=== PATIENT | male | born 1965 | race Caucasian/White ===

== ENCOUNTER → 2019-12-21 12:27 | Outpatient (BNVA) | payer MEDICARE, MEDICAID, SELFPAY | PROVIDERS: PCP Internal Medicine; Referring Provider Internal Medicine; Visit Provider Internal Medicine Cardiovascular Disease | DX: I45.2 Bifascicular block (principal); F20.9 Schizophrenia, unspecified; Z79.899 Other long term (current) drug therapy | CPT/HCPCS: 99213 ==

== ENCOUNTER 2019-12-28 21:07 | Inpatient (IN) | payer MEDICARE, MEDICAID, SELFPAY ==
--- NOTE | 2019-12-28 21:19 | ED_ITS ---
HPI - Weakness General Chief complaint: Fall Stated complaint: WEAKNESS Time Seen by Provider: 12/28/19 21:19 Source: patient Mode of arrival: ambulatory Limitations: other (cognitive impairment) History of Present Illness MD Complaint: generalized weakness and difficulty walking Onset (ago): day(s) (2) Duration: constant Location: generalized Migration: none Severity: moderate Relieving factors: none Exacerbating factors: none Context: recent illness (had fever yesterday tested for COVID) Associated symptoms: loss of appetite and myalgias Related Data Home Medications Medication Instructions Recorded Confirmed ammonium lactate 12 % topical cream 1 applic TOPICAL DAILY@0730 12/21/19 12/29/19 citalopram 40 mg tablet 40 mg PO DAILY tab 12/21/19 12/29/19 clozapine 100 mg tablet 200 mg PO BEDTIME tab 12/21/19 12/29/19 divalproex 500 mg tablet,extended 2,000 mg PO BEDTIME 12/21/19 12/29/19 release 24 hr furosemide 20 mg tablet 20 mg PO DAILY PRN tab 12/21/19 12/29/19 lorazepam 1 mg tablet 1 mg PO BID tab 12/21/19 12/29/19 metoprolol tartrate 25 mg tablet 12.5 mg PO BEDTIME tab 12/21/19 12/29/19 tamsulosin 0.4 mg capsule 0.4 mg PO BEDTIME 12/21/19 12/29/19 trazodone 100 mg tablet 100 mg PO BEDTIME tab 12/21/19 12/29/19 acetaminophen 500 mg PO Q8H PRN 12/29/19 12/29/19 ascorbic acid (vitamin C) [Vitamin 500 mg PO BID 12/29/19 12/29/19 C] betamethasone dipropionate 1 applic TOPICAL BID PRN 12/29/19 12/29/19 [Diprolene] dextromethorphan-guaifenesin 10 ml PO Q4H PRN 12/29/19 12/29/19 [Robafen DM Cough] lactase [Lactaid] 3,000 unit PO TIDAC 12/29/19 12/29/19 loperamide [Imodium A-D] 2 mg PO Q8H PRN 12/29/19 12/29/19 magnesium hydroxide [Milk of 15 ml PO DAILY PRN 12/29/19 12/29/19 Magnesia] sennosides [Senna Lax] 17.2 mg PO DAILY PRN 12/29/19 12/29/19 therapeutic multivitamin [Thera] 1 tab PO QAM 12/29/19 12/29/19 trazodone 100 mg PO BEDTIME PRN 12/29/19 12/29/19 Previous Rx's Medication Instructions Recorded cholecalciferol (vitamin D3) 25 25 mcg PO DAILY #30 cap 12/12/19 mcg (1,000 unit) capsule omega-3 fatty acids-fish oil 360 2 cap PO BEDTIME #60 cap 12/19/19 mg-1,200 mg capsule oxybutynin chloride 10 mg 10 mg PO BEDTIME #30 tab 12/19/19 tablet,extended release 24 hr Allergies Allergy/AdvReac Type Severity Reaction Status Date / Time Penicillins Allergy Mild RASH Verified 12/28/19 21:20 poison jason extract Allergy Mild RASH Verified 12/28/19 21:20 [POISON JASON] poison sumac extract Allergy Mild RASH Verified 12/28/19 21:20 [POISON SUMAC] haloperidol [From Haldol] AdvReac Severe OVER Verified 12/28/19 21:20 SEDATION Review of Systems Review of Systems: ROS unable to be obtained due to poor historian and cognitive impairment [facility] Past Medical History Medical History Bifascicular block Surgical History History of colonoscopy (~09/30/11) History of esophagogastroduodenoscopy (EGD) (~12/23/11) Family History Family History Father No problems noted. Mother No problems noted. Social History Social History Household Members: Other Housing: Other Housing Other:: [facility] Do you presently have visiting nurse or other home services: No Alcohol intake: never Smoking Status: Never smoker Smoked in Last 30 Days: No Patient Interested in Nicotine Replacement: No Patient Given Instructions on How to Stop Smoking: No (Not smoking) Second Hand Smoke Exposure: No Use of substances other than those prescribed or required for medical reasons: No Currently Displaying Signs/Symptoms of Drug Intoxication Withdrawal: No Any prior treatment program specific to substance use: No Have you been hit, kicked, punched, or otherwise hurt by someone within the past year? If so, by whom?: No Do you feel safe in your current relationship?: No Current Relationship Is there a partner from a previous relationship who is making you feel unsafe now?: No Are you made to feel afraid or neglected: No Spiritual Healthcare Practices: No Evangelical Healthcare Practices: No Cultural Healthcare Practices: No Advance Directives: No Advance Directives Information Provided: No Advance Directives on File: No Do you have thoughts of harming others: None Do you have a plan to hurt others: No Plan Recently lost weight without trying: No Physical Exam Vital Signs: Vital Signs: Vital Signs Temp Pulse Resp BP Pulse Ox 12/29/19 01:59 98 F 72 18 100/59 L 94 12/29/19 00:00 98 F 74 18 129/69 96 12/28/19 21:47 98.4 F 81 17 101/52 L 97 12/28/19 21:20 98.4 F 82 18 101/52 L 95 Body Mass Index 29.2 Appearance: Alert. will not answer all questions of orientation gets mad. No acute distress. Eyes: Pupils equal, round and reactive to light. ENT: Pharynx dry MMM Neck: Normal inspection. Neck supple. CVS: Normal heart rate and rhythm. Pulses normal. Respiratory: No respiratory distress. Breath sounds normal. Abdomen: Soft and nontender. Skin: Skin warm and dry. Normal skin color. Normal skin turgor. Extremities: No lower extremity edema. No calf ttp Neuro: Flat affect, intermittent agitation No motor deficit. No sensory deficit. MDM - Weakness MDM Narrative Medical decision making narrative: 54 yo male with cognitive impairment and schizoaffective disorder - here with fever yesterday tested for COVID no results, at this time tells me his whole body hurts - will need basic labs, CXR, UA dispo per results and findings. discharge: diagnosis nontraumatic rhabdomyolysis dehydration admit to inpatient unit. Lab Data Result diagrams: 12/28/19 22:02 12/28/19 22:03 Labs: Lab Results 12/28/19 12/28/19 12/28/19 Range/Units 22:02 22:02 22:02 WBC 9.8 (4.8-10.8) X10*3/uL RBC 3.31 L (4.60-5.80) X10*6/uL Hgb 10.4 L (14.0-18.0) g/dl Hct 29.9 L (42-52) % MCV 90.3 (80-98) fL MCH 31.4 (27.0-33.0) pg MCHC 34.8 (31.0-36.0) g/dl RDW 13.2 (11.0-16.0) % Plt Count 124 L (160-400) X10*3/uL MPV 10.0 (9.4-12.4) fL Immature Gran % (Auto) 0.4 (0.0-0.4) % Neut % (Auto) 70.7 (45-73) % Lymph % (Auto) 11.3 L (20-40) % [place] % (Auto) 17.2 H (2-11) % Eos % (Auto) 0.1 (0-4) % Baso % (Auto) 0.3 (0-2) % Lymph # (Auto) 1.1 L (1.2-4.9) X10*3/uL [place] # (Auto) 1.7 H (0.1-1.2) X10*3/uL Eos # (Auto) 0.0 (0.0-0.4) X10*3/uL Baso # (Auto) 0.0 (0.0-0.2) X10*3/uL Abs Immat Gran (auto) 0.04 H (0.00-0.03) X10*3/uL Absolute Neuts (auto) 6.9 (2.0-8.3) X10*3/uL Absolute Nucleated RBC 0.000 (0.0-0.012) X10*3/uL Nucleated RBC % (auto) 0.0 (0.0-0.2) /100WBC Smear Tech's Comments VERIFIED Hold Blue Top SEE NOTE Sodium (135-145) mmol/L Potassium (3.3-5.1) mmol/l Chloride (96-108) mmol/L Carbon Dioxide (22-29) mmol/L Anion Gap (12-20) BUN (9-16) mg/dL Creatinine (0.5-1.4) mg/dL Estim Creat Clear Calc Estimated GFR Random Glucose (60-115) mg/dL Lactic Acid (0.5-2.0) mmol/L Calcium (8.4-10.2) mg/dL Magnesium (1.6-2.6) mg/dL Total Bilirubin (0.0-1.0) mg/dL Direct Bilirubin (0.0-0.5) mg/dL AST (5-37) U/L ALT (0-40) U/L Alkaline Phosphatase (39-117) U/L Lactate Dehydrogenase (118-273) U/L Total Creatine Kinase (38-174) U/L Troponin I High Sens 25.8 (<3.5-35.0) ng/L Total Protein (6.5-8.0) g/dL Albumin (3.5-5.0) g/dL Lipase (8-78) U/L Valproic Acid (50.0-100.0) mcg/mL Coronavirus (PCR) (Negative) 12/28/19 12/28/19 12/29/19 Range/Units 22:03 22:03 00:56 WBC (4.8-10.8) X10*3/uL RBC (4.60-5.80) X10*6/uL Hgb (14.0-18.0) g/dl Hct (42-52) % MCV (80-98) fL MCH (27.0-33.0) pg MCHC (31.0-36.0) g/dl RDW (11.0-16.0) % Plt Count (160-400) X10*3/uL MPV (9.4-12.4) fL Immature Gran % (Auto) (0.0-0.4) % Neut % (Auto) (45-73) % Lymph % (Auto) (20-40) % [place] % (Auto) (2-11) % Eos % (Auto) (0-4) % Baso % (Auto) (0-2) % Lymph # (Auto) (1.2-4.9) X10*3/uL [place] # (Auto) (0.1-1.2) X10*3/uL Eos # (Auto) (0.0-0.4) X10*3/uL Baso # (Auto) (0.0-0.2) X10*3/uL Abs Immat Gran (auto) (0.00-0.03) X10*3/uL Absolute Neuts (auto) (2.0-8.3) X10*3/uL Absolute Nucleated RBC (0.0-0.012) X10*3/uL Nucleated RBC % (auto) (0.0-0.2) /100WBC Smear Tech's Comments Hold Blue Top Sodium 130 L (135-145) mmol/L Potassium 3.8 (3.3-5.1) mmol/l Chloride 98 (96-108) mmol/L Carbon Dioxide 23 (22-29) mmol/L Anion Gap 13 (12-20) BUN 23 H (9-16) mg/dL Creatinine 0.93 (0.5-1.4) mg/dL Estim Creat Clear Calc 104.4 Estimated GFR > 60 Random Glucose 114 (60-115) mg/dL Lactic Acid 0.8 (0.5-2.0) mmol/L Calcium 8.3 L (8.4-10.2) mg/dL Magnesium 1.7 (1.6-2.6) mg/dL Total Bilirubin 0.5 (0.0-1.0) mg/dL Direct Bilirubin 0.2 (0.0-0.5) mg/dL AST 118 H (5-37) U/L ALT 31 (0-40) U/L Alkaline Phosphatase 44 (39-117) U/L Lactate Dehydrogenase 243 (118-273) U/L Total Creatine Kinase 5210 H (38-174) U/L Troponin I High Sens (<3.5-35.0) ng/L Total Protein 5.9 L (6.5-8.0) g/dL Albumin 3.6 (3.5-5.0) g/dL Lipase 19 (8-78) U/L Valproic Acid 83.0 (50.0-100.0) mcg/mL Coronavirus (PCR) NEGATIVE (Negative) ECG Data Attestation: I personally reviewed and interpreted this ECG as follows: ECG interpretation date: 12/28/19 ECG interpretation time: 23:59 Interpretation: Rate: 74 Rhythm: NSR [place]: left, LVH Normal P waves. Normal LIZETH. RBBB ST T wave : normal qTC: normal prior studies: no acute ischemia The study has been interpreted contemporaneously by me. . Discharge Plan Discharge Clinical Impression: Acute dehydration Rhabdomyolysis Qualifiers: Rhabdomyolysis type: non-traumatic Qualified Code(s): M62.82 - Rhabdomyolysis Patient Disposition: Admitted As Inpatient Interventions: Admission Worksheet (ED) Last Done: 12/29/19 03:51 Discharge Date/Time: 12/29/19 03:52
[2019-12-28 21:20] VITALS: BP 101/52; BP 118/76; PULSE 82; PULSE 85; RESP 18; TEMP 36.9; O2SAT 94; O2SAT 95; BMI 29.2
[2019-12-28 21:47] VITALS: BP 101/52; PULSE 81; RESP 17; TEMP 36.9; O2SAT 97
--- NOTE | 2019-12-28 21:48 | ECG_ITS ---
Test Reason : FALL Blood Pressure : / mmHG Vent. Rate : 074 BPM Atrial Rate : 074 BPM P-R Int : 150 ms QRS Dur : 152 ms QT Int : 460 ms P-R-T Axes : 065 -35 037 degrees QTc Int : 510 ms Normal sinus rhythm Left axis deviation Right bundle branch block Minimal voltage criteria for LVH, may be normal variant Abnormal ECG Heart rate has decreased Referred By: Sophie Sarkar Electronically Signed By:NIKOS WANG MD
--- NOTE | 2019-12-28 21:49 | XR_ITS ---
EXAMINATION: XR CHEST CLINICAL INFORMATION: Weakness. COMPARISON: Chest x-ray 04/14/2011 TECHNIQUE: Frontal portable view of the chest was obtained. 10:17 PM FINDINGS: Lung volume is low causing crowding of the bronchovascular markings. Allowing for low inspiratory effort there does not appear to be acute change. No pulmonary vascular congestion. There is no focal consolidation, no pleural effusion or pneumothorax. The cardiac and mediastinal contours are normal. The heart size is normal. XR/XR chest 1V IMPRESSION: No acute abnormality of the chest.
[2019-12-28 22:14] LABS: Basophils Percent Auto 0.3 % (0-2); Eosinophils Percent Auto 0.1 % (0-4); Hematocrit 29.9 % (42-52); Hemoglobin 10.4 g/dl (14.0-18.0); Imm Gran Abs Auto 0.04 X10*3/uL (0.00-0.03); Imm Gran Pct Auto 0.4 % (0.0-0.4); Lymphocytes Absolute Auto 1.1 X10*3/uL (1.2-4.9); Lymphocytes Percent Auto 11.3 % (20-40); MANUAL DIFF FLAG SCAN; Mean Corpuscular HGB Conc 34.8 g/dl (31.0-36.0); Mean Corpuscular Hemoglobin 31.4 pg (27.0-33.0); Mean Corpuscular Volume 90.3 fL (80-98); Monocytes Absolute Auto 1.7 X10*3/uL (0.1-1.2); Monocytes Percent Auto 17.2 % (2-11); Neutrophils Absolute Auto 6.9 X10*3/uL (2.0-8.3); Neutrophils Percent Auto 70.7 % (45-73); Platelet Count 124 X10*3/uL (160-400); Red Blood Count 3.31 X10*6/uL (4.60-5.80); Red Cell Distribution Width 13.2 % (11.0-16.0); SCAN SMEAR FLAG 1; White Blood Count 9.8 X10*3/uL (4.8-10.8)
[2019-12-28 22:36] LABS: SLIDE REVIEW VERIFIED
[2019-12-28 22:52] LABS: Lactic Acid 0.8 mmol/L (0.5-2.0)
[2019-12-28 22:53] LABS: Alanine Aminotransferase 31 U/L (0-40); Albumin Level 3.6 g/dL (3.5-5.0); Alkaline Phosphatase 44 U/L (39-117); Anion Gap 13 (12-20); Aspartate Amino Transferase 118 U/L (5-37); Bilirubin Direct 0.2 mg/dL (0.0-0.5); Bilirubin Total 0.5 mg/dL (0.0-1.0); Blood Urea Nitrogen 23 mg/dL (9-16); Calcium 8.3 mg/dL (8.4-10.2); Carbon Dioxide 23 mmol/L (22-29); Chloride 98 mmol/L (96-108); Creatinine Clr Calc Pharmacy 104.4; Estimated Glomerular Filt Rate > 60; Glucose Random 114 mg/dL (60-115); Lactate Dehydrogenase 243 U/L (118-273); Lipase 19 U/L (8-78); Magnesium 1.7 mg/dL (1.6-2.6); Potassium 3.8 mmol/l (3.3-5.1); Sodium 130 mmol/L (135-145); Total Protein 5.9 g/dL (6.5-8.0)
[2019-12-28] MEDS: ondansetron HCL 4 MG/2 ML VIAL IVPUSH (22:57)
[2019-12-28] MEDS: Acetaminophen 325 MG TABLET 650 MG PO (22:57)
[2019-12-28] MEDS: 0.9 % Sodium Chloride 1,000 ML 999 ML IVCONT ×2 (22:59)
[2019-12-29] VITALS (9 sets, daily range): BP systolic 100–158; BP diastolic 59–76; PULSE 63–80; RESP 16–20; TEMP 36.2–37.1; O2SAT 93–97
[2019-12-29 00:39] LABS: Troponin-I High Sensitivity 25.8 ng/L (<3.5-35.0)
[2019-12-29 02:04] LABS: SARS COV2 PCR INHOUSE NEGATIVE (Negative)
[2019-12-29] MEDS: Heparin Sodium,Porcine 5,000 UNIT/ML VIAL 5000 UNIT SUBCUT ×2 (04:44→17:14)
[2019-12-29] MEDS: 0.9 % Sodium Chloride 1,000 ML 100 ML IVCONT ×2 (04:44→17:09)
--- NOTE | 2019-12-29 05:15 | P.HPIM_ITS ---
History of Present Illness Date of Service: 12/29/19 Chief Complaint: rhabdomyolysis this is a 54-year-old male resident of [facility] who presents to the hospital after having been found to have fever the day prior, as well as falling out of bed. Patient is a poor historian and is very sleepy and unable to give much history.. It appears the patient had a fever at [facility] the day prior, he was tested for COVID with results pending, today patient had a fall by slipping out of bed. He and self is very sleepy but arousable. When asked more brought him into the hospital he says that he has been not feeling too well. He otherwise has no headache, change in vision, chest pain, shortness of breath, abdominal pain nausea or vomiting, no diarrhea or constipation, no urinary symptoms and no lower extremity edema. On arrival to the ED hemodynamically stable with no significant abnormal vit als labs are significant for normal WBC count, sodium of 130, BUN of 23, AST of 118, CPK of 5210, COVID negative patient will be further admitted for management of rhabdomyolysis patient is too sleepy to give past medical history Review of Systems Review of Systems: Yes all other systems are reviewed and are negative [facility] Medical History Bifascicular block Family History Father No problems noted. Mother No problems noted. Surgical History History of colonoscopy (~09/30/11) History of esophagogastroduodenoscopy (EGD) (~12/23/11) Social History Household Members: Other Housing: Other Housing Other:: [facility] Do you presently have visiting nurse or other home services: No Alcohol intake: never Smoking Status: Never smoker Smoked in Last 30 Days: No Patient Interested in Nicotine Replacement: No Patient Given Instructions on How to Stop Smoking: No (Not smoking) Second Hand Smoke Exposure: No Use of substances other than those prescribed or required for medical reasons: No Currently Displaying Signs/Symptoms of Drug Intoxication Withdrawal: No Any prior treatment program specific to substance use: No Have you been hit, kicked, punched, or otherwise hurt by someone within the past year? If so, by whom?: No Do you feel safe in your current relationship?: No Current Relationship Is there a partner from a previous relationship who is making you feel unsafe now?: No Are you made to feel afraid or neglected: No Spiritual Healthcare Practices: No Anabaptist Healthcare Practices: No Cultural Healthcare Practices: No Advance Directives: No Advance Directives Information Provided: No Advance Directives on File: No Do you have thoughts of harming others: None Do you have a plan to hurt others: No Plan Recently lost weight without trying: No Meds Allergies Allergy/AdvReac Type Severity Reaction Status Date / Time Penicillins Allergy Mild RASH Verified 12/28/19 21:20 poison jason extract Allergy Mild RASH Verified 12/28/19 21:20 [POISON JASON] poison sumac extract Allergy Mild RASH Verified 12/28/19 21:20 [POISON SUMAC] haloperidol [From Haldol] AdvReac Severe OVER Verified 12/28/19 21:20 SEDATION Home Medications Medication Instructions Recorded Confirmed Type ammonium lactate 12 % topical cream 1 applic TOPICAL DAILY@0730 12/21/19 12/29/19 History citalopram 40 mg tablet 40 mg PO DAILY tab 12/21/19 12/29/19 History clozapine 100 mg tablet 200 mg PO BEDTIME tab 12/21/19 12/29/19 History divalproex 500 mg tablet,extended 2,000 mg PO BEDTIME 12/21/19 12/29/19 History release 24 hr furosemide 20 mg tablet 20 mg PO DAILY PRN tab 12/21/19 12/29/19 History lorazepam 1 mg tablet 1 mg PO BID tab 12/21/19 12/29/19 History metoprolol tartrate 25 mg tablet 12.5 mg PO BEDTIME tab 12/21/19 12/29/19 History tamsulosin 0.4 mg capsule 0.4 mg PO BEDTIME 12/21/19 12/29/19 History trazodone 100 mg tablet 100 mg PO BEDTIME tab 12/21/19 12/29/19 History acetaminophen 500 mg PO Q8H PRN 12/29/19 12/29/19 History ascorbic acid (vitamin C) [Vitamin 500 mg PO BID 12/29/19 12/29/19 History C] betamethasone dipropionate 1 applic TOPICAL BID PRN 12/29/19 12/29/19 History [Diprolene] dextromethorphan-guaifenesin 10 ml PO Q4H PRN 12/29/19 12/29/19 History [Robafen DM Cough] lactase [Lactaid] 3,000 unit PO TIDAC 12/29/19 12/29/19 History loperamide [Imodium A-D] 2 mg PO Q8H PRN 12/29/19 12/29/19 History magnesium hydroxide [Milk of 15 ml PO DAILY PRN 12/29/19 12/29/19 History Magnesia] sennosides [Senna Lax] 17.2 mg PO DAILY PRN 12/29/19 12/29/19 History therapeutic multivitamin [Thera] 1 tab PO QAM 12/29/19 12/29/19 History trazodone 100 mg PO BEDTIME PRN 12/29/19 12/29/19 History Physical Exam Vital Signs and Narrative: Vital Signs: Last Vital Signs Temp 97.1 F 12/29/19 04:17 Pulse 71 12/29/19 04:17 Resp 18 12/29/19 04:17 BP 127/61 12/29/19 04:17 Pulse Ox 97 12/29/19 04:17 Body Mass Index 29.2 Const: Other: sleepy but arousable, patient keeps falling asleep after every question General: cooperative and no acute distress Orientation/consciousness: patient oriented x3 Eyes: General: appearance normal, both eyes and all related structures Pupils: Equal, round and reactive pupils present Resp: Effort & Inspection: normal respiratory effort and able to speak in co mplete sentences Auscultation: clear to auscultation bilaterally Cardio: Rate: regular rate Rhythm: regular rhythm GI: Palpation (GI): Soft to palpation Auscultation: normal bowel sounds Skin: General skin exam: no rashes or lesions noted Neuro: General: patient oriented x3 Cranial nerves: Yes Equal, round and reactive pupils present Cognition (Neuro): normal cognition Extrem: General: Yes normal to inspection and Yes no pedal edema Results Labs Labs: Laboratory Tests 12/28/19 12/28/19 12/28/19 22:02 22:02 22:02 WBC 9.8 RBC 3.31 L Hgb 10.4 L Hct 29.9 L MCV 90.3 MCH 31.4 MCHC 34.8 RDW 13.2 Plt Count 124 L MPV 10.0 Immature Gran % (Auto) 0.4 Neut % (Auto) 70.7 Lymph % (Auto) 11.3 L [place] % (Auto) 17.2 H Eos % (Auto) 0.1 Baso % (Auto) 0.3 Lymph # (Auto) 1.1 L [place] # (Auto) 1.7 H Eos # (Auto) 0.0 Baso # (Auto) 0.0 Abs Immat Gran (auto) 0.04 H Absolute Neuts (auto) 6.9 Absolute Nucleated RBC 0.000 Nucleated RBC % (auto) 0.0 Smear Tech's Comments VERIFIED Hold Blue Top SEE NOTE Sodium Potassium Chloride Carbon Dioxide Anion Gap BUN Creatinine Estim Creat Clear Calc Estimated GFR Random Glucose Lactic Acid Calcium Magnesium Total Bilirubin Direct Bilirubin AST ALT Alkaline Phosphatase Lactate Dehydrogenase Total Creatine Kinase Troponin I High Sens 25.8 Total Protein Albumin Lipase Valproic Acid Coronavirus (PCR) 12/28/19 12/28/19 12/29/19 22:03 22:03 00:56 WBC RBC Hgb Hct MCV MCH MCHC RDW Plt Count MPV Immature Gran % (Auto) Neut % (Auto) Lymph % (Auto) [place] % (Auto) Eos % (Auto) Baso % (Auto) Lymph # (Auto) [place] # (Auto) Eos # (Auto) Baso # (Auto) Abs Immat Gran (auto) Absolute Neuts (auto) Absolute Nucleated RBC Nucleated RBC % (auto) Smear Tech's Comments Hold Blue Top Sodium 130 L Potassium 3.8 Chloride 98 Carbon Dioxide 23 Anion Gap 13 BUN 23 H Creatinine 0.93 Estim Creat Clear Calc 104.4 Estimated GFR > 60 Random Glucose 114 Lactic Acid 0.8 Calcium 8.3 L Magnesium 1.7 Total Bilirubin 0.5 Direct Bilirubin 0.2 AST 118 H ALT 31 Alkaline Phosphatase 44 Lactate Dehydrogenase 243 Total Creatine Kinase 5210 H Troponin I High Sens Total Protein 5.9 L Albumin 3.6 Lipase 19 Valproic Acid 83.0 Coronavirus (PCR) NEGATIVE Assessment and Plan (1) Rhabdomyolysis: Qualifiers: Rhabdomyolysis type: non-traumatic Qualified Code(s): M62.82 - Rhabdomyolysis Status: Acute (2) Acute dehydration: Status: Acute (3) BPH (benign prostatic hyperplasia): Status: Acute (4) Schizophrenia: Status: Acute (5) Bifascicular block: Status: Acute 54-year-old male with past medical history of schizophrenia will be admitted to the hospital for rhabdomyolysis # rhabdomyolysis - most likely secondary to the fall - patient also dehydrated, with elevated BUN creatinine not significantly elevated - unable to get extensive history from patient as he is a poor historian Plan: - Start him on IV fluids - follow CPK - follow BMP # acute dehydration - most likely secondary to poor oral intake and fall - will start him on IV fluids - follow BMP # BPH - continue tamsulosin # schizophrenia - continue citalopram, divalproex, trazodone, clonazepam, # bifascicular block - was seen by cardiology on the with no further management or testing recommended I do not have full past medical history of the patient and therefore at this time will take continues metoprolol as well as furosemide( no known history of heart failure) DVT prophylaxis: Heparin subcu
--- NOTE | 2019-12-29 05:24 | PC.NURSE ---
Arrived from [facility] per stretcher and transferred safely to bed. Alert and oriented x4, afebrile. Denied chest pain or shortness of breath. Incontinent of urine. Bladder scan for 112. Started IV fluids. Asleep at this time. Will continue care plan.
[2019-12-29] MEDS: Divalproex Sodium ER 500 MG TAB.ER.24H PO (08:47)
[2019-12-29] MEDS: Escitalopram Oxalate 20 MG TABLET PO (08:47)
[2019-12-29] MEDS: Metoprolol Tartrate 25 MG TABLET 12.5 MG PO (08:47)
[2019-12-29] MEDS: Tamsulosin HCL 0.4 MG CAPSULE PO (08:47)
[2019-12-29] MEDS: Cholecalciferol (Vitamin D3) 25 MCG TABLET PO (08:50)
[2019-12-29] MEDS: traZODone HCL 100 MG TABLET PO (08:50)
[2019-12-29] MEDS: Furosemide 20 MG TABLET PO (08:50)
--- NOTE | 2019-12-29 09:22 | MHC.CM.PN ---
IMM 12/29/19 MALE 54 DX [facility] LIV[facility] IN [facility]. SUPERVISION/ASSIST. NO AD. REQUESTED COPY OF HCP. BROTHER SANA IS HCP. HE WILL BRING A COPY THIS AFTERNOON. DP RETURN TO CUSTODIAL TRANSPORT SHOULD BE PROVIDED BY [facility]. CM WILL FOLLOW.
[2019-12-29] MEDS: LORazepam 1 MG TABLET PO (11:23)
--- NOTE | 2019-12-29 14:07 | P.EN_ITS ---
Event Note Event Note: patient seen examined chart reviewed patient offers no acute complaint at this time was sent to [facility] since he had a fever a day prior to this presentation and he fell off his bed patient denies any pain CPK is trending down will follow BMP and CPK at a.m. patient COVID test is negative valproic acid level is within therapeutic range reviewed old echocardiogram that showed a preserved EF 65-70% with normal diastolic function, Therefore will discontinue Lasix for now while recieving ivf.
[2019-12-29] MEDS: cloZAPine 100 MG TABLET 200 MG PO (21:41)
[2019-12-30] VITALS (7 sets, daily range): BP systolic 123–168; BP diastolic 73–79; PULSE 75–101; RESP 16–20; TEMP 36.6–36.7; O2SAT 95–97
[2019-12-30] MEDS: 0.9 % Sodium Chloride Flush 3 ML SYRINGE IVFLUSH ×2 (00:14→18:31)
[2019-12-30] MEDS: 0.9 % Sodium Chloride 1,000 ML 100 ML IVCONT ×2 (00:15→02:43)
[2019-12-30 01:10] LABS: Glucose Urine UA NEG (NEG); Leukocyte Esterase Urine NEG (NEG); Nitrite Urine NEG (NEG); PH 5.5 (5.0-8.0); Urine Blood NEG (NEG); Urine Ketones 15 MG/DL (NEG); Urine Protein NEG (NEG-TRACE)
[2019-12-30 01:42] LABS: Appearance Urine CLEAR; Color Urine YELLOW
[2019-12-30 01:53] LABS: RBC Urine 0 /HPF (0); WBC Urine 0 /HPF (0-4)
[2019-12-30 01:54] LABS: Uric Acid Crystals Urine TRACE /LPF
[2019-12-30] MEDS: Heparin Sodium,Porcine 5,000 UNIT/ML VIAL 5000 UNIT SUBCUT (02:43)
[2019-12-30 06:07] LABS: Anion Gap 13 (12-20); Blood Urea Nitrogen 12 mg/dL (9-16); Calcium 8.2 mg/dL (8.4-10.2); Carbon Dioxide 27 mmol/L (22-29); Chloride 99 mmol/L (96-108); Creatinine Clr Calc Pharmacy 149.4; Estimated Glomerular Filt Rate > 60; Glucose Random 112 mg/dL (60-115); Potassium 4.4 mmol/l (3.3-5.1); Sodium 135 mmol/L (135-145)
[2019-12-30 06:18] LABS: Basophils Percent Auto 0.3 % (0-2); Eosinophils Absolute Auto 0.2 X10*3/uL (0.0-0.4); Eosinophils Percent Auto 2.1 % (0-4); Hematocrit 32.1 % (42-52); Hemoglobin 10.5 g/dl (14.0-18.0); Imm Gran Abs Auto 0.03 X10*3/uL (0.00-0.03); Imm Gran Pct Auto 0.3 % (0.0-0.4); Lymphocytes Absolute Auto 2.3 X10*3/uL (1.2-4.9); Lymphocytes Percent Auto 23.6 % (20-40); MANUAL DIFF FLAG SCAN; Mean Corpuscular HGB Conc 32.7 g/dl (31.0-36.0); Mean Corpuscular Hemoglobin 30.3 pg (27.0-33.0); Mean Corpuscular Volume 92.5 fL (80-98); Mean Platelet Volume 10.5 fL (9.4-12.4); Monocytes Absolute Auto 1.8 X10*3/uL (0.1-1.2); Monocytes Percent Auto 18.2 % (2-11); Neutrophils Absolute Auto 5.4 X10*3/uL (2.0-8.3); Neutrophils Percent Auto 55.5 % (45-73); Platelet Count 124 X10*3/uL (160-400); Red Blood Count 3.47 X10*6/uL (4.60-5.80); Red Cell Distribution Width 13.1 % (11.0-16.0); SCAN SMEAR FLAG 1; White Blood Count 9.8 X10*3/uL (4.8-10.8)
[2019-12-30] MEDS: LORazepam 1 MG TABLET PO (08:24)
[2019-12-30] MEDS: Divalproex Sodium ER 500 MG TAB.ER.24H PO (08:24)
[2019-12-30] MEDS: traZODone HCL 100 MG TABLET PO (08:24)
[2019-12-30] MEDS: Metoprolol Tartrate 25 MG TABLET 12.5 MG PO (08:24)
[2019-12-30] MEDS: Escitalopram Oxalate 20 MG TABLET PO (08:24)
[2019-12-30] MEDS: Tamsulosin HCL 0.4 MG CAPSULE PO (08:25)
[2019-12-30] MEDS: Cholecalciferol (Vitamin D3) 25 MCG TABLET PO (08:25)
[2019-12-30 08:26] LABS: SLIDE REVIEW VERIFIED
--- NOTE | 2019-12-30 13:10 | MHC.CM.PN ---
PT is recommending STR, [facility]. CM spoke with Patient's Brother/HCP/Chidi @ [phone], who requested that CM contact [facility] @ [phone] to see if Finn had any suggestions for SNF choices. Finn had no SNF preferences and CM phoned Chidi back to inform him of that, but was only able to leave a detailed message for Chidi. CM awaits a return call from Chidi.
--- NOTE | 2019-12-30 13:31 | HO.PM.IMPN ---
Subjective Subjective Date of Service: 12/30/19 Interval History: patient complaining of weakness feels he has difficulty with ambulation, other advised denies pain, no other acute issues overnight. Review of Systems Difficult to obtain due to underlying psychiatric history CREDIT ADVISOR no headache, no dizziness CVS no chest pain GI no nausea, no vomiting Physical Exam Vital Signs: Vital Signs: Vital Signs Temp Pulse Resp BP Pulse Ox 12/30/19 12:45 75 128/73 97 12/30/19 11:04 98.0 F 75 18 128/73 97 12/30/19 08:24 84 168/79 H 12/30/19 07:51 97.8 F 84 20 168/79 H 95 12/30/19 04:43 98 F 101 H 20 123/73 95 12/30/19 04:00 98 F 98 20 123/73 95 12/29/19 22:58 98.7 F 80 20 158/76 H 95 12/29/19 20:51 98.4 F 72 20 140/76 H 97 12/29/19 16:00 97.7 F 69 16 124/70 97 Body Mass Index 29.2 General sitting comfortably in chair. Neck is supple no JVD. CVS regular rate rhythm, Respiratory lungs clear to auscultation, no respiratory distress, no wheeze, no rhonchi. Gastrointestinal abdomen soft, obese, nontender, bowel sounds audible Extremities no clubbing, no cyanosis or edema. Neuro nonfocal ,patient moving all 4 extremity, speech clear. Skin no rash Objective Data Current Medications Generic Name Dose Route Start Last Admin Trade Name Kyleq PRN Reason Stop Dose Admin Acetaminophen 650 mg 12/29/19 04:09 Acetaminophen 325 Mg Tablet PO Q6H PRN Pain, Mild (Pain Scale 1-3) Clozapine 200 mg 12/29/19 21:00 12/29/19 21:41 Clozapine 100 Mg Tablet PO 200 mg BEDTIME RUPINDER Administration Divalproex Sodium 500 mg 12/29/19 09:00 12/30/19 08:24 Divalproex Sodium Er 500 Mg Tab.Er.24h PO 500 mg DAILY RUPINDER Administration Escitalopram Oxalate 20 mg 12/29/19 09:00 12/30/19 08:24 Escitalopram Oxalate 20 Mg Tablet PO 20 mg DAILY RUPINDER Administration Heparin Sodium (Porcine) 5,000 unit 12/29/19 04:09 12/30/19 02:43 Heparin Sodium,Porcine 5,000 Unit/Ml Vial SUBCUT 5,000 unit Q12H RUPINDER Administration Sodium Chloride 1,000 mls @ 100 mls/hr 12/29/19 04:09 12/30/19 08:32 Ns IVCONT Not Given .Q10H RUPINDER Lactic Acid 1 appl 12/29/19 09:00 12/30/19 08:26 Ammonium Lactate 12 % Cream 140 Gm Tube TOPICAL Not Given BID [facility] Protocol Lorazepam 1 mg 12/29/19 09:00 12/30/19 08:24 Lorazepam 1 Mg Tablet PO 1 mg DAILY RUPINDER Administration Metoprolol Tartrate 12.5 mg 12/29/19 09:00 12/30/19 08:24 Metoprolol Tartrate 25 Mg Tablet PO 12.5 mg DAILY RUPINDER Administration Protocol Ondansetron HCl 4 mg 12/29/19 04:09 Ondansetron Hcl 4 Mg/2 Ml Vial IVPUSH Q8H PRN Nausea and Vomiting Oxybutynin Chloride 10 mg 12/29/19 21:00 12/29/19 21:41 Oxybutynin Chloride Er 5 Mg Tab.Er.24 PO 10 mg BEDTIME [facility] Administration Pharmacy Consult 1 each 12/28/19 23:13 Consult Rx Perform Med Rec MISCELLANE ONCE PRN Consult order Sodium Chloride 3 ml 12/29/19 08:00 12/30/19 08:25 0.9 % Sodium Chloride Flush 3 Ml Syringe IVFLUSH Not Given QSHIFT [facility] Tamsulosin HCl 0.4 mg 12/29/19 09:00 12/30/19 08:25 Tamsulosin Hcl 0.4 Mg Capsule PO 0.4 mg DAILY RUPINDER Administration Trazodone HCl 100 mg 12/29/19 09:00 12/30/19 08:24 Trazodone Hcl 100 Mg Tablet PO 100 mg DAILY [facility] Administration Vitamin D 25 mcg 12/29/19 09:00 12/30/19 08:25 Cholecalciferol (Vitamin D3) 25 Mcg Tablet PO 25 mcg DAILY [facility] Administration Labs CBC & Chem 7: 12/30/19 05:11 12/30/19 05:11 Assessment and Plan (1) Rhabdomyolysis: Status: Acute (2) Unsteady gait: Status: Acute (3) Bifascicular block: Status: Acute (4) BPH (benign prostatic hyperplasia): Status: Acute Assessment and Plan: 54-year-old male with past medical history of schizophrenia will be admitted to the hospital for rhabdomyolysis # rhabdomyolysis - most likely secondary to the fall from bed, CPK is trending down renal functions stable, will DC Lasix and IV fluid encourage by mouth fluid. # fever noted to have fever prior to coming to the hospital no recurrent fevers noted, COVID test negative. # Unsteady gait patient complained of difficulty with ambulation therefore obtained PT eval and they recommend short-term rehab # BPH - continue tamsulosin # schizophrenia - continue citalopram, divalproex, trazodone, clonazepam, # bifascicular block - was seen by cardiology on the with no further management or testing recommended
--- NOTE | 2019-12-30 13:59 | MHC.CM.PN ---
CM received a return call from Brother/HCP/Chidi. Chidi is agreeable to referrals to [facility]. Referrals have been made and [facility] awaits responses, in order to present options to Chidi.
--- NOTE | 2019-12-30 14:51 | P.DS_ITS ---
DS: Providers Provider Date of admission: 12/29/19 02:16 Primary care physician: Unknown Physician DS: Diagnosis Discharge Diagnosis (1) Rhabdomyolysis: Status: Acute (2) Unsteady gait: Status: Acute (3) Bifascicular block: Status: Acute (4) BPH (benign prostatic hyperplasia): Status: Acute DS: Summary Hospital Course Hospital Course: History of presenting illness 54-year-old male resident of [facility]dc [facility] who presents to the hospital after having been found to have fever the day prior, as well as falling out of bed. Patient is a poor historian and is very sleepy and unable to give much history.. It appears the patient had a fever at [facility] the day prior, he was tested for COVID with results pending, today patient had a fall by slipping out of bed. He and self is very sleepy but arousable. When asked more brought him into the hospital he says that he has been not feeling too well. He otherwise has no headache, change in vision, chest pain, shortness of breath, abdominal pain nausea or vomiting, no diarrhea or constipation, no urinary symptoms and no lower extremity edema. patient admitted to hospital for treatment of rhabdomyolysis. On arrival to the ED hemodynamically stable with no significant abnormal vitals labs are significant for normal WBC count, sodium of 130, BUN of 23, AST of 118, CPK of 5210, COVID negative hospital course # rhabdomyolysis - most likely secondary to the fall from bed, CPK is trending down from 5210 to 2837, after IV hydration,renal function is stable, will DC Lasix and encourage by mouth fluid. # fever pt.noted to have fever prior to coming to the hospital, no recurrent fevers noted, COVID test negative. # bifascicular block - was seen by cardiology on the December 19 and no further management or testing was recommended # schizophrenia recommend to continue all home medication # unsteady gait patient evaluated by Physical therapy and they recommended short-term rehab due to unsteady gait decreased balance takes recent strength and high risk for fall patient being transferred to Snf for less than 30 days Time Spent with Patient Time attestation: Total time spent providing and/or coordinating discharge services: Physical Exam Vital Signs: Vital Signs: Vital Signs Temp Pulse Resp BP Pulse Ox 12/30/19 12:45 75 128/73 97 12/30/19 11:04 98.0 F 75 18 128/73 97 12/30/19 08:24 84 168/79 H 12/30/19 07:51 97.8 F 84 20 168/79 H 95 12/30/19 04:43 98 F 101 H 20 123/73 95 12/30/19 04:00 98 F 98 20 123/73 95 12/29/19 22:58 98.7 F 80 20 158/76 H 95 12/29/19 20:51 98.4 F 72 20 140/76 H 97 12/29/19 16:00 97.7 F 69 16 124/70 97 Body Mass Index 29.2 General patient resting comfortably in no acute distress. Neck is supple no JVD. CVS regular rate rhythm, Respiratory lungs clear to auscultation, no respiratory distress, no wheeze, no rhonchi. Gastrointestinal abdomen soft, obese, nontender, bowel sounds audible, no guarding , no rigidity. Extremities no clubbing, cyanosis or pitting edema. Neuro nonfocal patient moving all 4 extremity speech clear. Skin no rash DS: Data Data Completed and Pending Labs on day of discharge: Labs from last 24 hours 12/30/19 12/30/19 12/30/19 05:11 05:11 05:11 WBC 9.8 RBC 3.47 L Hgb 10.5 L Hct 32.1 L MCV 92.5 MCH 30.3 MCHC 32.7 RDW 13.1 Plt Count 124 L MPV 10.5 Immature Gran % (Auto) 0.3 Neut % (Auto) 55.5 Lymph % (Auto) 23.6 Gila % (Auto) 18.2 H Eos % (Auto) 2.1 Baso % (Auto) 0.3 Lymph # (Auto) 2.3 Gila # (Auto) 1.8 H Eos # (Auto) 0.2 Baso # (Auto) 0.0 Abs Immat Gran (auto) 0.03 Absolute Neuts (auto) 5.4 Absolute Nucleated RBC 0.000 Nucleated RBC % (auto) 0.0 Smear Tech's Comments VERIFIED Sodium 135 Potassium 4.4 Chloride 99 Carbon Dioxide 27 Anion Gap 13 BUN 12 Creatinine 0.65 Estim Creat Clear Calc 149.4 Estimated GFR > 60 Random Glucose 112 Calcium 8.2 L Total Creatine Kinase 2837 H D Urine Color Urine Appearance Urine pH Ur Specific [place] Urine Protein Urine Glucose (UA) Urine Ketones Urine Blood Urine Nitrite Ur Leukocyte Esterase Urine RBC Urine WBC Ur Squamous Epith Cells Uric Acid Crystals Urine Bacteria 12/30/19 00:38 WBC RBC Hgb Hct MCV MCH MCHC RDW Plt Count MPV Immature Gran % (Auto) Neut % (Auto) Lymph % (Auto) Gila % (Auto) Eos % (Auto) Baso % (Auto) Lymph # (Auto) Gila # (Auto) Eos # (Auto) Baso # (Auto) Abs Immat Gran (auto) Absolute Neuts (auto) Absolute Nucleated RBC Nucleated RBC % (auto) Smear Tech's Comments Sodium Potassium Chloride Carbon Dioxide Anion Gap BUN Creatinine Estim Creat Clear Calc Estimated GFR Random Glucose Calcium Total Creatine Kinase Urine Color YELLOW Urine Appearance CLEAR Urine pH 5.5 Ur Specific [place] 1.020 Urine Protein NEG Urine Glucose (UA) NEG Urine Ketones 15 Urine Blood NEG Urine Nitrite NEG Ur Leukocyte Esterase NEG Urine RBC 0 Urine WBC 0 Ur Squamous Epith Cells NONE Uric Acid Crystals TRACE Urine Bacteria NONE Discharge Plan Discharge Patient Disposition: Xfer SNF Referrals: Physician,Unknown [Primary Care Provider] - Discharge Medications: Continued cholecalciferol (vitamin D3) 25 mcg (1,000 unit) capsule 25 mcg PO DAILY Qty: 30 RF: 8 omega-3 fatty acids-fish oil [Fish Oil] 360-1,200 mg capsule 2 cap PO BEDTIME Qty: 60 RF: 5 oxybutynin chloride 10 mg tablet extended release 24hr 10 mg PO BEDTIME Qty: 30 RF: 5 tamsulosin 0.4 mg capsule 0.4 mg PO BEDTIME Qty: 30 RF: 3 sennosides [Senna Lax] 8.6 mg Tablet 17.2 mg PO DAILY PRN (Reason: Constipation) RF: 0 dextromethorphan-guaifenesin [Robafen DM Cough] 10-100 mg/5 mL Liquid 10 ml PO Q4H PRN (Reason: Cough) RF: 0 loperamide [Imodium A-D] 2 mg Tablet 2 mg PO Q8H PRN (Reason: Loose Stool) RF: 0 acetaminophen 500 mg Tablet 500 mg PO Q8H PRN (Reason: Pain, Mild) RF: 0 magnesium hydroxide [Milk of Magnesia] 400 mg/5 mL Suspension 15 ml PO DAILY PRN (Reason: Constipation) RF: 0 lactase [Lactaid] 3,000 unit Tablet 3,000 unit PO TIDAC RF: 0 betamethasone dipropionate 0.05 % Cream 1 applic TOPICAL BID PRN (Reason: Pain) RF: 0 therapeutic multivitamin Tablet 1 tab PO QAM RF: 0 ascorbic acid (vitamin C) [Vitamin C] 500 mg Tablet 500 mg PO BID RF: 0 trazodone 100 mg Tablet 100 mg PO BEDTIME PRN (Reason: Insomnia) RF: 0 metoprolol tartrate 25 mg tablet 12.5 mg PO BEDTIME RF: 0 divalproex 500 mg tablet extended release 24 hr 2,000 mg PO BEDTIME RF: 0 lorazepam 1 mg tablet 1 mg PO BID RF: 0 ammonium lactate 12 % cream 1 applic topical DAILY@0730 RF: 0 citalopram 40 mg tablet 40 mg PO DAILY RF: 0 clozapine 100 mg tablet 200 mg PO BEDTIME RF: 0 trazodone 100 mg tablet 100 mg PO BEDTIME RF: 0 Discontinued furosemide 20 mg tablet 20 mg PO DAILY PRN (Reason: Shortness Of Breath) RF: 0 Discharge Orders: Discharge Order (Routine); Ordered 12/30/19 Ordered By: Keesha Kelly Activity on Discharge: As tolerated Visit Report Forms: Patient Portal Discharge page Care Plan Goals: being transferred to snf due to difficulty in ambulation will need physical therapy Health Concerns: Lasix held due to elevated CPK may resume Lasix if noted to have elevated blood pressure worsening leg edema Plan of Treatment: close outpatient follow-up with PCP.
--- NOTE | 2019-12-30 15:04 | MHC.CM.PN ---
Patient has been medically cleared for dc to [facility] today. Patient was accepted at 3 SNFs and CM spoke with Brother/Chidi, who is the Legal Guardian, not HCP as mentioned previously, and presented Chidi with a few options. Chidi's preference is [facility].Patient will dc to [facility] today at 5 PM, via [facility]. Chidi is aware of and in agreement with the dc plan. Last IMM addressed on 12/29/19.
== END 2019-12-30 18:00 | disposition skilled nursing facility (03) | DRG 558 ==
LOC: HO.ED 12-29 01:43 → HO.IMC 12-29 02:31
PROVIDERS: Admitting Provider Internal Medicine; Emergency Provider Emergency Medicine; Visit Provider Hospitalist
DX: M62.82 Rhabdomyolysis (principal); I45.2 Bifascicular block; G31.84 Mild cognitive impairment of uncertain or unknown etiology; E86.0 Dehydration; N40.0 Benign prostatic hyperplasia without lower urinary tract symptoms; R26.81 Unsteadiness on feet; F20.9 Schizophrenia, unspecified; Z20.828 Contact with and (suspected) exposure to other viral communicable diseases; Z88.0 Allergy status to penicillin; Z79.899 Other long term (current) drug therapy
CPT/HCPCS: 36415; 71045; 80048; 80076; 80164; 81001; 82550; 83605; 83615; 83690; 83735; 84484; 85025; 87635; 93005; 96361; 96374; 97162; 99285; J2405

== ENCOUNTER 2020-02-20 12:21 | Outpatient (REF) | payer MEDICARE, MEDICAID, SELFPAY ==
--- NOTE | 2020-02-20 12:25 | US_ITS ---
EXAMINATION: US VENOUS ULTRASOUND WITH DOPPLER LOWER EXTREMITY, RIGHT CLINICAL INFORMATION: Right leg swelling. COMPARISON: None TECHNIQUE: Ultrasound of the deep veins is performed from the hip to the calf with compression sonography and color and pulse Doppler assessment. Spectral analysis with color-flow imaging is performed. FINDINGS: There is normal venous compression and respiratory variation and augmented flow. The visualized common femoral vein, superficial femoral vein, profunda femoral vein, popliteal vein, and the trifurcation region shows no evidence of deep venous thrombosis. There is no significant popliteal fossa cyst. If the patient's symptoms persist, followup ultrasound in 5 days 7 days might be of value to exclude proximal propagation from a non-visualized calf vein. US/US venous duplex LE RT IMPRESSION: No DVT demonstrated in the right lower extremity.
== END 2020-02-20 12:22 | disposition home or self-care (01) ==
LOC: HO.US 12:21
PROVIDERS: PCP Internal Medicine; Visit Provider Internal Medicine
DX: M79.89 Other specified soft tissue disorders (principal)
CPT/HCPCS: 93971

== ENCOUNTER 2020-02-22 07:34 | Outpatient (REF) | payer MEDICARE, MEDICAID, SELFPAY ==
[2020-02-22 11:11] LABS: MANUAL DIFF FLAG NO
[2020-02-22 11:14] LABS: Basophils Absolute Auto 0.1 X10*3/uL (0.0-0.2); Basophils Percent Auto 0.7 % (0-2); Eosinophils Absolute Auto 0.3 X10*3/uL (0.0-0.4); Eosinophils Percent Auto 4.7 % (0-4); Hematocrit 38.8 % (42-52); Hemoglobin 12.9 g/dl (14.0-18.0); Imm Gran Abs Auto 0.03 X10*3/uL (0.00-0.03); Imm Gran Pct Auto 0.4 % (0.0-0.4); Lymphocytes Absolute Auto 2.4 X10*3/uL (1.2-4.9); Lymphocytes Percent Auto 34.1 % (20-40); Mean Corpuscular HGB Conc 33.2 g/dl (31.0-36.0); Mean Corpuscular Hemoglobin 30.2 pg (27.0-33.0); Mean Corpuscular Volume 90.9 fL (80-98); Mean Platelet Volume 10.6 fL (9.4-12.4); Monocytes Absolute Auto 0.7 X10*3/uL (0.1-1.2); Monocytes Percent Auto 9.7 % (2-11); Neutrophils Absolute Auto 3.6 X10*3/uL (2.0-8.3); Neutrophils Percent Auto 50.4 % (45-73); Platelet Count 209 X10*3/uL (160-400); Red Blood Count 4.27 X10*6/uL (4.60-5.80); Red Cell Distribution Width 13.5 % (11.0-16.0); White Blood Count 7.1 X10*3/uL (4.8-10.8)
[2020-02-22 11:45] LABS: Alanine Aminotransferase 15 U/L (0-40); Albumin Level 4.2 g/dL (3.5-5.0); Alkaline Phosphatase 65 U/L (39-117); Anion Gap 13 (12-20); Aspartate Amino Transferase 18 U/L (5-37); Bilirubin Total 0.5 mg/dL (0.0-1.0); Blood Urea Nitrogen 8 mg/dL (9-16); Calcium 9.3 mg/dL (8.4-10.2); Carbon Dioxide 29 mmol/L (22-29); Chloride 96 mmol/L (96-108); Cholesterol 164 mg/dL; Estimated Glomerular Filt Rate > 60; Glucose Fasting 116 mg/dL (60-99); HDL Cholesterol 47 mg/dL; Iron 65 mcg/dL (45-160); LDL Cholesterol Calculated 96 mg/dl; Percent Iron Saturation 19 % (15-50); Potassium 4.1 mmol/l (3.3-5.1); Sodium 134 mmol/L (135-145); Total Iron Binding Capacity 342 mcg/dL (228-428); Total Protein 7.2 g/dL (6.5-8.0); Triglycerides 109 mg/dL; Unsaturated Iron Binding 277 ug/dL
[2020-02-22 12:06] LABS: Ferritin 130 ng/mL (20-250)
== END 2020-02-22 07:35 | disposition home or self-care (01) ==
LOC: HO.HMGCLDS 07:34
PROVIDERS: PCP Internal Medicine; Visit Provider Internal Medicine
DX: D64.9 Anemia, unspecified (principal); M62.82 Rhabdomyolysis; R74.8 Abnormal levels of other serum enzymes; R79.89 Other specified abnormal findings of blood chemistry
CPT/HCPCS: 36415; 80053; 80061; 82550; 82728; 83540; 85025

== ENCOUNTER → 2020-03-19 15:20 | Outpatient (BNVA) | payer MEDICARE, MEDICAID, SELFPAY | PROVIDERS: PCP Internal Medicine; Visit Provider Nurse Practitioner Family | DX: D12.6 Benign neoplasm of colon, unspecified (principal); Z12.11 Encounter for screening for malignant neoplasm of colon | CPT/HCPCS: Q3014 ==

== ENCOUNTER 2020-04-30 09:31 | Day surgery (SDC) | payer MEDICARE, MEDICAID, SELFPAY ==
[2020-04-24 11:07] VITALS: BMI 33.7
--- NOTE | 2020-04-27 09:43 | P.CONAN_ITS ---
Documented by User: Kimberly Ferrellney 04/27/20 12:01 HPI - Anesthesia Eval Consult details Narrative: 54yo M for Colonoscopy [facility] resident. Brother is legal guardian to consent for patient Cardiac clearance requested by GI provider. Pt with Bifasc block. Eval by cardiology 12/2019, no concerning symptoms with 1 year f/u. Telephone call with KIRSTEN Liu from GI - she spoke directly to Dr Fam in cardiology. OK to proceed. [facility] Active Problems Active Problems: All Active Problems (Updated 04/24/20 @ 11:12 by Juanis Espana) Rhabdomyolysis (Acute) Schizophrenia (Acute) Unsteady gait (Acute) Swelling of right lower extremity (Acute) Anemia (Acute) Encounter for general adult medical examination with abnormal findings (Acute) Elevated creatine kinase level (Acute) Elevated liver enzymes (Acute) Urinary incontinence (Acute) Chronic venous insufficiency of lower extremity (Acute) Impaired fasting glucose (Acute) Tubular adenoma of colon (Acute) Essential hypertension (Acute) Hypertriglyceridemia (Acute) Past Medical History Medical History (Updated 04/24/20 @ 11:12 by Juanis Espana) Anemia Bifascicular block BPH (benign prostatic hyperplasia) Chronic venous insufficiency of lower extremity COVID-19 COVID-19 vaccine administered Elevated creatine kinase level Elevated liver enzymes Encounter for general adult medical examination with abnormal findings Essential hypertension History of developmental disability Hypertriglyceridemia Impaired fasting glucose Right fibular fracture Stasis dermatitis of both legs Swelling of right lower extremity Tubular adenoma of colon Urinary incontinence Family History Family History Father No problems noted. Mother No problems noted. Surgical History Surgical History (Updated 04/24/20 @ 11:12 by Juanis Espana) History of colonoscopy (~09/30/11) History of esophagogastroduodenoscopy (EGD) (~12/23/11) Hx of cystoscopy Social History Social History (Updated 03/19/20 @ 15:22 by Acacia Shields CMA) Household Members: Other Housing: Other Housing Other:: [facility] Are you a primary customer care representative to a significant other at home: No Do you presently have visiting nurse or other home services: Yes ([facility] staff) Alcohol intake: never Smoking Status: Never smoker Second Hand Smoke Exposure: No Use of substances other than those prescribed or required for medical reasons: No Have you been hit, kicked, punched, or otherwise hurt by someone within the past year? If so, by whom?: No Advance Directives Information Provided: No Recently lost weight without trying: No service: No Current occupational status: disabled Meds Allergies Allergy/AdvReac Type Severity Reaction Status Date / Time Penicillins Allergy Mild RASH Verified 04/30/20 10:04 poison jason extract Allergy Mild RASH Verified 04/30/20 10:04 [POISON JASON] poison sumac extract Allergy Mild RASH Verified 04/30/20 10:04 [POISON SUMAC] haloperidol [From Haldol] AdvReac Severe OVER Verified 04/30/20 10:04 SEDATION Home Medications Medication Instructions Recorded Confirmed Last Taken Type ammonium lactate 12 % topical cream 1 applic TOPICAL DAILY@0730 12/21/19 04/24/20 Unknown History citalopram 40 mg tablet 40 mg PO DAILY tab 12/21/19 04/24/20 Unknown History clozapine 100 mg tablet 200 mg PO BEDTIME tab 12/21/19 04/24/20 Unknown History divalproex 500 mg tablet,extended 2,000 mg PO BEDTIME 12/21/19 04/24/20 Unknown History release 24 hr lorazepam 1 mg tablet 1 mg PO BID tab 12/21/19 04/24/20 Unknown History metoprolol tartrate 25 mg tablet 12.5 mg PO BEDTIME tab 12/21/19 04/24/20 Un known History trazodone 100 mg tablet 100 mg PO BEDTIME tab 12/21/19 04/24/20 Unknown History acetaminophen 500 mg PO Q8H PRN 12/29/19 04/24/20 Unknown History ascorbic acid (vitamin C) [Vitamin 500 mg PO BID 12/29/19 04/24/20 Unknown History C] betamethasone dipropionate 1 applic TOPICAL BID PRN 12/29/19 04/24/20 Unknown History dextromethorphan-guaifenesin 10 ml PO Q4H PRN 12/29/19 03/19/20 Unknown History [Robafen DM Cough] magnesium hydroxide [Milk of 15 ml PO DAILY PRN 12/29/19 04/24/20 Unknown History Magnesia] sennosides [Senna Lax] 17.2 mg PO DAILY PRN 12/29/19 04/24/20 Unknown History therapeutic multivitamin 1 tab PO QAM 12/29/19 04/24/20 Unknown History trazodone 100 mg PO BEDTIME PRN 12/29/19 04/24/20 Unknown History Exam Exam Date and Time: April 27, 2020 0943 Height,Weight and Vital Signs: Height 6 ft Weight 112.945 kg Pertinent Lab Results Pertinent Lab Results: Laboratory Tests 02/22/20 02/22/20 07:40 07:40 WBC 7.1 Hgb 12.9 L D Hct 38.8 L D Plt Count 209 D Sodium 134 L Potassium 4.1 Chloride 96 Carbon Dioxide 29 BUN 8 L Creatinine 0.70 Narrative Narrative: EKG 12/2019 Normal sinus rhythm Left axis deviation Right bundle branch block Minimal voltage criteria for LVH, may be normal variant Abnormal ECG Heart rate has decreased Assessment and Plan Assessment Anesthesia Assessment: Chart Reviewed Documented by User: Fior Hannon 04/30/20 10:58 PMFSH Past Medical History Medical History (Updated 04/24/20 @ 11:12 by Juanis Espana) Anemia Bifascicular block BPH (benign prostatic hyperplasia) Chronic venous insufficiency of lower extremity COVID-19 COVID-19 vaccine administered Elevated creatine kinase level Elevated liver enzymes Encounter for general adult medical examination with abnormal findings Essential hypertension History of developmental disability Hypertriglyceridemia Impaired fasting glucose Right fibular fracture Stasis dermatitis of both legs Swelling of right lower extremity Tubular adenoma of colon Urinary incontinence Family History Family History Father No problems noted. Mother No problems noted. Surgical History Surgical History (Updated 04/24/20 @ 11:12 by Juanis Espana) History of colonoscopy (~09/30/11) History of esophagogastroduodenoscopy (EGD) (~12/23/11) Hx of cystoscopy Social History Social History (Updated 03/19/20 @ 15:22 by Acacia Shields CMA) Household Members: Other Housing: Other Housing Other:: [facility] Are you a primary customer care representative to a significant other at home: No Do you presently have visiting nurse or other home services: Yes ([facility] staff) Alcohol intake: never Smoking Status: Never smoker Second Hand Smoke Exposure: No Use of substances other than those prescribed or required for medical reasons: No Have you been hit, kicked, punched, or otherwise hurt by someone within the past year? If so, by whom?: No Advance Directives Information Provided: No Recently lost weight without trying: No service: No Current occupational status: disabled Meds Allergies Allergy/AdvReac Type Severity Reaction Status Date / Time Penicillins Allergy Mild RASH Verified 04/30/20 10:04 poison jason extract Allergy Mild RASH Verified 04/30/20 10:04 [POISON JASON] poison sumac extract Allergy Mild RASH Verified 04/30/20 10:04 [POISON SUMAC] haloperidol [From Haldol] AdvReac Severe OVER Verified 04/30/20 10:04 SEDATION Home Medications Medication Instructions Recorded Confirmed Last Taken Type ammonium lactate 12 % topical cream 1 applic TOPICAL DAILY@0730 12/21/19 04/24/20 Unknown History citalopram 40 mg tablet 40 mg PO DAILY tab 12/21/19 04/24/20 Unknown History clozapine 100 mg tablet 200 mg PO BEDTIME tab 12/21/19 04/24/20 Unknown History divalproex 500 mg tablet,extended 2,000 mg PO BEDTIME 12/21/19 04/24/20 Unknown History release 24 hr lorazepam 1 mg tablet 1 mg PO BID tab 12/21/19 04/24/20 Unknown History metoprolol tartrate 25 mg tablet 12.5 mg PO BEDTIME tab 12/21/19 04/24/20 U nknown History trazodone 100 mg tablet 100 mg PO BEDTIME tab 12/21/19 04/24/20 Unknown History acetaminophen 500 mg PO Q8H PRN 12/29/19 04/24/20 Unknown History ascorbic acid (vitamin C) [Vitamin 500 mg PO BID 12/29/19 04/24/20 Unknown History C] betamethasone dipropionate 1 applic TOPICAL BID PRN 12/29/19 04/24/20 Unknown History dextromethorphan-guaifenesin 10 ml PO Q4H PRN 12/29/19 03/19/20 Unknown History [Robafen DM Cough] magnesium hydroxide [Milk of 15 ml PO DAILY PRN 12/29/19 04/24/20 Unknown History Magnesia] sennosides [Senna Lax] 17.2 mg PO DAILY PRN 12/29/19 04/24/20 Unknown History therapeutic multivitamin 1 tab PO QAM 12/29/19 04/24/20 Unknown History trazodone 100 mg PO BEDTIME PRN 12/29/19 04/24/20 Unknown History Exam Airway Mallampati Class: II (Poor dentition missing multiple teeth) TM Dist: >3cm Neck ROM: Full Heart: RRR Lungs: CTAcBL Assessment and Plan Assessment Anesthesia Assessment: Anesthesia Plan Discussed and Chart Reviewed Final Anesthetic Review NPO: Yes (No meds) ASA Class: III Final Preanesthetic Review: No Changes in Pt Med Stat and Consent Obtained/Reviewed Patient Risk: Intermediate Procedure Risk: Intermediate Anesthetic Plan Anesthetic Plan: MAC: Disposition: Standard PACU
[2020-04-30 10:11] VITALS: BP 131/67; PULSE 87; RESP 18; TEMP 35.6; O2SAT 100
--- NOTE | 2020-04-30 10:39 | P.OP_ITS ---
Operative Note Operative Note Date of Service: 04/30/20 Narrative: Pre-op diagnosis: Colon cancer screening, history of colon polyps Post-op diagnosis: other (Colon polyps, hemorrhoids) Procedure: COLONOSCOPY TILL ILEOCECAL VALVE WITH BIOPSIES AND SNARE POLYPECTOMY Consent: Indications for the procedure and potential complications of bleeding, perforation, reaction to medications and missed diagnosis were discussed with the patient's brother (HCP) - Chidi Prieto and informed verbal consent was obtained. Instrument: Olympus CF H 190 L variable stiffness adult colonoscope Monitoring: Vital signs and clinical assessment, intermittent blood pressure monitoring, continuous EKG monitoring, Pulse oximetry and Carbon Dioxide monitoring were done throughout the procedure. Colon withdrawl time was 18 minutes. Procedure: The patient was placed in the left lateral decubitis position and pre-procedure medications were administered. After a digital rectal examination of the ano-rectum, the video colonoscope was inserted into the rectum and advanced through the colon to the ICV. The colonoscope was slowly withdrawn in a retrograde panoramic fashion and the colon mucosa was carefully examined including a retroflexed view of the rectum. Findings and interventions are described below. Procedure Difficulty: Colon was long and tortuous and there was recurrent loop formation. Patient was placed in the supine position and LLQ pressure was applied to intub ate the transverse colon. Cecum was partially visualized across the ICV and appeared normal Findings: Terminal Ileum: Not evaluated Cecum: Partially evaluated Ascending Colon: A 10 mm sessile polyp removed with a cold snare Transverse Colon: Normal Descending Colon: Normal Sigmoid Colon: A 4-5 mm sessile polyp removed with a cold biopsy. Rectum: Normal Ano-rectum: Moderate internal hemorrhoids Colon preparation: Good after some irrigation Impression and Post Procedure Diagnosis: Colonoscopy Findings: Two small to medium sized polyps removed Moderate hemorrhoids on retroflexed exam. Plan: Await pathology results Patient has an appointment on 05/16/20 in the [facility] with Estefania Matos FNP-BC. Repeat Colonoscopy interval based on path results - in 2 years since cecum was partially evaluated. Above findings were reviewed with the patient and colon polyps handout was given in the discharge area Surgeon: Gabby Sparks MD Anesthesia: MAC (Dr Rojo) Estimated blood loss (mL): 0 Pathology: none sent Condition: stable Disposition: PACU
--- NOTE | 2020-04-30 10:39 | MHC.SHP ---
Pre-Procedural Eval Section A The patient is an INPATIENT: No The History & Physical has been completed within 30 days and I have reviewed it.: No Section B Chief Complaint: Screening, Benign Neoplasm Details of Present Illness: Colon cancer screening, history of colon polyps Relevant Family History (Specify if Yes): No Relevant Social History: None Present Medications: see Short Stay Collaborative assessment Medical History: Significant History (Anemia Bifascicular block BPH (benign prostatic hyperplasia) Chronic venous insufficiency of lower extremity Elevated creatine kinase level Elevated liver enzymes Encounter for general adult medical examination with abnormal findings Essential hypertension Hypertriglyceridemia Impaired fasting gluco) History of Previous Operations: Relevant previous surgery/procedure and date(s) (History of colonoscopy (~09/30/11) History of esophagogastroduodenoscopy (EGD) (~12/23/11)) Allergies: Allergies Allergy/AdvReac Type Severity Reaction Status Date / Time Penicillins Allergy Mild RASH Verified 04/30/20 10:04 poison jason extract Allergy Mild RASH Verified 04/30/20 10:04 [POISON JASON] poison sumac extract Allergy Mild RASH Verified 04/30/20 10:04 [POISON SUMAC] haloperidol [From Haldol] AdvReac Severe OVER Verified 04/30/20 10:04 SEDATION Review of Systems Sugical H&P ROS: Negative: Cardiovascular, Respiratory and Gastrointestinal and Yes, Specify: Neurological (Mental retardation) Exam Surgical H&P Exam: Normal: Heart, Normal: Lungs and Normal: Abdomen and Significant Findings: Extremities (bilateral edema) Plan Diagnosis/Plan: Unchanged I have reviewed the history and physical and performed a pertinent physical examination on my patient. No changes have occurred unless specified.
[2020-04-30 11:53] VITALS: BP 104/69; PULSE 68; RESP 16; TEMP 36.4; O2SAT 97
[2020-04-30 12:08] VITALS: BP 131/78; PULSE 68; RESP 18; TEMP 36.4; O2SAT 99
== END 2020-04-30 12:41 | disposition home or self-care (01) ==
PROVIDERS: PCP Internal Medicine; Visit Provider Internal Medicine Gastroenterology
PROC: 0DJD8ZZ Inspection of Lower Intestinal Tract, Via Natural or Artificial Opening Endoscopic (ICD-10-PCS; CPT 45378; principal; 2020-04-30 10:50)
DX: Z12.11 Encounter for screening for malignant neoplasm of colon (principal); Z86.010 Personal history of colon polyps; D12.2 Benign neoplasm of ascending colon; K63.5 Polyp of colon; K64.8 Other hemorrhoids; I10 Essential (primary) hypertension; F89 Unspecified disorder of psychological development; R73.01 Impaired fasting glucose; Z86.16 Personal history of COVID-19; Z79.899 Other long term (current) drug therapy; Z88.0 Allergy status to penicillin; Z88.8 Allergy status to other drugs, medicaments and biological substances
CPT/HCPCS: 45385; 45380; 88305

== ENCOUNTER → 2020-05-16 14:01 | Outpatient (BNVA) | payer MEDICARE, MEDICAID, SELFPAY | PROVIDERS: PCP Internal Medicine; Visit Provider Nurse Practitioner Family | DX: Z13.89 Encounter for screening for other disorder (principal) | CPT/HCPCS: Q3014 ==

== ENCOUNTER 2020-06-07 07:42 | Outpatient (REF) | payer MEDICARE, MEDICAID, SELFPAY ==
[2020-06-07 12:00] LABS: Alanine Aminotransferase 20 U/L (0-40); Albumin Level 4.2 g/dL (3.5-5.0); Alkaline Phosphatase 57 U/L (39-117); Anion Gap 12 (12-20); Aspartate Amino Transferase 19 U/L (5-37); Bilirubin Total 0.4 mg/dL (0.0-1.0); Blood Urea Nitrogen 16 mg/dL (9-16); Calcium 9.4 mg/dL (8.4-10.2); Carbon Dioxide 31 mmol/L (22-29); Chloride 97 mmol/L (96-108); Cholesterol 146 mg/dL; Estimated Glomerular Filt Rate > 60; Glucose Fasting 103 mg/dL (60-99); HDL Cholesterol 51 mg/dL; LDL Cholesterol Calculated 78 mg/dl; Potassium 4.3 mmol/L (3.3-5.1); Sodium 136 mmol/L (135-145); Total Protein 6.8 g/dL (6.5-8.0); Triglycerides 88 mg/dL
[2020-06-07 12:08] LABS: Estimated Average Glucose 120 mg/dL; Hemoglobin A1c % 5.8 %
[2020-06-07 12:21] LABS: Thyroid Stimulating Hormone 2.64 uIU/mL (0.32-4.0)
[2020-06-08 05:51] LABS: Prolactin 8.5 ng/mL (2.0-18.0)
[2020-06-08 13:57] LABS: CRP High Sensitivity 0.7 mg/L
== END 2020-06-07 07:43 | disposition home or self-care (01) ==
LOC: HO.HMGCLDS 07:42
PROVIDERS: Absent Provider Psychiatry & Neurology Child & Adolescent Psychiatry; PCP Internal Medicine; Visit Provider Internal Medicine
DX: F25.0 Schizoaffective disorder, bipolar type (principal); Z79.899 Other long term (current) drug therapy
CPT/HCPCS: 36415; 80053; 80061; 83036; 84146; 84443; 84484; 86141

== ENCOUNTER → 2020-07-12 08:57 | Outpatient (BNVA) | payer MEDICARE, MEDICAID, SELFPAY | PROVIDERS: PCP Internal Medicine; Visit Provider Urology | DX: N40.1 Benign prostatic hyperplasia with lower urinary tract symptoms (principal); N13.8 Other obstructive and reflux uropathy; R32 Unspecified urinary incontinence | CPT/HCPCS: 99212 ==

== ENCOUNTER 2020-11-24 10:27 | Outpatient (REF) | payer MEDICARE, MEDICAID, SELFPAY ==
[2020-11-24 11:20] LABS: Appearance Urine CLEAR; Color Urine YELLOW; Glucose Urine UA NEG (NEG); Leukocyte Esterase Urine NEG (NEG); Nitrite Urine NEG (NEG); PH 7.5 (5.0-8.0); Urine Blood NEG (NEG); Urine Ketones NEG (NEG); Urine Protein NEG (NEG-TRACE)
== END 2020-11-24 10:28 | disposition home or self-care (01) ==
LOC: HO.HMGCLNP 10:27
PROVIDERS: Visit Provider Internal Medicine
DX: R30.0 Dysuria (principal); R32 Unspecified urinary incontinence
CPT/HCPCS: 81003

== ENCOUNTER → 2020-12-19 13:08 | Outpatient (BNVA) | payer MEDICARE, MEDICAID, SELFPAY | PROVIDERS: PCP Internal Medicine; Referring Provider Internal Medicine; Visit Provider Internal Medicine Cardiovascular Disease | DX: I45.2 Bifascicular block (principal); I10 Essential (primary) hypertension | CPT/HCPCS: 93005; 99212 ==

== ENCOUNTER → 2021-01-01 14:24 | Outpatient (BNVA) | payer MEDICARE, MEDICAID, SELFPAY | PROVIDERS: PCP Internal Medicine; Visit Provider Urology | DX: N40.1 Benign prostatic hyperplasia with lower urinary tract symptoms (principal); N13.8 Other obstructive and reflux uropathy; R35.0 Frequency of micturition | CPT/HCPCS: Q3014 ==

== ENCOUNTER → 2021-03-12 12:41 | Outpatient (BNVA) | payer MEDICARE, MEDICAID, SELFPAY | PROVIDERS: PCP Internal Medicine; Visit Provider Urology | DX: Z13.89 Encounter for screening for other disorder (principal) | CPT/HCPCS: Q3014 ==

== ENCOUNTER → 2021-09-05 08:28 | Outpatient (BNVA) | payer MEDICARE, MEDICAID, SELFPAY | PROVIDERS: PCP Internal Medicine; Visit Provider Urology | DX: N32.81 Overactive bladder (principal); N40.1 Benign prostatic hyperplasia with lower urinary tract symptoms; N13.8 Other obstructive and reflux uropathy; R35.0 Frequency of micturition; Z79.899 Other long term (current) drug therapy | CPT/HCPCS: Q3014 ==

== ENCOUNTER → 2021-12-19 13:39 | Outpatient (BNVA) | payer MEDICARE, MEDICAID, SELFPAY | PROVIDERS: PCP Internal Medicine; Visit Provider Internal Medicine Cardiovascular Disease | DX: I45.2 Bifascicular block (principal) | CPT/HCPCS: 99212 ==

== ENCOUNTER 2022-02-13 07:55 | Outpatient (REF) | payer MEDICARE, MEDICAID, SELFPAY ==
[2022-02-13 11:20] LABS: MANUAL DIFF FLAG NO
[2022-02-13 11:45] LABS: Basophils Percent Auto 0.6 % (0-2); Eosinophils Absolute Auto 0.2 X10*3/uL (0.0-0.4); Eosinophils Percent Auto 4.2 % (0-4); Hematocrit 37.9 % (42.0-52.0); Hemoglobin 12.8 g/dl (14.0-18.0); Imm Gran Abs Auto 0.01 X10*3/uL (0.00-0.03); Imm Gran Pct Auto 0.2 % (0.0-0.4); Lymphocytes Absolute Auto 2.1 X10*3/uL (1.2-4.9); Lymphocytes Percent Auto 37.8 % (20-40); Mean Corpuscular HGB Conc 33.8 g/dl (31.0-36.0); Mean Corpuscular Hemoglobin 30.5 pg (27.0-33.0); Mean Corpuscular Volume 90.5 fL (80.0-98.0); Mean Platelet Volume 10.8 fL (9.4-12.4); Monocytes Absolute Auto 0.6 X10*3/uL (0.1-1.2); Monocytes Percent Auto 10.7 % (2-11); Neutrophils Absolute Auto 2.5 x10*3/uL (2.0-8.3); Neutrophils Percent Auto 46.5 % (45-73); Platelet Count 197 X10*3/uL (160-400); Red Blood Count 4.19 X10*6/uL (4.60-5.80); Red Cell Distribution Width 13.2 % (11.0-16.0); White Blood Count 5.4 X10*3/uL (4.8-10.8)
[2022-02-13 13:05] LABS: Alanine Aminotransferase 26 U/L (0-40); Anion Gap 13 (12-20); Aspartate Amino Transferase 23 U/L (5-37); Blood Urea Nitrogen 10 mg/dL (9-16); Calcium 9.9 mg/dL (8.4-10.2); Carbon Dioxide 28 mmol/L (22-29); Chloride 99 mmol/L (96-108); Cholesterol 148 mg/dL; Estimated Glomerular Filt Rate > 60; Glucose Fasting 106 mg/dL (60-99); HDL Cholesterol 51 mg/dL; Iron 85 mcg/dL (45-160); LDL Cholesterol Calculated 75 mg/dl; Percent Iron Saturation 22 % (15-50); Potassium 4.2 mmol/L (3.3-5.1); Sodium 136 mmol/L (135-145); Total Iron Binding Capacity 389 mcg/dL (228-428); Triglycerides 112 mg/dL; Unsaturated Iron Binding 304 ug/dL
[2022-02-13 13:26] LABS: Prostate Specific Antigen 0.32 ng/mL (<0.05-4.0)
== END 2022-02-13 07:56 | disposition home or self-care (01) ==
LOC: HO.HMGCLDS 07:55
PROVIDERS: Absent Provider Urology; PCP Internal Medicine; Visit Provider Internal Medicine
DX: Z12.5 Encounter for screening for malignant neoplasm of prostate (principal); N13.8 Other obstructive and reflux uropathy; N40.1 Benign prostatic hyperplasia with lower urinary tract symptoms; D50.9 Iron deficiency anemia, unspecified; I10 Essential (primary) hypertension; R73.01 Impaired fasting glucose
CPT/HCPCS: 36415; 80048; 80061; 83540; 84153; 84450; 84460; 85025

== ENCOUNTER 2022-02-21 10:53 | Outpatient (AMB) | payer MEDICARE, MEDICAID, SELFPAY ==
--- NOTE | 2022-02-21 11:28 | MHC.PC.OV ---
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: Present Accompanied by: Finn (prison staff) Allergies Penicillins Allergy (Mild, Verified 04/13/24 16:13) RASH haloperidol [From Haldol] Adverse Reaction (Severe, Verified 04/13/24 16:13) OVER SEDATION Medication List - Last Reconciled 04/13/24 by Pauline Valladares MD acetaminophen 500 mg PO Q8H PRN ammonium lactate 12% 1 appl topical BID PRN 24 days ascorbic acid (vitamin C) (Vitamin C) 500 mg PO BID betamethasone, augmented 0.05 % (Diprolene (augmented)) 1 appl topical DAILY PRN 10 days cholecalciferol (vitamin D3) 25 mcg PO DAILY citalopram 40 mg PO DAILY clozapine 100 mg PO BID divalproex ER 1,000 mg PO BID ferrous fumarate 324 mg PO DAILY lactase (Lactaid) 3,000 units PO TID PRN loperamide (Imodium A-D) 2 mg PO Q8H PRN lorazepam 1 mg PO BID magnesium hydroxide (Milk of Magnesia) 15 mL PO DAILY PRN metoprolol tartrate 12.5 mg (1/2 x 25 mg) PO BEDTIME omega 1-fut-iwq-fish oil 1,200 (144-216) mg (Fish Oil) 2 caps PO QPM terazosin 10 mg PO BEDTIME 90 days therapeutic multivitamin 1 tab PO QAM trazodone 100 mg PO BEDTIME PRN vibegron 75 mg PO DAILY 90 days Tobacco use date assessed: 02/21/22 HPI annual PE HPI Details 56 year old male year-old male with history of schizophrenia, developmental disability, currently followed by psychiatry, has normocytic normochromic anemia, has chronic venous insufficiency of lower extremity, impaired fasting glucose, history of adenomatous polyp in colon, hypertension, hypertriglyceridemia history of detrusor instability of bladder, here today for physical exam. He is accompanied by his critical care specialist, from whom most of the history is obtained due to patient being a poor historian He had a screening colonoscopy done in [address] Bridger with removal of hyperplastic polyp and tubular adenoma, to be repeated in 2 years. Patient however refuses to have it done and does not want to do Cologuard testing. bifascular block. He was recently seen by Cardiology, and ECG showed presence of bifascicular block. Patient denies SOB and CP. He is not active and stays at home and does not do much activities. He has chronic lower extremity edema due to venous insufficiency. [facility] Medical History (Updated 04/13/24 @ 16:21 by Pauline Valladares MD) Stasis dermatitis of right lower extremity due to peripheral venous hypertension Unsteady gait Normocytic normochromic anemia Right leg swelling Disability, developmental History of developmental disability COVID-19 vaccine administered COVID-19 Right fibular fracture Urinary incontinence Stasis dermatitis of both legs Chronic venous insufficiency of lower extremity Impaired fasting glucose Tubular adenoma of colon Essential hypertension Hypertriglyceridemia BPH (benign prostatic hyperplasia) Surgical History (Updated 04/13/24 @ 16:22 by Pauline Valladares MD) Hx of cystoscopy History of esophagogastroduodenoscopy (EGD) (~12/23/11) History of colonoscopy (~09/30/11) Family History Father No problems noted. Mother No problems noted. Social History Household Members: Other Housing: Assisted Living Facility Housing Other:: prison Are you a primary critical care specialist to a significant other at home: No Do you presently have visiting nurse or other home services: Yes (prison staff) Alcohol intake: never Patient Tobacco Use Status: Never used Tobacco e-Cigarette/Vaping Use: Never Used Second Hand Smoke Exposure: No service: No Current occupational status: disabled Cognitive needs: Yes Hearing needs: No Vision needs: No Questionnaire Thrive Questionnaire Date Thrive assessed: 11/29/20 Review of Systems Const Reports as per HPI Eyes Reports no additional complaints ENT Reports no additional complaints Card Denies chest pain and Denies dyspnea Resp Denies cough and Denies dyspnea GI Denies abdominal pain, Denies nausea and Denies vomiting Reports no additional complaints Musc Reports no additional complaints Skin/Breast Denies rash Neuro Reports no additional complaints Psych Reports no additional complaints Endo Reports no additional complaints Aller/Immun Reports no additional complaints Physical exam (Primary Care) Vital Signs: Last Vital Signs Pulse 102 H 02/21/22 11:29 BP 100/60 02/21/22 11:29 Pulse Ox 98 02/21/22 11:29 Oxygen Delivery Method Room Air 02/21/22 11:29 BMI result Body Mass Index 35.5 BMI Assessment/Plan discussion: High BMI High, discussed plan: lifestyle, weight reduction, dietary and physical activity Tobacco/Smoking Status: Tobacco use Status Tobacco use date assessed 02/21/22 02/21/22 11:36 Patient Tobacco Use Status Never used Tobacco 02/21/22 11:29 e-Cigarette/Vaping Use Never Used 02/21/22 11:29 Thrive Assessment: Date of Thrive Assessment Date Thrive assessed 11/29/20 02/21/22 11:29 Const Other: Agitated, walks with a stiff unsteady gait General: awake Nutritional Appearance: obese HENMT Other: Normocephalic , atraumatic Face and sinus: Yes face symmetric Mouth: Normal oral and palatal mucosa present and moist mucous membranes Eyes General: appearance normal, both eyes and all related structures Conjunctivae: conjunctivae normal Sclerae: sclerae normal Neck Other: Supple, no lymphadenopathy Resp Effort & Inspection: normal respiratory effort and able to speak in complete sentences Auscultation: clear to auscultation bilaterally Cardio Other: S1-S2 present regular in rhythm GI Other: Obese, firm, normal bowel sounds nontender, no mass palpated Other: Refused exam General: Yes no CVA tenderness Back/Spine/Pelvis Back: no CVA tenderness Skin Other: Diffuse erythema on lower half of right lower leg with tight skin noted Extrem Other: Patient refusing to have foot examined Psych Appearance: disheveled Speech and movement: Echolalia present (Psych) and Psychomotor agitation in speech present Affect: Irritable affect present Results Reviewed Results Reviewed: ENTERED: 02/13/22-0800 PIPER SWANSON: ORDERED: CBC Auto Diff Test Result Flag Reference Site WBC 5.4 4.8-10.8 X10*3/uL RBC 4.19 L 4.60-5.80 X10*6/uL HGB 12.8 L 14.0-18.0 g/dl HCT 37.9 L 42.0-52.0 % MCV 90.5 80.0-98.0 fL MCH 30.5 27.0-33.0 pg MCHC 33.8 31.0-36.0 g/dl RDW 13.2 11.0-16.0 % PLT 197 160-400 X10*3/uL ENTERED: 02/13/22-[address] [facility] [address]: Pauline Valladares MD ORDERED: Met Prof Fast, IRON PROF, AST, ALT, Lipid Panel, PSA Test Result Flag Reference Site Sodium 136 135-145 mmol/L Potassium 4.2 3.3-5.1 mmol/L CL 99 96-108 mmol/L CO2 28 22-29 mmol/L Gap 13 12-20 BUN 10 9-16 mg/dL Creat 0.73 0.5-1.4 mg/dL EGFR > 60 NOTE: For -[place] individuals, multiply the result by 1.210. Chronic Kidney Disease: Estimated GFR < 60 mL/min/1.73m2 Severe Kidney Disease: Estimated GFR < 15 mL/min/1.73m2 FBS 106 H 60-99 mg/dL A fasting glucose from 100-125 mg/dl is considered impaired (pre-diabetes). CA 9.9 8.4-10.2 mg/dL Iron 85 45-160 mcg/dL TIBC 389 228-428 mcg/dL Saturation 22 15-50 % UIBC 304 ug/dL AST (GOT) 23 5-37 U/L ALT (GPT) 26 0-40 U/L Triglyceride 112 mg/dL Desirable Triglyceride: less than 150 mg/dL Borderline High Triglyceride 150-199 mg/dL High Triglyceride: 200-499 mg/dL Very High Triglyceride: greater than or equal to 5OO mg/dL Chol 148 mg/dL Desirable Cholesterol: less than 200 mg/dL Borderline High Cholesterol: 200-239 mg/dL High Cholesterol: greater than 239 mg/dL LDL Calculated 75 mg/dl Desirable LDL: less than 100 mg/dL Near Optimal/Above Optimal LDL: 110-129 mg/dL Borderline High LDL: 130-159 mg/dL High LDL: 160-189 mg/dL Very High LDL: greater than or equal to 190 mg/dL HDL 51 mg/dL Desirable HDL: greater than 40 mg/dL Note: This HDL assay may give artificially low results in patients with liver disease. PSA 0.32 <0.05-4.0 ng/mL PSA methodology: Trippy Chemiluminescent Microparticle Immunoassay Coding Level of Care Code Est Pt Prev Care 40-64y(95692) Diagnoses Iron deficiency anemia, unspecified iron deficiency anemia type D50.9 Anemia type: iron deficiency Iron deficiency anemia type: unspecified iron deficiency Impaired fasting glucose R73.01 Tubular adenoma of colon D12.6 Essential hypertension I10 Hypertriglyceridemia E78.1 Schizophrenia, unspecified type F20.9 Schizophrenia type: unspecified BPH w urinary obs/LUTS N40.1; N13.8 Disability, developmental F89 Bifascicular block I45.2 Annual visit for general adult medical examination with abnormal findings Z00.01 Chronic venous insufficiency of lower extremity I87.2
[2022-02-21 11:29] VITALS: BP 100/60; PULSE 102; O2SAT 98; BMI 35.5
== END 2022-02-21 12:00 | disposition home or self-care (01) ==
LOC: HO.HMGC 10:53
PROVIDERS: PCP Internal Medicine; Visit Provider Internal Medicine
DX: D50.9 Iron deficiency anemia, unspecified (principal); R73.01 Impaired fasting glucose; D12.6 Benign neoplasm of colon, unspecified; I10 Essential (primary) hypertension; E78.1 Pure hyperglyceridemia; F20.9 Schizophrenia, unspecified; N40.1 Benign prostatic hyperplasia with lower urinary tract symptoms; N13.8 Other obstructive and reflux uropathy; F89 Unspecified disorder of psychological development; I45.2 Bifascicular block; Z00.01 Encounter for general adult medical examination with abnormal findings; I87.2 Venous insufficiency (chronic) (peripheral)
CPT/HCPCS: 99499

== ENCOUNTER → 2022-06-26 10:27 | Outpatient (BNVA) | payer MEDICARE, MEDICAID, SELFPAY | PROVIDERS: PCP Internal Medicine; Visit Provider Urology | DX: N40.1 Benign prostatic hyperplasia with lower urinary tract symptoms (principal); N13.8 Other obstructive and reflux uropathy; N32.81 Overactive bladder | CPT/HCPCS: 99212 ==

== ENCOUNTER 2022-07-18 07:50 | Outpatient (REF) | payer MEDICARE, MEDICAID, SELFPAY ==
[2022-07-18 11:49] LABS: MANUAL DIFF FLAG NO
[2022-07-18 12:01] LABS: Basophils Percent Auto 0.7 % (0-2); Eosinophils Absolute Auto 0.3 X10*3/uL (0.0-0.4); Eosinophils Percent Auto 5.3 % (0-4); Hematocrit 37.2 % (42.0-52.0); Hemoglobin 12.5 g/dl (14.0-18.0); Imm Gran Abs Auto 0.02 X10*3/uL (0.00-0.03); Imm Gran Pct Auto 0.4 % (0.0-0.4); Lymphocytes Absolute Auto 2.1 X10*3/uL (1.2-4.9); Lymphocytes Percent Auto 37.9 % (20-40); Mean Corpuscular HGB Conc 33.6 g/dl (31.0-36.0); Mean Corpuscular Hemoglobin 30.7 pg (27.0-33.0); Mean Corpuscular Volume 91.4 fL (80.0-98.0); Mean Platelet Volume 10.7 fL (9.4-12.4); Monocytes Absolute Auto 0.5 X10*3/uL (0.1-1.2); Monocytes Percent Auto 9.2 % (2-11); Neutrophils Absolute Auto 2.6 x10*3/uL (2.0-8.3); Neutrophils Percent Auto 46.5 % (45-73); Platelet Count 190 X10*3/uL (160-400); Red Blood Count 4.07 X10*6/uL (4.60-5.80); Red Cell Distribution Width 13.5 % (11.0-16.0); White Blood Count 5.5 X10*3/uL (4.8-10.8)
[2022-07-18 12:31] LABS: Alanine Aminotransferase 16 U/L (0-40); Anion Gap 13 (12-20); Aspartate Amino Transferase 17 U/L (5-37); Blood Urea Nitrogen 11 mg/dL (9-16); Calcium 10.1 mg/dL (8.4-10.2); Carbon Dioxide 31 mmol/L (22-29); Chloride 101 mmol/L (96-108); Cholesterol 158 mg/dL; Estimated Glomerular Filt Rate > 60; Glucose Fasting 112 mg/dL (60-99); HDL Cholesterol 47 mg/dL; Iron 89 mcg/dL (45-160); LDL Cholesterol Calculated 87 mg/dl; Percent Iron Saturation 27 % (15-50); Potassium 4.5 mmol/L (3.3-5.1); Sodium 140 mmol/L (135-145); Total Iron Binding Capacity 327 mcg/dL (228-428); Triglycerides 121 mg/dL; Unsaturated Iron Binding 238 ug/dL
== END 2022-07-18 07:51 | disposition home or self-care (01) ==
LOC: HO.HMGCLDS 07:50
PROVIDERS: PCP Internal Medicine; Visit Provider Internal Medicine
DX: D12.6 Benign neoplasm of colon, unspecified (principal); D50.9 Iron deficiency anemia, unspecified; E78.1 Pure hyperglyceridemia; F20.9 Schizophrenia, unspecified; I10 Essential (primary) hypertension; R73.01 Impaired fasting glucose
CPT/HCPCS: 36415; 80048; 80061; 83540; 84450; 84460; 85025

== ENCOUNTER 2022-08-22 10:50 | Outpatient (AMB) | payer MEDICARE, MEDICAID, SELFPAY ==
--- NOTE | 2022-08-22 11:36 | A.OFFPC_ITS ---
<Statement entered by Pauline Valladares MD - 04/03/25 00:09> This note has been administratively?closed. Vital Signs 08/22/22 11:41 Height 6 ft Weight 265 lb BMI 35.9 BP 112/62 Blood Pressure Location Lt brachial Position Sitting Pulse 91 Pulse Source Pulse Oximeter Pulse Oximetry (%) 95 Oxygen Delivery Method Room Air Intake Visit Reasons: 6 Month follow up after labs Intake Note: Pt is here today for his 6 mo. f/u labs Allergies Penicillins Allergy (Mild, Verified 12/12/24 15:29) RASH haloperidol (From Haldol) Adverse Reaction (Severe, Verified 12/12/24 15:29) OVER SEDATION Medication List - Last Reconciled 08/22/22 by Pauline Valladares MD acetaminophen 500 mg PO Q8H PRN ammonium lactate 5% 1 appl topical DAILY ammonium lactate 12% 1 appl topical BID PRN 24 days ascorbic acid (vitamin C) (Vitamin C) 500 mg PO BID betamethasone, augmented 0.05 % (Diprolene (augmented)) 1 appl topical DAILY PRN cholecalciferol (vitamin D3) 25 mcg PO DAILY citalopram 40 mg PO DAILY clozapine 100 mg PO BID divalproex ER 1,000 mg PO BID ferrous fumarate 324 mg PO DAILY lactase (Lactaid) 3,000 units PO TID PRN loperamide (Imodium A-D) 2 mg PO Q8H PRN lorazepam 1 mg PO BID magnesium hydroxide (Milk of Magnesia) 15 mL PO DAILY PRN metoprolol tartrate 12.5 mg (1/2 x 25 mg) PO BEDTIME mirabegron ER (Myrbetriq) 25 mg PO DAILY 90 days omega 2-dny-cej-fish oil 1,200 (144-216) mg (Fish Oil) 2 caps PO QPM terazosin 10 mg PO BEDTIME 90 days therapeutic multivitamin 1 tab PO QAM trazodone 100 mg PO BEDTIME PRN Tobacco use date assessed: 08/22/22 [facility] Medical History Stasis dermatitis of right lower extremity due to peripheral venous hypertension Unsteady gait Normocytic normochromic anemia Right leg swelling Disability, developmental History of developmental disability COVID-19 vaccine administered COVID-19 Right fibular fracture Urinary incontinence Stasis dermatitis of both legs Chronic venous insufficiency of lower extremity Impaired fasting glucose Tubular adenoma of colon Essential hypertension Hypertriglyceridemia BPH (benign prostatic hyperplasia) Surgical History Hx of cystoscopy History of esophagogastroduodenoscopy (EGD) (~12/23/11) History of colonoscopy (~09/30/11) Family History Father No problems noted. Mother No problems noted. Social History Household Members: Other Housing: Assisted Living Facility Housing Other:: shelter Are you a primary life care planner to a significant other at home: No Do you presently have visiting nurse or other home services: Yes (shelter staff) Alcohol intake: never Patient Tobacco Use Status: Never used Tobacco e-Cigarette/Vaping Use: Never Used Second Hand Smoke Exposure: No service: No Current occupational status: disabled Cognitive needs: Yes Hearing needs: No Vision needs: No Questionnaire Thrive Questionnaire Date Thrive assessed: 11/29/20 Physical exam (Primary Care) Vital Signs: Last Vital Signs Pulse 91 08/22/22 11:41 BP 112/62 08/22/22 11:41 Pulse Ox 95 08/22/22 11:41 Oxygen Delivery Method Room Air 08/22/22 11:41 BMI result Body Mass Index 35.9 Tobacco/Smoking Status: Tobacco use Status Tobacco use date assessed 08/22/22 08/22/22 11:37 Patient Tobacco Use Status Never used Tobacco 08/22/22 11:37 e-Cigarette/Vaping Use Never Used 08/22/22 11:37 Thrive Assessment: Date of Thrive Assessment Date Thrive assessed 11/29/20 08/22/22 11:37 Results Reviewed Results Reviewed: Laboratory Tests 07/18/22 08:00 WBC 5.5 Hgb 12.5 L Hct 37.2 L MCV 91.4 MCH 30.7 RDW 13.5 Plt Count 190 ENTERED: 07/18/22-[address]: ORDERED: Met Prof Fast, IRON PROF, AST, ALT, Lipid Panel Test Result Flag Reference Site Sodium 140 135-145 mmol/L Potassium 4.5 3.3-5.1 mmol/L CL 101 96-108 mmol/L CO2 31 H 22-29 mmol/L Gap 13 12-20 BUN 11 9-16 mg/dL Creat 0.79 0.5-1.4 mg/dL EGFR > 60 NOTE: For -[place] individuals, multiply the result by 1.210. Chronic Kidney Disease: Estimated GFR < 60 mL/min/1.73m2 Severe Kidney Disease: Estimated GFR < 15 mL/min/1.73m2 FBS 112 H 60-99 mg/dL A fasting glucose from 100-125 mg/dl is considered impaired (pre-diabetes). CA 10.1 8.4-10.2 mg/dL Iron 89 45-160 mcg/dL TIBC 327 228-428 mcg/dL Saturation 27 15-50 % UIBC 238 ug/dL AST (GOT) 17 5-37 U/L ALT (GPT) 16 0-40 U/L Triglyceride 121 mg/dL Desirable Triglyceride: less than 150 mg/dL Borderline High Triglyceride 150-199 mg/dL High Triglyceride: 200-499 mg/dL Very High Triglyceride: greater than or equal to 5OO mg/dL Chol 158 mg/dL Desirable Cholesterol: less than 200 mg/dL Borderline High Cholesterol: 200-239 mg/dL High Cholesterol: greater than 239 mg/dL LDL Calculated 87 mg/dl Desirable LDL: less than 100 mg/dL Near Optimal/Above Optimal LDL: 110-129 mg/dL Borderline High LDL: 130-159 mg/dL High LDL: 160-189 mg/dL Very High LDL: greater than or equal to 190 mg/dL HDL 47 mg/dL Desirable HDL: greater than 40 mg/dL Note: This HDL assay may give artificially low results in patients with liver disease. Coding Level of Care Code Admin Sign Off/No Billing Diagnoses Normocytic normochromic anemia D64.9 Impaired fasting glucose R73.01 Essential hypertension I10 Hypertriglyceridemia E78.1
[2022-08-22 11:41] VITALS: BP 112/62; PULSE 91; O2SAT 95; BMI 35.9
== END 2022-08-22 12:20 | disposition home or self-care (01) ==
PROVIDERS: Visit Provider Internal Medicine
DX: D64.9 Anemia, unspecified (principal); R73.01 Impaired fasting glucose; I10 Essential (primary) hypertension; E78.1 Pure hyperglyceridemia
CPT/HCPCS: 99499

== ENCOUNTER 2022-12-26 09:54 | Outpatient (AMB) | payer MEDICARE, MEDICAID, SELFPAY ==
--- NOTE | 2022-12-26 09:54 | MHC.OFFVIS ---
Intake Intake Visit Reasons: 6m follow up Intake Note: Patient is Present for Telephone Follow Up Urology Med: Myrbetriq, Terazosin Antibiotic Allergy: Penicillins Blood Thinner: None [facility] Allergies Penicillins Allergy (Mild, Verified 12/26/22 09:56) RASH haloperidol [From Haldol] Adverse Reaction (Severe, Verified 12/26/22 09:56) OVER SEDATION Medication List - Last Reconciled 12/26/22 by Kirk Barrera MD acetaminophen 500 mg PO Q8H PRN ammonium lactate 5% 1 appl topical DAILY ammonium lactate 12% 1 appl topical BID PRN 24 days ascorbic acid (vitamin C) (Vitamin C) 500 mg PO BID betamethasone, augmented 0.05 % (Diprolene (augmented)) 1 appl topical DAILY PRN 10 days cholecalciferol (vitamin D3) 25 mcg PO DAILY citalopram 40 mg PO DAILY clozapine 100 mg PO BID divalproex ER 1,000 mg PO BID ferrous fumarate 324 mg PO DAILY lactase (Lactaid) 3,000 units PO TID PRN loperamide (Imodium A-D) 2 mg PO Q8H PRN lorazepam 1 mg PO BID magnesium hydroxide (Milk of Magnesia) 15 mL PO DAILY PRN metoprolol tartrate 12.5 mg (1/2 x 25 mg) PO BEDTIME mirabegron ER (Myrbetriq) 25 mg PO DAILY 90 days omega 0-zza-mjd-fish oil 1,200 (144-216) mg (Fish Oil) 2 caps PO QPM terazosin 10 mg PO BEDTIME 90 days therapeutic multivitamin 1 tab PO QAM trazodone 100 mg PO BEDTIME PRN HPI HPI Comments History of Present Illness Details Spencer is a pleasant male. He is a patient of Dr. Valladares. Resident of a retirement. Accompanied by caregiver. He is seen for the following urologic issue - Lower Urinary Tract Symptoms - weak stream Telemedicine Evaluation 15 min Consultation Doximity Rafael Video attempted Discussed with regional sales manager of his retirement Continue adequate urinary control Minimal urinary accidents Nocturia 2-3 Will continue combination Terazosin and Myrbetriq Does have occasional accidents at day program Recommend timed voiding Q 3 hour particularly during the day at day program - this would require day program to place him on toilet for 2 minutes every 3 hours Lower urinary tract symptoms Longstanding Secondary to psychiatric medications side effects Current medications - terazosin and Myrbetriq Prior medications Flomax and Detrol LA Good effect with minimal accidents PSA 07/19 0.3, 02/21 0.3 PFSH Medical History (Updated 08/22/22 @ 12:19 by Pauline Valladares MD) Normocytic normochromic anemia Right leg swelling Disability, developmental History of developmental disability COVID-19 vaccine administered COVID-19 Anemia Right fibular fracture Urinary incontinence Stasis dermatitis of both legs Chronic venous insufficiency of lower extremity Impaired fasting glucose Tubular adenoma of colon Essential hypertension Hypertriglyceridemia BPH (benign prostatic hyperplasia) Surgical History Hx of cystoscopy History of esophagogastroduodenoscopy (EGD) (~12/23/11) History of colonoscopy (~09/30/11) Family History Father No problems noted. Mother No problems noted. Social History Household Members: Other Housing: Assisted Living Facility Housing Other:: retirement Are you a primary day care supervisor to a significant other at home: No Do you presently have visiting nurse or other home services: Yes (retirement staff) Alcohol intake: never Patient Tobacco Use Status: Never used Tobacco e-Cigarette/Vaping Use: Never Used Second Hand Smoke Exposure: No service: No Current occupational status: disabled Cognitive needs: Yes Hearing needs: No Vision needs: No Review of Systems Const All systems reviewed & are unremarkable except as noted in HPI and below Reports no additional complaints Resp Reports no additional complaints GI Reports no additional complaints Reports as per HPI Musc Reports no additional complaints Physical Exam Telemedicine evaluation Appropriate responses Regular breathing rate and rhythm HEENT Head: Yes normal to inspection Ears: hearing grossly normal bilaterally Eyes General: appearance normal, both eyes and all related structures Neck Neck: Yes normal visual inspection Chest Chest palpation & inspection: normal inspection of the chest Resp Effort & Inspection: normal respiratory effort and able to speak in complete sentences Assessment & Plan Assessment & Plan (1) Overactive bladder: Code(s): N32.81 - Overactive bladder (2) BPH w urinary obs/LUTS: Code(s): N40.1 - Benign prostatic hyperplasia with lower urinary tract symptoms; N13.8 - Other obstructive and reflux uropathy Plan Six month follow-up Medications: Refilled mirabegron ER (Myrbetriq) 25 mg PO DAILY 90 days 90 tabs 1RF N32.81 - Overactive bladder, R35.0 - Frequency of micturition, R39.15 - Urgency of urination terazosin 10 mg PO BEDTIME 90 days 90 caps 1RF N13.8 - Other obstructive and reflux uropathy, N40.1 - Benign prostatic hyperplasia with lower urinary tract symptoms, R35.0 - Frequency of micturition Patient Instructions: Imaging studies, laboratory and physical exam results were discussed and reviewed in detail. No major barriers to patient understanding were identified. An opportunity to ask questions regarding the treatment plan was provided. All questions were answered. The patient expressed understanding and agreement with the above treatment plan. The patient is aware they should contact our office by phone for worsening of their current condition or the appearance of new urologic symptoms. Compliance is encouraged with any medications and followup testing that is ordered. It is a privilege to participate in the urologic care of your patient. If you have any questions or concerns regarding treatment for the above conditions, or other urologic issues, please do not hesitate to contact me. The office telephone contact is [phone]. This note is constructed using voice recognition software. While every effort has been made to ensure accuracy real estate marketing coordinator errors may have been included. Yours sincerely, Dr Kirk Barrera MD, [facility] - Urology Providers of Expert, Compassionate Care for the Genitourinary System Telehealth Telehealth Location of provider rendering services: practice address Location of patient: address on file Patient Identification confirmed using: Name, : Yes Telehealth method: video Patient verbally consented to treatment: Yes Patient verbally consented to billing insurance company: Yes Patient informed of any privacy concerns related to visit: Yes Coding Level of Care Code Tele Est Pt Level 3 (19277) Diagnoses Overactive bladder N32.81 BPH w urinary obs/LUTS N40.1; N13.8
== END 2022-12-26 10:37 | disposition home or self-care (01) ==
LOC: HO.HUSH 09:54
PROVIDERS: PCP Internal Medicine; Visit Provider Urology
DX: N32.81 Overactive bladder (principal); N40.1 Benign prostatic hyperplasia with lower urinary tract symptoms; N13.8 Other obstructive and reflux uropathy
CPT/HCPCS: 99213

== ENCOUNTER → 2022-12-26 09:54 | Outpatient (BNVA) | payer MEDICARE, MEDICAID, SELFPAY | PROVIDERS: PCP Internal Medicine; Visit Provider Urology ==

== ENCOUNTER 2023-02-15 10:01 | Emergency (ER) | payer MEDICARE, MEDICAID, SELFPAY ==
--- NOTE | 2023-02-15 | ECG_ITS ---
Test Reason : chest pain Blood Pressure : / mmHG Vent. Rate : 089 BPM Atrial Rate : 089 BPM P-R Int : 142 ms QRS Dur : 150 ms QT Int : 418 ms P-R-T Axes : 061 -46 063 degrees QTc Int : 508 ms Normal sinus rhythm Right bundle branch block Left anterior fascicular block Bifascicular block Left ventricular hypertrophy with repolarization abnormality ( R in aVL , Romhilt-Blair ) Abnormal ECG When compared with ECG of 28-DEC-2019 23:51, No significant change was found Referred By: Generic ED Physician Electronically Signed By:Chau Fam
--- NOTE | ~2023-02-15 | CT_ITS ---
EXAMINATION: CT chest, abdomen pelvis without IV contrast. CLINICAL INDICATIONS: Status post fall with fractures. COMPARISON: None. TECHNIQUE: 5 mm thin axial and reformatted 2 mm thin sagittal and coronal chest and 3 mm thin sagittal and coronal abdomen and pelvis images were obtained without contrast. [facility] 05/04/[address]. This CT examination was performed using dose optimization technique as appropriate, variously including the following: Automated exposure control Adjustment of MA and/or KV according to patient size(this includes techniques or standardized protocols for targeted exams where dose is matched to indication/reason for exam; extremities or head. Use of iterative reconstruction techniques. FINDINGS: Chest: LUNGS: The lungs are well-expanded without any acute consolidation, mass, pulmonary nodules. There is mild atelectatic changes/contusion right lung base. Mediastinum: The thyroid lobes are symmetric and normal. Central trachea and the bronchi are widely patent. Heart size and the great vessels are normal caliber. There is no pericardial effusion. Scratch that there is no pericardial effusion. Trace coronary artery calcifications are seen. The right hemidiaphragm is elevated. Pleura: There is no pleural effusion or thickening. Axilla: There are small shotty lymph nodes in the axilla. The chest wall is unremarkable. Osseous structures: No aggressive lytic or sclerotic process seen. There is no visible rib fracture. ABDOMEN AND PELVIS: Liver, ducts and gallbladder: The liver is mildly enlarged essentially left lobe appears enlarged. It measures 27 cm in craniocaudad length. Liver has a normal contour and density. There is no focal lesion or intrahepatic ductal dilatation. Gallbladder is contracted and barely visible. Spleen: Unremarkable. Pancreas: Unremarkable. Adrenal glands: Unremarkable. Kidneys and ureter: Both kidneys are normal size and density. No radiopaque renal calculi seen. There is no hydronephrosis. There is bilateral perinephric stranding. Lymphovascular structures: Abdominal aorta is normal caliber. Noted lymph nodes or mass seen. GI tract: There is moderate to significant scattered stool and gas seen throughout the colon consistent with constipation. The small bowel loops are normal caliber. Appendix is normal caliber. The stomach is nondistended. Abdominal wall: Unremarkable. Pelvis: The bladder is nondistended. The prostate gland is minimally enlarged. No free air or free fluid seen. Osseous structures: There are degenerative disc changes with vacuum disc phenomena and ventral spondylosis L3-L4 disc level. No aggressive lytic, sclerotic process of acute fractures seen. CT/CT abdomen pelvis wo IV con IMPRESSION: There is no visible rib, vertebral or pelvic fracture seen. Mild atelectatic changes or contusion right lung base. Elevated right hemidiaphragm with hepatomegaly especially left hepatic lobe enlarged. There is no solid organ fracture, contusion or laceration. Bilateral perinephric stranding. Bilateral perinephric stranding. No radiopaque renal calculi or hydronephrosis.
--- NOTE | ~2023-02-15 | CT_ITS ---
EXAMINATION: CT chest, abdomen pelvis without IV contrast. CLINICAL INDICATIONS: Status post fall with fractures. COMPARISON: None. TECHNIQUE: 5 mm thin axial and reformatted 2 mm thin sagittal and coronal chest and 3 mm thin sagittal and coronal abdomen and pelvis images were obtained without contrast. [facility] 05/04/2004. This CT examination was performed using dose optimization technique as appropriate, variously including the following: Automated exposure control Adjustment of MA and/or KV according to patient size(this includes techniques or standardized protocols for targeted exams where dose is matched to indication/reason for exam; extremities or head. Use of iterative reconstruction techniques. FINDINGS: Chest: LUNGS: The lungs are well-expanded without any acute consolidation, mass, pulmonary nodules. There is mild atelectatic changes/contusion right lung base. Mediastinum: The thyroid lobes are symmetric and normal. Central trachea and the bronchi are widely patent. Heart size and the great vessels are normal caliber. There is no pericardial effusion. Scratch that there is no pericardial effusion. Trace coronary artery calcifications are seen. The right hemidiaphragm is elevated. Pleura: There is no pleural effusion or thickening. Axilla: There are small shotty lymph nodes in the axilla. The chest wall is unremarkable. Osseous structures: No aggressive lytic or sclerotic process seen. There is no visible rib fracture. ABDOMEN AND PELVIS: Liver, ducts and gallbladder: The liver is mildly enlarged essentially left lobe appears enlarged. It measures 27 cm in craniocaudad length. Liver has a normal contour and density. There is no focal lesion or intrahepatic ductal dilatation. Gallbladder is contracted and barely visible. Spleen: Unremarkable. Pancreas: Unremarkable. Adrenal glands: Unremarkable. Kidneys and ureter: Both kidneys are normal size and density. No radiopaque renal calculi seen. There is no hydronephrosis. There is bilateral perinephric stranding. Lymphovascular structures: Abdominal aorta is normal caliber. Noted lymph nodes or mass seen. GI tract: There is moderate to significant scattered stool and gas seen throughout the colon consistent with constipation. The small bowel loops are normal caliber. Appendix is normal caliber. The stomach is nondistended. Abdominal wall: Unremarkable. Pelvis: The bladder is nondistended. The prostate gland is minimally enlarged. No free air or free fluid seen. Osseous structures: There are degenerative disc changes with vacuum disc phenomena and ventral spondylosis L3-L4 disc level. No aggressive lytic, sclerotic process of acute fractures seen. CT/CT chest wo IV con IMPRESSION: There is no visible rib, vertebral or pelvic fracture seen. Mild atelectatic changes or contusion right lung base. Elevated right hemidiaphragm with hepatomegaly especially left hepatic lobe enlarged. There is no solid organ fracture, contusion or laceration. Bilateral perinephric stranding. Bilateral perinephric stranding. No radiopaque renal calculi or hydronephrosis.
--- NOTE | ~2023-02-15 | CT_ITS ---
EXAMINATION: CT HEAD WITHOUT CONTRAST CLINICAL INFORMATION: Status post fall COMPARISON: CT abdomen from 07/19/2009 TECHNIQUE: Contiguous axial imaging was performed from the skull base to vertex without intravenous administration of contrast. This CT examination was performed using dose optimization techniques as appropriate, variously including the following: *Automated exposure control *Adjustment of mA and/or kV according to patient size (this includes techniques or standardized protocols for targeted exams where dose is matched to indication/reason for exam; i.e. extremities or head) *Use of iterative reconstruction technique DLP: 505.63 mGy-cm FINDINGS: There is no evidence of acute intracranial hemorrhage or territorial infarction. Chronic white matter small vessel ischemic changes. Mild cerebral atrophy. No abnormal mass effect or midline shift is seen. Pacheco to white matter differentiation is well preserved. No extra-axial fluid collections are identified. The ventricles are normal in size. There is no abnormal attenuation within the brain parenchyma. Hyperostosis frontalis interna. The osseous structures and soft tissues are normal. The mastoid air cells and visualized portions of the paranasal sinuses are well aerated. CT/CT cervical spine wo IV con IMPRESSION: 1. No acute intracranial pathology. 2. Chronic white matter small vessel ischemic changes. EXAMINATION: Noncontrast CT scan of the cervical spine. INDICATION: Status post fall COMPARISON: None. TECHNIQUE: Helical, multidetector axial images were obtained from the occiput to the upper thorax. Coronal and sagittal reformats of the cervical spine were provided for interpretation. DLP: 666.16 mGy-cm FINDINGS: No acute fractures or dislocations of the cervical spine are seen. Slight grade 1 anterolisthesis of C2 on C3. Multilevel degenerative changes. Anatomic alignment and positioning of the vertebral bodies and posterior elements is noted. The atlantoaxial joint and craniovertebral articulations are normal without evidence of subluxation. There is no prevertebral soft tissue swelling. Azygous fissure of the right lung multiple mildly prominent bilateral neck lymph nodes measuring up to 8 mm in short axis. IMPRESSION: 1. No acute visible fracture or dislocation. 2. Slight grade 1 anterolisthesis of C2 on C3. 3. Multilevel degenerative changes.
--- NOTE | ~2023-02-15 | XR_ITS ---
EXAMINATION: XR TIBIA AND FIBULA, RIGHT CLINICAL INFORMATION: Fall, fracture COMPARISON: None available. TECHNIQUE: AP and lateral views of the right tibia and fibula were obtained. FINDINGS: Soft tissue calcification lateral to the mid tibia. No visible fracture or dislocation seen. The ankle mortise and subtalar joints are normal. XR/XR tibia fibula RT 2V IMPRESSION: 1. No acute fracture or dislocation. 2. Soft tissue calcification lateral to the mid tibia likely old injury.
--- NOTE | ~2023-02-15 | US_ITS ---
EXAMINATION: RIGHT LOWER EXTREMITY DEEP VENOUS ULTRASOUND CLINICAL INFORMATION: Right leg swelling. COMPARISON: Right lower extremity DVT study February 20, 2020 TECHNIQUE: Duplex Doppler imaging with compression maneuvers were performed of the right lower extremity deep venous system. FINDINGS: The visualized common femoral, femoral and popliteal veins demonstrate normal compressibility and color flow without evidence of venous thrombosis. There is no evidence of a Rivera's cyst. US/US venous duplex LE RT IMPRESSION: No evidence of femoral to popliteal deep venous thrombosis involving the right lower extremity.
[2023-02-15 10:11] VITALS: BP 113/59; BP 122/58; PULSE 82; PULSE 90; RESP 18; TEMP 36.8; O2SAT 91; O2SAT 95; BMI 38.8
[2023-02-15 11:44] VITALS: BP 113/59; PULSE 90; RESP 18; TEMP 36.8; O2SAT 95
--- NOTE | 2023-02-15 12:18 | PC.NURSE ---
Pt brother Chidi called for update; Chidi states [facility] has had a 24 hour bug going around . Chidi confirms right leg swelling is chronic, not acute. Call back number: [phone] (landline); [phone](mobile) Phone number to [facility] . [facility] in [facility]. assisted staff will provide transport for pt when discharge.
--- NOTE | 2023-02-15 13:06 | ED_ITS ---
HPI - General Adult General Chief complaint: Fall Stated complaint: UNWIT FALL,NO CO,INC WEAK/DIF AMB FROM [facility] PER EMS Time Seen by Provider: 02/15/23 12:48 Source: patient and RN notes reviewed Mode of arrival: ambulatory Limitations: no limitations History of Present Illness HPI narrative: 57-year-old male with past medical history of normocytic anemia, chronic right leg swelling, bifascicular block, BPH, developmental disability, schizophrenia, hypertension, high cholesterol, chronic venous insufficiency of lower extremity presents to ED for evaluation after fall and also evaluation for weakness the past couple of days. Weakness states by RN nurse spoke with EMS who states patient did not hit his head. EMS informed her that patient has needed aide to ambulate and usually patient walks on his own. RN nurse spoke with Brother who states there has been a viral bug going around which has contributed to patient weakness. Patient is develpmental disability, but has no complaints. Related Data Home Medications Medication Instructions Recorded Confirmed citalopram 40 mg tablet 40 mg PO DAILY 12/21/19 12/26/22 lorazepam 1 mg tablet 1 mg PO BID 12/21/19 12/26/22 magnesium hydroxide 400 mg/5 mL 15 ml PO DAILY PRN Constipation 12/29/19 12/26/22 oral suspension (Milk of Magnesia) trazodone 100 mg tablet 100 mg PO BEDTIME PRN Insomnia 12/29/19 12/26/22 ammonium lactate 5 % lotion 1 appl topical DAILY 05/17/20 12/26/22 clozapine 100 mg tablet 100 mg PO BID 02/21/22 12/26/22 divalproex 500 mg tablet,extended 1,000 mg PO BID 02/21/22 12/26/22 release 24 hr Previous Rx's Medication Instructions Recorded ammonium lactate 12 % topical cream 1 appl topical BID PRN dry skin 24 09/18/20 days #385 grams lactase 3,000 unit tablet (Lactaid) 3,000 unit PO TID PRN lactose 03/06/22 intolerance #90 tabs ascorbic acid (vitamin C) 500 mg 500 mg PO BID #180 tabs 05/21/22 tablet (Vitamin C) therapeutic multivitamin 1 tab PO QAM #90 tabs 08/01/22 acetaminophen 500 mg tablet 500 mg PO Q8H PRN Pain, Mild #60 08/22/22 tabs betamethasone, augmented 0.05 % 1 appl topical DAILY PRN rash 10 08/22/22 topical ointment (Diprolene days #15 grams (augmented)) ferrous fumarate 324 mg (106 mg 324 mg PO DAILY #90 tabs 09/19/22 iron) tablet cholecalciferol (vitamin D3) 25 25 mcg PO DAILY #90 caps 10/21/22 mcg (1,000 unit) capsule loperamide 2 mg tablet (Imodium 2 mg PO Q8H PRN Loose Stool #30 12/08/22 A-D) tabs omega 7-qaj-kcv-fish oil 1,200 mg 2 cap PO QPM #180 caps 12/18/22 (144 mg-216 mg) capsule (Fish Oil) mirabegron 25 mg tablet,extended 25 mg PO DAILY 90 days #90 tabs 12/26/22 release 24 hr (Myrbetriq) terazosin 10 mg capsule 10 mg PO BEDTIME 90 days #90 caps 12/26/22 metoprolol tartrate 25 mg tablet 12.5 mg (1/2 x 25 mg) PO BEDTIME 02/12/23 #45 tabs cephalexin 500 mg capsule 500 mg PO QID 7 days #28 caps 02/15/23 Allergies Allergy/AdvReac Type Severity Reaction Status Date / Time Penicillins Allergy Mild RASH Verified 02/15/23 10:15 haloperidol [From Haldol] AdvReac Severe OVER Verified 02/15/23 10:15 SEDATION Review of Systems 2 Review of Systems: no complaints from patient. Yes all other systems are reviewed and are negative [facility] Past Medical History Medical History (Updated 02/16/23 @ 00:02 by Danette Caal) Normocytic normochromic anemia Right leg swelling Disability, developmental History of developmental disability COVID-19 vaccine administered COVID-19 Anemia Right fibular fracture Urinary incontinence Stasis dermatitis of both legs Chronic venous insufficiency of lower extremity Impaired fasting glucose Tubular adenoma of colon Essential hypertension Hypertriglyceridemia BPH (benign prostatic hyperplasia) Surgical History Hx of cystoscopy History of esophagogastroduodenoscopy (EGD) (~12/23/11) History of colonoscopy (~09/30/11) Family History Family History Father No problems noted. Mother No problems noted. Social History Social History Household Members: Other Housing: Assisted Living Facility Housing Other:: jail Are you a primary career based intervention coordinator to a significant other at home: No Do you presently have visiting nurse or other home services: Yes (jail staff) Alcohol intake: never Patient Tobacco Use Status: Never used Tobacco Smoked in Last 30 Days: No e-Cigarette/Vaping Use: Never Used Second Hand Smoke Exposure: No Use of substances other than those prescribed or required for medical reasons: No Advance Directives: No Advance Directives Information Provided: Yes service: No Current occupational status: disabled Cognitive needs: Yes Hearing needs: No Vision needs: No Physical Exam ED Vital Signs: Vital Signs - 24 hr 02/15/23 15:46 02/15/23 18:24 02/15/23 20:00 Temperature 98.1 F 98.6 F Pulse Rate 87 96 99 Respiratory Rate 16 20 15 Blood Pressure 140/65 H 119/77 125/71 Pulse Oximetry 98 97 96 Oxygen Delivery Method Room Air Room Air Room Air BMI result Body Mass Index 38.8 Const General: cooperative, healthy appearing, comfortable, no acute distress and well developed Orientation/consciousness: oriented to person, oriented to place and oriented to time [facility] Head: Yes normal to inspection, Yes No palpable skull fracture present, Yes normocephalic and Yes atraumatic Eyes General: appearance normal, both eyes and all related structures Neck Neck: Yes normal visual inspection, Yes full ROM, Yes no lymphadenopathy, Yes no meningeal signs, Yes trachea midline, Yes supple, No anterior neck swelling and No tender Chest Chest palpation & inspection: normal inspection of the chest and normal palpation of entire chest wall Resp Effort & Inspection: normal respiratory effort and able to speak in complete sentences Auscultation: clear to auscultation bilaterally Cardio Jugular venous distension: no JVD Heart sounds: S1 normal heart sound present and S2 normal heart sound present GI Inspection: Yes normal to inspection Palpation (GI): Soft to palpation, not firm, nontender, no guarding and not rigid General: No CVA tenderness and Yes no CVA tenderness Back/Spine/Pelvis Back: no CVA tenderness, No CVA tenderness and No back tenderness Skin General skin exam: no rashes or lesions noted, elasticity normal and turgor normal Neuro General: oriented to person, oriented to place, oriented to time, moves all extremities, Normal light touch and pain sensation, no meningeal signs, no focal motor deficits, CN's II-XI intact bilaterally and normal sensation to monofilament Extrem General: Yes normal to inspection and Yes full ROM Ankle/foot/toe images: 2 1. Swollen and chronic as per jail and brother. No tenderness on palpation. Neurovascular motor exam intact Psych Appearance: grossly normal and well kempt Medications Administered Discontinued Medications Generic Name Dose Route Start Last Admin Trade Name Freq PRN Reason Stop Dose Admin Sodium Chloride 500 mls @ 500 mls/hr 02/15/23 19:27 02/15/23 19:34 Ns IV 02/15/23 20:26 500 mls/hr .Q1H STA Administration Magnesium Oxide 800 mg 02/15/23 18:20 02/15/23 18:28 Magnesium Oxide 400 Mg Tablet PO 02/15/23 18:21 800 mg ONCE ONE Administration Medical Decision Making Medical Decision Making MDM Narrative: 57-year-old male with past medical history of bifascicular block, schizophrenia, developmental delay, chronic venous insufficiency, chronic leg swelling, hypertension, presents to ED for fall presently with no complaints. Spoke with jail staff Cecile Bruce who states patient had unwitnessed fall this morning. States patient was in the shower himself and when they went in the found patient sitting on the floor. They state patient was not found unconsciousness. States patient was alert and oriented. They deny hearing any loud noise to indicate hard fall. Patient presently denies any complaint. whole body evaluated and negatve for signs of life threatening trauma. Labs EKG ordered due to unwitnessed fall. Patient has developmental delay due to this we will do imaging to make sure there is no brain bleed or rib fractures. Mr. Cecile Bruce states patient has not had any weakness the past couple of days and has had normal gait and walking. 7:22pm. Second troponin negative. Patient talking throughout ED visit. Patient ate 2 plates of food. Patient not in distress. Patient has complete range of motion of all extremities. Imaging negative for any fractures, brain bleed. History physical exam does not indicate stroke. NIH score is 0. UA shows possible UTI. Patient walked around by himself with normal gait. Differential Diagnosis Differential Diagnoses: The differential diagnosis associated with the presentation includes (Brain bleed, cervical spine fracture, pneumonia, pneumothorax, spinal fracture, right leg fracture, DVT,) Admission/Observation Consideration of admission/observation: Escalation of care including admission/observation considered Lab Data MDM Lab Attestation statement: I reviewed the patient's lab results. 02/15/23 13:06 02/15/23 13:06 Labs: Lab Results 02/15/23 02/15/23 02/15/23 Range/Units 13:06 14:45 15:17 WBC 6.5 (4.8-10.8) X10*3/uL RBC 3.73 L (4.60-5.80) X10*6/uL Hgb 11.4 L (14.0-18.0) g/dl Hct 33.6 L (42.0-52.0) % MCV 90.1 (80.0-98.0) fL MCH 30.6 (27.0-33.0) pg MCHC 33.9 (31.0-36.0) g/dl RDW 13.3 (11.0-16.0) % Plt Count 140 L D (160-400) X10*3/uL MPV 10.5 (9.4-12.4) fL Immature Gran % (Auto) 0.3 (0.0-0.4) % Neut % (Auto) 71.3 (45-73) % Lymph % (Auto) 10.1 L (20-40) % [place] % (Auto) 17.7 H (2-11) % Eos % (Auto) 0.3 (0-4) % Baso % (Auto) 0.3 (0-2) % Lymph # (Auto) 0.7 L (1.2-4.9) X10*3/uL [place] # (Auto) 1.2 (0.1-1.2) X10*3/uL Eos # (Auto) 0.0 (0.0-0.4) X10*3/uL Baso # (Auto) 0.0 (0.0-0.2) X10*3/uL Abs Immat Gran (auto) 0.02 (0.00-0.03) X10*3/uL Absolute Neuts (auto) 4.7 (2.0-8.3) x10*3/uL Absolute Nucleated RBC 0.000 (0.0-0.012) X10*3/uL Nucleated RBC % (auto) 0.0 (0.0-0.2) /100WBC PT 12.4 (11.1-13.3) SEC INR 1.0 (0.9-1.1) APTT 31.0 (26.0-36.4) SEC Sodium 134 L (135-145) mmol/L Potassium 4.4 (3.3-5.1) mmol/L Chloride 96 (96-108) mmol/L Carbon Dioxide 25 (22-29) mmol/L Anion Gap 17 (12-20) BUN 17 H (9-16) mg/dL Creatinine 1.01 (0.5-1.4) mg/dL Estim Creat Clear Calc 100.3 Estimated GFR > 60 Random Glucose 94 (60-115) mg/dL Calcium 9.4 D (8.4-10.2) mg/dL Magnesium 1.5 L (1.6-2.6) mg/dL Total Bilirubin 0.3 (0.0-1.0) mg/dL AST 33 (5-37) U/L ALT 22 (0-40) U/L Alkaline Phosphatase 55 (39-117) U/L Total Creatine Kinase 387 H (38-174) U/L Troponin I High Sens 4.8 (<3.5-35.0) ng/L Total Protein 7.3 (6.5-8.0) g/dL Albumin 4.1 (3.5-5.0) g/dL Urine Color Dark Yellow Urine Appearance Cloudy Urine pH 6.5 (5.0-9.0) Ur Specific [place] 1.020 (1.005-1.025) Urine Protein 100 (2+) H (Neg-Trace) mg/dL Urine Glucose (UA) Negative (Negative) mg/dL Urine Ketones Trace (Negative) mg/dL Urine Blood Negative (Negative) Urine Nitrite Negative (Negative) Ur Leukocyte Esterase Trace H (Negative) Urine RBC 3-5 H (0-2) /HPF Urine WBC 6-10 H (0-5) /HPF Ur Squamous Epith Cells 6-10 (0-2) /HPF Urine Bacteria None Seen (None Seen) Hyaline Casts 3-5 (0-2) /LPF Granular Casts Present Influenza Type A (PCR) NEGATIVE (Negative) Influenza Type B (PCR) NEGATIVE (Negative) RSV RNA Qual (PCR) NEGATIVE (Negative) SARS-CoV-2 RNA (RT-PCR) NEGATIVE (Negative) 02/15/23 Range/Units 16:30 WBC (4.8-10.8) X10*3/uL RBC (4.60-5.80) X10*6/uL Hgb (14.0-18.0) g/dl Hct (42.0-52.0) % MCV (80.0-98.0) fL MCH (27.0-33.0) pg MCHC (31.0-36.0) g/dl RDW (11.0-16.0) % Plt Count (160-400) X10*3/uL MPV (9.4-12.4) fL Immature Gran % (Auto) (0.0-0.4) % Neut % (Auto) (45-73) % Lymph % (Auto) (20-40) % [place] % (Auto) (2-11) % Eos % (Auto) (0-4) % Baso % (Auto) (0-2) % Lymph # (Auto) (1.2-4.9) X10*3/uL [place] # (Auto) (0.1-1.2) X10*3/uL Eos # (Auto) (0.0-0.4) X10*3/uL Baso # (Auto) (0.0-0.2) X10*3/uL Abs Immat Gran (auto) (0.00-0.03) X10*3/uL Absolute Neuts (auto) (2.0-8.3) x10*3/uL Absolute Nucleated RBC (0.0-0.012) X10*3/uL Nucleated RBC % (auto) (0.0-0.2) /100WBC PT (11.1-13.3) SEC INR (0.9-1.1) APTT (26.0-36.4) SEC Sodium (135-145) mmol/L Potassium (3.3-5.1) mmol/L Chloride (96-108) mmol/L Carbon Dioxide (22-29) mmol/L Anion Gap (12-20) BUN (9-16) mg/dL Creatinine (0.5-1.4) mg/dL Estim Creat Clear Calc Estimated GFR Random Glucose (60-115) mg/dL Calcium (8.4-10.2) mg/dL Magnesium (1.6-2.6) mg/dL Total Bilirubin (0.0-1.0) mg/dL AST (5-37) U/L ALT (0-40) U/L Alkaline Phosphatase (39-117) U/L Total Creatine Kinase (38-174) U/L Troponin I High Sens 4.1 (<3.5-35.0) ng/L Total Protein (6.5-8.0) g/dL Albumin (3.5-5.0) g/dL Urine Color Urine Appearance Urine pH (5.0-9.0) Ur Specific [place] (1.005-1.025) Urine Protein (Neg-Trace) mg/dL Urine Glucose (UA) (Negative) mg/dL Urine Ketones (Negative) mg/dL Urine Blood (Negative) Urine Nitrite (Negative) Ur Leukocyte Esterase (Negative) Urine RBC (0-2) /HPF Urine WBC (0-5) /HPF Ur Squamous Epith Cells (0-2) /HPF Urine Bacteria (None Seen) Hyaline Casts (0-2) /LPF Granular Casts Influenza Type A (PCR) (Negative) Influenza Type B (PCR) (Negative) RSV RNA Qual (PCR) (Negative) SARS-CoV-2 RNA (RT-PCR) (Negative) Independent Interpretation I performed an independent interpretation of an: EKG (Bifasicular Block, NOrmal Sinus rythm. negative stemi) and CT Scan Radiology Impression Discussion of test interpretation with radiology: I have reviewed the radiologist's reading. Independent Historian Clinical information obtained from an independent historian. History obtained from or confirmed by: Other (Brother Chidi, and correction staff Cecile) External Record Review External record reviewed: Other (prior visits) Prescription Management I considered prescription management with: Antibiotic Discharge Plan Discharge Clinical Impression: Acute UTI, Fall, Weakness Patient Disposition: Home, Self-Care Instructions: Urinary Tract Infection in Men (DC), Fall Prevention for Older Adults (ED) Additional Instructions: Recommend follow-up with primary care provider. You will be discharged with antibiotics. Labs came back at baseline. Images negative for signs of any brain bleed, skull fracture, stroke, abdominal organ injury, pneumonia, pneumothorax, hemothorax, hip fracture. Ultrasound came back negative for DVT. You were treated for hypo magnesemia. Return to the ED immediately for any slurred speech, facial droop, paralysis of extremities, chest pain, shortness of breath, loss of vision, abdominal pain, flank pain, fever, chills, hematuria, dysuria, or any other concerning symptoms. Prescriptions: New cephalexin 500 mg capsule 500 mg PO QID 7 Days Qty: 28 0RF No Action ammonium lactate 12 % cream 1 appl topical BID PRN (Reason: dry skin) 24 Days Qty: 385 4RF lactase [Lactaid] 3,000 unit tablet 3,000 unit PO TID PRN (Reason: lactose intolerance) Qty: 90 1RF ascorbic acid (vitamin C) [Vitamin C] 500 mg tablet 500 mg PO BID Qty: 180 3RF therapeutic multivitamin Tablet 1 tab PO QAM Qty: 90 3RF ferrous fumarate 324 mg (106 mg iron) tablet 324 mg PO DAILY Qty: 90 1RF cholecalciferol (vitamin D3) 25 mcg (1,000 unit) capsule 25 mcg PO DAILY Qty: 90 1RF loperamide [Imodium A-D] 2 mg tablet 2 mg PO Q8H PRN (Reason: Loose Stool) Qty: 30 0RF omega 8-duf-exi-fish oil [Fish Oil] 1,200 (144-216) mg capsule 2 cap PO QPM Qty: 180 1RF metoprolol tartrate 25 mg tablet 12.5 mg PO BEDTIME Qty: 45 1RF magnesium hydroxide [Milk of Magnesia] 400 mg/5 mL Suspension 15 ml PO DAILY PRN (Reason: Constipation) trazodone 100 mg Tablet 100 mg PO BEDTIME PRN (Reason: Insomnia) Rx Instructions: Take 1 tab if no asleep in 2 hrs N.T.E 200 mg in 24 hrs as needed ammonium lactate 5 % lotion 1 appl topical DAILY acetaminophen 500 mg tablet 500 mg PO Q8H PRN (Reason: Pain, Mild) Qty: 60 2RF betamethasone, augmented [Diprolene (augmented)] 0.05 % ointment 1 appl topical DAILY PRN (Reason: rash) 10 Days Qty: 15 0RF lorazepam 1 mg tablet 1 mg PO BID citalopram 40 mg tablet 40 mg PO DAILY clozapine 100 mg tablet 100 mg PO BID divalproex 500 mg tablet extended release 24 hr 1,000 mg PO BID terazosin 10 mg capsule 10 mg PO BEDTIME 90 Days Qty: 90 1RF Myrbetriq 25 mg tablet extended release 24 hr 25 mg PO DAILY 90 Days Qty: 90 1RF Interventions: ED Discharge Assessment Last Done: 02/15/23 20:59 Discharge Date/Time: 02/15/23 21:00 Print Language: Bermudian
[2023-02-15 13:12] VITALS: BP 135/68; PULSE 96; RESP 16; O2SAT 98
[2023-02-15 13:12] LABS: MANUAL DIFF FLAG NO
[2023-02-15 13:14] LABS: Basophils Percent Auto 0.3 % (0-2); Eosinophils Percent Auto 0.3 % (0-4); Hematocrit 33.6 % (42.0-52.0); Hemoglobin 11.4 g/dl (14.0-18.0); Imm Gran Abs Auto 0.02 X10*3/uL (0.00-0.03); Imm Gran Pct Auto 0.3 % (0.0-0.4); Lymphocytes Absolute Auto 0.7 X10*3/uL (1.2-4.9); Lymphocytes Percent Auto 10.1 % (20-40); Mean Corpuscular HGB Conc 33.9 g/dl (31.0-36.0); Mean Corpuscular Hemoglobin 30.6 pg (27.0-33.0); Mean Corpuscular Volume 90.1 fL (80.0-98.0); Mean Platelet Volume 10.5 fL (9.4-12.4); Monocytes Absolute Auto 1.2 X10*3/uL (0.1-1.2); Monocytes Percent Auto 17.7 % (2-11); Neutrophils Absolute Auto 4.7 x10*3/uL (2.0-8.3); Neutrophils Percent Auto 71.3 % (45-73); Platelet Count 140 X10*3/uL (160-400); Red Blood Count 3.73 X10*6/uL (4.60-5.80); Red Cell Distribution Width 13.3 % (11.0-16.0); White Blood Count 6.5 X10*3/uL (4.8-10.8)
[2023-02-15 13:22] LABS: Prothrombin Time 12.4 SEC (11.1-13.3)
[2023-02-15 13:31] LABS: Magnesium 1.5 mg/dL (1.6-2.6)
[2023-02-15 13:38] LABS: Troponin-I High Sensitivity 4.8 ng/L (<3.5-35.0)
[2023-02-15 13:42] LABS: Alanine Aminotransferase 22 U/L (0-40); Albumin Level 4.1 g/dL (3.5-5.0); Alkaline Phosphatase 55 U/L (39-117); Anion Gap 17 (12-20); Aspartate Amino Transferase 33 U/L (5-37); Bilirubin Total 0.3 mg/dL (0.0-1.0); Blood Urea Nitrogen 17 mg/dL (9-16); Calcium 9.4 mg/dL (8.4-10.2); Carbon Dioxide 25 mmol/L (22-29); Chloride 96 mmol/L (96-108); Creatinine Clr Calc Pharmacy 100.3; Estimated Glomerular Filt Rate > 60; Glucose Random 94 mg/dL (60-115); Potassium 4.4 mmol/L (3.3-5.1); Sodium 134 mmol/L (135-145); Total Protein 7.3 g/dL (6.5-8.0)
[2023-02-15 15:26] LABS: Appearance Urine Cloudy; Color Urine Dark Yellow; Glucose Urine UA Negative (Negative); Leukocyte Esterase Urine Trace (Negative); Nitrite Urine Negative (Negative); PH 6.5 (5.0-9.0); UMIC TRIGGER UACC YES; Urine Blood Negative (Negative); Urine Ketones Trace mg/dL (Negative); Urine Protein 100 (2+) mg/dL (Neg-Trace)
[2023-02-15 15:34] LABS: Influenza A PCR NEGATIVE (Negative); Influenza B PCR NEGATIVE (Negative); Resp Syncy Virus RNA Qual PCR NEGATIVE (Negative); SARS COV2 PCR INHOUSE NEGATIVE (Negative)
[2023-02-15 15:39] LABS: Bacteria Urine None Seen (None Seen); Granular Casts Urine Present; UACC Culture Trigger YES
--- NOTE | 2023-02-15 15:43 | PC.NURSE ---
Spoke with Fabiola from [facility] (Staff member who cares for pt); update provided. Fabiola contact: [phone]- this number can be called for pickup of pt when dc'd.
[2023-02-15 15:46] VITALS: BP 140/65; PULSE 87; RESP 16; TEMP 36.7; O2SAT 98
[2023-02-15 17:03] LABS: Troponin-I High Sensitivity 4.1 ng/L (<3.5-35.0)
[2023-02-15 18:24] VITALS: BP 119/77; PULSE 96; RESP 20; O2SAT 97
[2023-02-15] MEDS: Magnesium Oxide 400 MG TABLET 800 MG PO (18:28)
--- NOTE | 2023-02-15 19:07 | MHC.EDTECH ---
Patient given dinner tray
--- NOTE | 2023-02-15 19:30 | PC.NURSE ---
this rn assumed care of pt. this pt assisted pt out of stretcher to assist pt in ambulation. pt walked with steady gait without assistance of this RN. pt denies sob, dizziness and chest pain.
[2023-02-15] MEDS: 0.9 % Sodium Chloride 500 ML IV (19:34)
--- NOTE | 2023-02-15 19:56 | PC.NURSE ---
this rn spoke with Shayla about pt discharge. Shayla to come and transport pt back to [facility].
[2023-02-15 20:00] VITALS: BP 125/71; PULSE 99; RESP 15; TEMP 37; O2SAT 96
--- NOTE | 2023-02-15 20:18 | PC.NURSE ---
pt assisted in getting dressed at this time, pt given hospital pants to go home with.
== END 2023-02-15 21:00 | disposition home or self-care (01) ==
PROVIDERS: Physician Assistant; Emergency Provider Emergency Medicine
DX: N39.0 Urinary tract infection, site not specified (principal); R53.1 Weakness; S89.91XA Unspecified injury of right lower leg, initial encounter; W19.XXXA Unspecified fall, initial encounter; Y93.9 Activity, unspecified; Y92.9 Unspecified place or not applicable; Y99.9 Unspecified external cause status; M79.89 Other specified soft tissue disorders; I87.2 Venous insufficiency (chronic) (peripheral); F89 Unspecified disorder of psychological development; D64.9 Anemia, unspecified; I10 Essential (primary) hypertension; Z20.822 Contact with and (suspected) exposure to COVID-19; Z20.828 Contact with and (suspected) exposure to other viral communicable diseases
CPT/HCPCS: 0241U; 36415; 70450; 71250; 72125; 73590; 74176; 80053; 81001; 82550; 83735; 84484; 85025; 85610; 85730; 87086; 93005; 93971; 99285

== ENCOUNTER → 2023-02-15 10:32 | Outpatient (BNV) | payer MEDICARE, MEDICAID, SELFPAY | PROVIDERS: Emergency Provider Emergency Medicine; Visit Provider Internal Medicine Cardiovascular Disease | DX: R07.9 Chest pain, unspecified (principal) | CPT/HCPCS: 93010 ==

== ENCOUNTER 2023-02-25 14:29 | Outpatient (AMB) | payer MEDICARE, MEDICAID, SELFPAY ==
[2023-02-25 14:30] VITALS: BP 114/70; PULSE 99; BMI 38.0
--- NOTE | 2023-02-25 14:30 | MHC.OFFVIS ---
Intake Vital Signs 02/25/23 14:30 Height 6 ft Weight 279 lb 15.793 oz BMI 38.0 BP 114/70 Blood Pressure Location Lt brachial Position Sitting Pulse 99 Intake Visit Reasons: 1 yr f/up Intake Note: 1 year follow-up had ekg in Jan was in ED for UTI Manager Urgent Care Required: No Carrot Grader Inspector: Carrot Grader Inspector Present Accompanied by: Casino Banker Allergies Penicillins Allergy (Mild, Verified 02/15/23 10:15) RASH haloperidol [From Haldol] Adverse Reaction (Severe, Verified 02/15/23 10:15) OVER SEDATION Medication List - Last Reconciled 02/25/23 by Chau Fam MD acetaminophen 500 mg PO Q8H PRN ammonium lactate 5% 1 appl topical DAILY ammonium lactate 12% 1 appl topical BID PRN 24 days ascorbic acid (vitamin C) (Vitamin C) 500 mg PO BID betamethasone, augmented 0.05 % (Diprolene (augmented)) 1 appl topical DAILY PRN 10 days cephalexin 500 mg PO QID 7 days cholecalciferol (vitamin D3) 25 mcg PO DAILY citalopram 40 mg PO DAILY clozapine 100 mg PO BID divalproex ER 1,000 mg PO BID ferrous fumarate 324 mg PO DAILY lactase (Lactaid) 3,000 units PO TID PRN loperamide (Imodium A-D) 2 mg PO Q8H PRN lorazepam 1 mg PO BID magnesium hydroxide (Milk of Magnesia) 15 mL PO DAILY PRN metoprolol tartrate 12.5 mg (1/2 x 25 mg) PO BEDTIME mirabegron ER (Myrbetriq) 25 mg PO DAILY 90 days omega 2-yej-niu-fish oil 1,200 (144-216) mg (Fish Oil) 2 caps PO QPM terazosin 10 mg PO BEDTIME 90 days therapeutic multivitamin 1 tab PO QAM trazodone 100 mg PO BEDTIME PRN HPI HPI Comments History of Present Illness Details 57-year-old gentleman here for f/u. He has schizophrenia and had ECG which showed bifascular block. He had an ECG preceding this few months back which also showed similar changes. Patient is a poor historian but denies SOB and CP. He is not active and stays at home and does not do much activities. With this level of activity he has no symptoms and he feels he is not limited by any symptom in his daily life. He has chronic lower extremity edema due to venous insufficiency. 02/25/2023: He returns for follow-up. He recently was in the ER for urinary tract infection. He has completed antibiotics and has recovered. Denying any other issues. He wants to go back to work. [facility], [facility] Medical History (Updated 02/16/23 @ 00:02 by Danette Caal) Normocytic normochromic anemia Right leg swelling Disability, developmental History of developmental disability COVID-19 vaccine administered COVID-19 Anemia Right fibular fracture Urinary incontinence Stasis dermatitis of both legs Chronic venous insufficiency of lower extremity Impaired fasting glucose Tubular adenoma of colon Essential hypertension Hypertriglyceridemia BPH (benign prostatic hyperplasia) Surgical History Hx of cystoscopy History of esophagogastroduodenoscopy (EGD) (~12/23/11) History of colonoscopy (~09/30/11) Family History Father No problems noted. Mother No problems noted. Social History Household Members: Other Housing: Assisted Living Facility Housing Other:: care home Are you a primary eye care professional to a significant other at home: No Do you presently have visiting nurse or other home services: Yes (care home staff) Alcohol intake: never Patient Tobacco Use Status: Never used Tobacco e-Cigarette/Vaping Use: Never Used Second Hand Smoke Exposure: No service: No Current occupational status: disabled Cognitive needs: Yes Hearing needs: No Vision needs: No Review of Systems Const Denies chills, Denies fatigue, Denies fever(s), Denies frequent falls, Denies weakness, Denies weight gain and Denies weight loss ENT Denies dizziness Card Denies chest pain, Denies leg edema, Denies lightheadedness, Denies palpitations, Denies dyspnea, Denies dyspnea on exertion, Denies orthopnea and Denies other (loss of consciousness) Resp Denies cough, Denies dyspnea and Denies dyspnea on exertion GI Denies hematochezia and Denies change in stool character Musc Denies abnormal gait, Denies muscle weakness, Denies numbness, Denies radiating pain into limb and Denies tingling Neuro Denies abnormal gait, Denies dizziness, Denies frequent falls, Denies numbness, Denies tingling and Denies weakness Endo Denies fatigue and Denies palpitations Physical Exam Vital Signs: Last Vital Signs Pulse 99 02/25/23 14:30 BP 114/70 02/25/23 14:30 BMI result Body Mass Index 38.0 GENERAL APPEARANCE: in no acute distress. NECK/THYROID: no carotid bruit, no jugular venous distention. SKIN: no suspicious lesions, warm and dry. HEART: no murmurs, regular rate and rhythm, S1, S2 normal. LUNGS: clear to auscultation bilaterally. ABDOMEN: normal, bowel sounds present, soft, nontender, nondistended. EXTREMITIES: no clubbing, cyanosis. bilateral lower extremity edema. PERIPHERAL PULSES: equal. NEUROLOGIC: alert and following commands. Moving all extremities. Assessment & Plan Assessment & Plan (1) Essential hypertension: Code(s): I10 - Essential (primary) hypertension (2) Schizophrenia: Code(s): F20.9 - Schizophrenia, unspecified Qualifiers: Schizophrenia type: unspecified Qualified Code(s): F20.9 - Schizophrenia, unspecified (3) Bifascicular block: Code(s): I45.2 - Bifascicular block Plan [age] gentleman with schizophrenia, bifascicular block and hypertension. Blood pressure control is good. Denying any significant symptoms. Follow-up with us in 6 months. He can return to work without restrictions. He should have once a year fasting lipid panel. Thank you for allowing me to participate in the care of your patient. Please feel free to contact me if you have any questions. Coding Level of Care Code Est Pt Level 3 (89151) Diagnoses Essential hypertension I10 Schizophrenia, unspecified type F20.9 Schizophrenia type: unspecified Bifascicular block I45.2
== END 2023-02-25 15:04 | disposition home or self-care (01) ==
PROVIDERS: PCP Internal Medicine; Visit Provider Internal Medicine Cardiovascular Disease
DX: I10 Essential (primary) hypertension (principal); F20.9 Schizophrenia, unspecified; I45.2 Bifascicular block
CPT/HCPCS: 99213

== ENCOUNTER → 2023-02-25 14:29 | Outpatient (BNVA) | payer MEDICARE, MEDICAID, SELFPAY | PROVIDERS: PCP Internal Medicine; Visit Provider Internal Medicine Cardiovascular Disease | DX: I10 Essential (primary) hypertension (principal); I45.2 Bifascicular block; F20.9 Schizophrenia, unspecified | CPT/HCPCS: 99212 ==

== ENCOUNTER 2023-04-01 07:38 | Outpatient (REF) | payer MEDICARE, MEDICAID, SELFPAY ==
[2023-04-01 11:24] LABS: MANUAL DIFF FLAG NO
[2023-04-01 11:42] LABS: Basophils Percent Auto 0.6 % (0-2); Eosinophils Absolute Auto 0.2 X10*3/uL (0.0-0.4); Eosinophils Percent Auto 4.6 % (0-4); Hematocrit 38.5 % (42.0-52.0); Hemoglobin 12.7 g/dl (14.0-18.0); Imm Gran Abs Auto 0.02 X10*3/uL (0.00-0.03); Imm Gran Pct Auto 0.4 % (0.0-0.4); Lymphocytes Absolute Auto 1.8 X10*3/uL (1.2-4.9); Lymphocytes Percent Auto 34.9 % (20-40); Mean Corpuscular Hemoglobin 30.3 pg (27.0-33.0); Mean Corpuscular Volume 91.9 fL (80.0-98.0); Mean Platelet Volume 11.7 fL (9.4-12.4); Monocytes Absolute Auto 0.6 X10*3/uL (0.1-1.2); Monocytes Percent Auto 11.4 % (2-11); Neutrophils Absolute Auto 2.5 x10*3/uL (2.0-8.3); Neutrophils Percent Auto 48.1 % (45-73); Platelet Count 171 X10*3/uL (160-400); Red Blood Count 4.19 X10*6/uL (4.60-5.80); Red Cell Distribution Width 13.1 % (11.0-16.0); White Blood Count 5.3 X10*3/uL (4.8-10.8)
[2023-04-01 11:59] LABS: Estimated Average Glucose 114 mg/dL; Hemoglobin A1c % 5.6 % (<6.0)
[2023-04-01 12:20] LABS: Alanine Aminotransferase 25 U/L (0-40); Aspartate Amino Transferase 23 U/L (5-37); Cholesterol 150 mg/dL (<200); Glucose Fasting 107 mg/dL (60-99); HDL Cholesterol 43 mg/dL (>40); LDL Cholesterol Calculated 82 mg/dL (<100); Triglycerides 127 mg/dL (<150)
[2023-04-01 12:23] LABS: TSH reflex Free T4 2.44 uIU/mL (0.32-4.0); Vitamin D 25-OH Total 44.1 ng/mL (>30)
[2023-04-01 12:25] LABS: Folate 14.2 ng/mL (> or = 4.0); Vitamin B12 1077 pg/mL (200-900)
== END 2023-04-01 07:39 | disposition home or self-care (01) ==
LOC: HO.HMGCLDS 07:38
PROVIDERS: PCP Internal Medicine; Visit Provider Internal Medicine
DX: D64.9 Anemia, unspecified (principal); R73.01 Impaired fasting glucose; I10 Essential (primary) hypertension; E78.1 Pure hyperglyceridemia
CPT/HCPCS: 36415; 80061; 82306; 82607; 82746; 82947; 83036; 84443; 84450; 84460; 85025

== ENCOUNTER 2023-05-12 14:11 | Outpatient (AMB) | payer MEDICARE, MEDICAID, SELFPAY ==
--- NOTE | 2023-05-12 14:12 | A.OFFVIS_ITS ---
Intake Intake Visit Reasons: med review unable to leave voice mail Intake Note: Patient is Present for Telephone Follow Up Urology Med: Terazosin (Insurance no longer covering Myrbetriq) Antibiotic Allergy: Penicillins Blood Thinner:none Allergies Penicillins Allergy (Mild, Verified 02/15/23 10:15) RASH haloperidol [From Haldol] Adverse Reaction (Severe, Verified 02/15/23 10:15) OVER SEDATION Medication List - Last Reconciled 05/12/23 by Kirk Barrera MD acetaminophen 500 mg PO Q8H PRN ammonium lactate 5% 1 appl topical DAILY ammonium lactate 12% 1 appl topical BID PRN 24 days ascorbic acid (vitamin C) (Vitamin C) 500 mg PO BID betamethasone, augmented 0.05 % (Diprolene (augmented)) 1 appl topical DAILY PRN 10 days cephalexin 500 mg PO QID 7 days cholecalciferol (vitamin D3) 25 mcg PO DAILY citalopram 40 mg PO DAILY clozapine 100 mg PO BID divalproex ER 1,000 mg PO BID ferrous fumarate 324 mg PO DAILY lactase (Lactaid) 3,000 units PO TID PRN loperamide (Imodium A-D) 2 mg PO Q8H PRN lorazepam 1 mg PO BID magnesium hydroxide (Milk of Magnesia) 15 mL PO DAILY PRN metoprolol tartrate 12.5 mg (1/2 x 25 mg) PO BEDTIME mirabegron ER (Myrbetriq) 25 mg PO DAILY 90 days omega 0-czy-fkq-fish oil 1,200 (144-216) mg (Fish Oil) 2 caps PO QPM terazosin 10 mg PO BEDTIME 90 days therapeutic multivitamin 1 tab PO QAM trazodone 100 mg PO BEDTIME PRN vibegron 75 mg PO DAILY 90 days HPI HPI Comments History of Present Illness Details Spencer is a pleasant male. He is a patient of Dr. Valladares. Resident of a [facility]. Accompanied by caregiver. He is seen for the following urologic issue - Lower Urinary Tract Symptoms - weak stream Telemedicine Evaluation 15 min Consultation Doximity Rafael Video attempted Discussed with strategic sourcing manager of his usp Myrbetriq has been canceled by Medicare Gemtessa is covered Prescription provided continue with terazosin Six-month follow-up office Does have occasional accidents at day program Recommend timed voiding Q 3 hour particularly during the day at day program - this would require day program to plac e him on toilet for 2 minutes every 3 hours Lower urinary tract symptoms Longstanding Secondary to psychiatric medications side effects Current medications - terazosin and Myrbetriq Prior medications Flomax and Detrol LA Good effect with minimal accidents PSA 07/19 0.3, 02/21 0.3 PFSH Medical History Normocytic normochromic anemia Right leg swelling Disability, developmental History of developmental disability COVID-19 vaccine administered COVID-19 Anemia Right fibular fracture Urinary incontinence Stasis dermatitis of both legs Chronic venous insufficiency of lower extremity Impaired fasting glucose Tubular adenoma of colon Essential hypertension Hypertriglyceridemia BPH (benign prostatic hyperplasia) Surgical History Hx of cystoscopy History of esophagogastroduodenoscopy (EGD) (~12/23/11) History of colonoscopy (~09/30/11) Family History Father No problems noted. Mother No problems noted. Social History Household Members: Other Housing: Assisted Living Facility Housing Other:: [facility] Are you a primary nurse behavioral health care to a significant other at home: No Do you presently have visiting nurse or other home services: Yes ([facility] staff) Alcohol intake: never Patient Tobacco Use Status: Never used Tobacco e-Cigarette/Vaping Use: Never Used Second Hand Smoke Exposure: No service: No Current occupational status: disabled Cognitive needs: Yes Hearing needs: No Vision needs: No Review of Systems Const All systems reviewed & are unremarkable except as noted in HPI and below Reports no additional complaints Resp Reports no additional complaints GI Reports no additional complaints Reports as per HPI Musc Reports no additional complaints Physical Exam Telemedicine evaluation Appropriate responses Regular breathing rate and rhythm HEENT Head: Yes normal to inspection Ears: hearing grossly normal bilaterally Eyes General: appearance normal, both eyes and all related structures Neck Neck: Yes normal visual inspection Chest Chest palpation & inspection: normal inspection of the chest Resp Effort & Inspection: normal respiratory effort and able to speak in complete sentences Assessment & Plan Assessment & Plan (1) BPH w urinary obs/LUTS: Code(s): N40.1 - Benign prostatic hyperplasia with lower urinary tract symptoms; N13.8 - Other obstructive and reflux uropathy (2) Overactive bladder: Code(s): N32.81 - Overactive bladder Plan Six-month follow-up PVR Medications: New vibegron 75 mg PO DAILY 90 days 90 tabs 1RF N32.81 - Overactive bladder Refilled terazosin 10 mg PO BEDTIME 90 days 90 caps 1RF N13.8 - Other obstructive and reflux uropathy, N40.1 - Benign prostatic hyperplasia with lower urinary tract symptoms, R35.0 - Frequency of micturition Patient Instructions: Imaging studies, laboratory and physical exam results were discussed and reviewed in detail. No major barriers to patient understanding were identified. An opportunity to ask questions regarding the treatment plan was provided. All questions were answered. The patient expressed understanding and agreement with the above treatment plan. The patient is aware they should contact our office by phone for worsening of their current condition or the appearance of new urologic symptoms. Compliance is encouraged with any medications and followup testing that is ordered. It is a privilege to participate in the urologic care of your patient. If you have any questions or concerns regarding treatment for the above conditions, or other urologic issues, please do not hesitate to contact me. The office telephone contact is [phone]. This note is constructed using voice recognition software. While every effort has been made to ensure accuracy financial wellness coach errors may have been included. Yours sincerely, Dr Kirk Barrera MD, [facility] - Urology Providers of Expert, Compassionate Care for the Genitourinary System Telehealth Telehealth Location of provider rendering services: practice address Location of patient: address on file Patient Identification confirmed using: Name, : Yes Telehealth method: video Patient verbally consented to treatment: Yes Patient verbally consented to billing insurance company: Yes Patient informed of any privacy concerns related to visit: Yes Coding Level of Care Code Tele Est Pt Level 4 (53072) Diagnoses BPH w urinary obs/LUTS N40.1; N13.8 Overactive bladder N32.81
== END 2023-05-12 14:40 | disposition home or self-care (01) ==
LOC: HO.HUSH 14:11
PROVIDERS: PCP Internal Medicine; Visit Provider Urology
DX: N40.1 Benign prostatic hyperplasia with lower urinary tract symptoms (principal); N13.8 Other obstructive and reflux uropathy; N32.81 Overactive bladder
CPT/HCPCS: 99214

== ENCOUNTER → 2023-05-12 14:11 | Outpatient (BNVA) | payer MEDICARE, MEDICAID, SELFPAY | PROVIDERS: PCP Internal Medicine; Visit Provider Urology ==

== ENCOUNTER 2023-08-24 13:56 | Outpatient (AMB) | payer MEDICARE, MEDICAID, SELFPAY ==
[2023-08-24 14:03] VITALS: BP 130/80; PULSE 80; BMI 33.7
--- NOTE | 2023-08-24 14:03 | A.OFFVIS_ITS ---
Vital Signs 08/24/23 14:03 Height 6 ft Weight 248 lb 10.903 oz BMI 33.7 BP 130/80 Blood Pressure Location Lt brachial Position Sitting Pulse 80 Pulse Source Pulse Oximeter Intake Visit Reasons: 6 mth f/up Tobacco Wrapping Machine Tender Required: No Accompanied by: Employee Allergies Penicillins Allergy (Mild, Verified 02/15/23 10:15) RASH haloperidol [From Haldol] Adverse Reaction (Severe, Verified 02/15/23 10:15) OVER SEDATION Medication List - Last Reconciled 08/24/23 by Chau Fam MD acetaminophen 500 mg PO Q8H PRN ammonium lactate 5% 1 appl topical DAILY ammonium lactate 12% 1 appl topical BID PRN 24 days ascorbic acid (vitamin C) (Vitamin C) 500 mg PO BID betamethasone, augmented 0.05 % (Diprolene (augmented)) 1 appl topical DAILY PRN 10 days cephalexin 500 mg PO QID 7 days cholecalciferol (vitamin D3) 25 mcg PO DAILY citalopram 40 mg PO DAILY clozapine 100 mg PO BID divalproex ER 1,000 mg PO BID ferrous fumarate 324 mg PO DAILY lactase (Lactaid) 3,000 units PO TID PRN loperamide (Imodium A-D) 2 mg PO Q8H PRN lorazepam 1 mg PO BID magnesium hydroxide (Milk of Magnesia) 15 mL PO DAILY PRN metoprolol tartrate 12.5 mg (1/2 x 25 mg) PO BEDTIME mirabegron ER (Myrbetriq) 25 mg PO DAILY 90 days omega 8-hxa-aop-fish oil 1,200 (144-216) mg (Fish Oil) 2 caps PO QPM terazosin 10 mg PO BEDTIME 90 days therapeutic multivitamin 1 tab PO QAM trazodone 100 mg PO BEDTIME PRN vibegron 75 mg PO DAILY 90 days HPI Comments Details: 57-year-old gentleman here for f/u. He has schizophrenia and had ECG which showed bifascular block. He had an ECG preceding this few months back which also showed similar changes. Patient is a poor historian but denies SOB and CP. He is not active and stays at home and does not do much activities. With this level of activity he has no symptoms and he feels he is not limited by any symptom in his daily life. He has chronic lower extremity edema due to venous insufficiency. 02/25/2023: He returns for follow-up. He recently was in the ER for urinary tract infection. He has completed antibiotics and has recovered. Denying any other issues. He wants to go back to work. 08/24/23: He is here for follow-up. He has no chest discomfort shortness of breath. He is quite irritable and inpatient today and just wanted to leave. Denying any symptoms. There is some swelling of the right lower extremity but accompanying four slide machine setter has added that this is a chronic issue for him. [facility] Medical History Normocytic normochromic anemia Right leg swelling Disability, developmental History of developmental disability COVID-19 vaccine administered COVID-19 Anemia Right fibular fracture Urinary incontinence Stasis dermatitis of both legs Chronic venous insufficiency of lower extremity Impaired fasting glucose Tubular adenoma of colon Essential hypertension Hypertriglyceridemia BPH (benign prostatic hyperplasia) Surgical History Hx of cystoscopy History of esophagogastroduodenoscopy (EGD) (~12/23/11) History of colonoscopy (~09/30/11) Family History Father No problems noted. Mother No problems noted. Social History Household Members: Other Housing: Assisted Living Facility Housing Other:: retirement Are you a primary childcare aide to a significant other at home: No Do you presently have visiting nurse or other home services: Yes (retirement staff) Alcohol intake: never Patient Tobacco Use Status: Never used Tobacco e-Cigarette/Vaping Use: Never Used Second Hand Smoke Exposure: No service: No Current occupational status: disabled Cognitive needs: Yes Hearing needs: No Vision needs: No Review of Systems Const Denies chills, Denies fatigue, Denies fever(s), Denies frequent falls, Denies weakness, Denies weight gain and Denies weight loss ENT Denies dizziness Card Denies chest pain, Denies leg edema, Denies lightheadedness, Denies palpitations, Denies dyspnea and Denies dyspnea on exertion Resp Denies cough, Denies dyspnea and Denies dyspnea on exertion GI Denies hematochezia Musc Denies abnormal gait, Denies muscle weakness, Denies numbness, Denies radiating pain into limb and Denies tingling Neuro Denies abnormal gait, Denies dizziness, Denies frequent falls, Denies numbness, Denies tingling and Denies weakness Endo Denies fatigue and Denies palpitations Physical Exam Vital Signs: Last Vital Signs Pulse 80 08/24/23 14:03 BP 130/80 08/24/23 14:03 BMI result Body Mass Index 33.7 GENERAL APPEARANCE: in no acute distress. NECK/THYROID: no carotid bruit, no jugular venous distention. SKIN: no suspicious lesions, warm and dry. HEART: no murmurs, regular rate and rhythm, S1, S2 normal. LUNGS: clear to auscultation bilaterally. ABDOMEN: normal, bowel sounds present, soft, nontender, nondistended. EXTREMITIES: no clubbing, cyanosis. bilateral lower extremity edema. PERIPHERAL PULSES: equal. NEUROLOGIC: alert and following commands. Moving all extremities. Assessment & Plan Assessment & Plan (1) Essential hypertension: Code(s): I10 - Essential (primary) hypertension Category: Medical (2) Schizophrenia: Code(s): F20.9 - Schizophrenia, unspecified Category: Medical Qualifiers: Schizophrenia type: unspecified Qualified Code(s): F20.9 - Schizophrenia, unspecified (3) Bifascicular block: Code(s): I45.2 - Bifascicular block Category: Medical Plan [age] gentleman with schizophrenia, bifascicular block and hypertension. Blood pressure control is good. Denying any significant symptoms. Follow-up with us in 6 months. He should have once a year fasting lipid panel. Thank you for allowing me to participate in the care of your patient. Please f eel free to contact me if you have any questions. Coding Level of Care Code Est Pt Level 3 (79850) Diagnoses Essential hypertension I10 Schizophrenia, unspecified type F20.9 Schizophrenia type: unspecified Bifascicular block I45.2
== END 2023-08-24 14:27 | disposition home or self-care (01) ==
PROVIDERS: PCP Internal Medicine; Visit Provider Internal Medicine Cardiovascular Disease
DX: I10 Essential (primary) hypertension (principal); F20.9 Schizophrenia, unspecified; I45.2 Bifascicular block
CPT/HCPCS: 99213

== ENCOUNTER → 2023-08-24 13:56 | Outpatient (BNVA) | payer MEDICARE, MEDICAID, SELFPAY | PROVIDERS: PCP Internal Medicine; Visit Provider Internal Medicine Cardiovascular Disease | DX: I10 Essential (primary) hypertension (principal); I45.2 Bifascicular block; F20.9 Schizophrenia, unspecified | CPT/HCPCS: 99212 ==

== ENCOUNTER 2023-10-26 09:51 | Outpatient (RCR) | payer MEDICARE, MEDICAID, SELFPAY | END 2023-11-25 07:37 | disposition home or self-care (01) | LOC: HO.PTCHIC 09:51 | PROVIDERS: PCP Internal Medicine; Visit Provider Internal Medicine | DX: R26.81 Unsteadiness on feet (principal) ==

== ENCOUNTER 2023-11-13 11:17 | Outpatient (AMB) | payer MEDICARE, MEDICAID, SELFPAY ==
--- NOTE | 2023-11-13 11:26 | MHC.OFFVIS ---
Intake Visit Reasons: 6m/PVR Intake Note: Patient is Present for Telephone Follow Up Urology Med: Terazosin, VIBEGRON (Insurance no longer covering Myrbetriq) Antibiotic Allergy: Penicillins Blood Thinner:none TODAY'S PVR: 0ML'S Operating Room Surgical Technician Required: No Allergies Penicillins Allergy (Mild, Verified 11/13/23 11:27) RASH haloperidol [From Haldol] Adverse Reaction (Severe, Verified 11/13/23 11:27) OVER SEDATION HPI Comments Details: Spencer is a pleasant male. He is a patient of Dr. Valladares. Resident of a retirement. Accompanied by caregiver. He is seen for the following urologic issue - Lower Urinary Tract Symptoms - weak stream Accompanied by 2 assistance Gemtessa then terazosin continue to prove effective Six-month follow-up Does have occasional accidents at day program Recommend timed voiding Q 3 hour particularly during the day at day program - this would require day program to place him on toilet for 2 minutes every 3 hours Lower urinary tract symptoms Longstanding Secondary to psychiatric medications side effects Current medications - terazosin and Myrbetriq Prior medications Flomax and Detrol LA Good effect with minimal accidents PSA 07/19 0.3, 02/21 0.3 PFSH Medical History (Updated 11/17/23 @ 16:56 by Kirk Barrera MD) Unsteady gait Normocytic normochromic anemia Right leg swelling Disability, developmental History of developmental disability COVID-19 vaccine administered COVID-19 Anemia Right fibular fracture Urinary incontinence Stasis dermatitis of both legs Chronic venous insufficiency of lower extremity Impaired fasting glucose Tubular adenoma of colon Essential hypertension Hypertriglyceridemia BPH (benign prostatic hyperplasia) Surgical History Hx of cystoscopy History of esophagogastroduodenoscopy (EGD) (~12/23/11) History of colonoscopy (~09/30/11) Family History Father No problems noted. Mother No problems noted. Social History Household Members: Other Housing: Assisted Living Facility Housing Other:: retirement Are you a primary manager medicare marketing to a significant other at home: No Do you presently have visiting nurse or other home services: Yes (retirement staff) Alcohol intake: never Patient Tobacco Use Status: Never used Tobacco e-Cigarette/Vaping Use: Never Used Second Hand Smoke Exposure: No service: No Current occupational status: disabled Cognitive needs: Yes Hearing needs: No Vision needs: No Review of Systems Const Denies chills and Denies fever(s) Card Reports no additional complaints and Denies syncope Resp Denies cough GI Denies abdominal pain and Denies heartburn Reports as per HPI and Denies change in libido Neuro Denies syncope Psych Denies change in libido Endo Denies change in libido Physical Exam Const General: cooperative, healthy appearing, comfortable and no acute distress Orientation/consciousness: patient oriented x3 HEENT Face and sinus: Yes normal facial exam Mouth: moist mucous membranes Neck Neck: Yes normal visual inspection, Yes full ROM and Yes trachea midline Chest Chest palpation & inspection: normal inspection of the chest Resp Effort & Inspection: normal respiratory effort, able to speak in complete sentences and no respiratory distress GI Inspection: Yes normal to inspection Back/Spine/Pelvis Cervical Spine: normal cervical lordosis Thoracic/Lumbar Spine: thoracic and lumbar spine normal to inspection Skin General skin exam: no rashes or lesions noted Neuro General: patient oriented x3, gait normal, tone normal and moves all extremities Extrem General: Yes normal to inspection and Yes capillary refill normal Office Procedures Post Void Residual Post Residual Void Post Void Residual (PVR): 0 [id number] Void Residual by ultrasound Assessment & Plan Assessment & Plan (1) BPH w urinary obs/LUTS: Code(s): N40.1 - Benign prostatic hyperplasia with lower urinary tract symptoms; N13.8 - Other obstructive and reflux uropathy Category: Medical (2) Detrusor instability of bladder: Code(s): N32.81 - Overactive bladder Category: Medical (3) Increased frequency of urination: Code(s): R35.0 - Frequency of micturition Category: Medical Plan Continue interval surveillance Medications: Refilled vibegron 75 mg PO DAILY 90 tabs 3RF 90 days N32.81 - Overactive bladder terazosin 10 mg PO BEDTIME 90 caps 3RF 90 days N13.8 - Other obstructive and reflux uropathy, N40.1 - Benign prostatic hyperplasia with lower urinary tract symptoms, R35.0 - Frequency of micturition Discontinued mirabegron ER (Myrbetriq) Discontinued Reason: Patient Completed Course 25 mg PO DAILY 90 days 90 tabs 1RF N32.81 - Overactive bladder, R35.0 - Frequency of micturition, R39.15 - Urgency of urination Patient Instructions: Imaging studies, laboratory and physical exam results were discussed and reviewed in detail. No major barriers to patient understanding were identified. An opportunity to ask questions regarding the treatment plan was provided. All questions were answered. The patient expressed understanding and agreement with the above treatment plan. The patient is aware they should contact our office by phone for worsening of their current condition or the appearance of new urologic symptoms. Compliance is encouraged with any medications and followup testing that is ordered. It is a privilege to participate in the urologic care of your patient. If you have any questions or concerns regarding treatment for the above conditions, or other urologic issues, please do not hesitate to contact me. The office telephone contact is [phone]. This note is constructed using voice recognition software. While every effort has been made to ensure accuracy sales and service consultant errors may have been included. Yours sincerely, Dr Kirk Barrera MD, [facility] - Urology Providers of Expert, Compassionate Care for the Genitourinary System Coding Level of Care Code Est Pt Level 3 (92604) Diagnoses BPH w urinary obs/LUTS N40.1; N13.8 Detrusor instability of bladder N32.81 Increased frequency of urination R35.0 CPT Codes Post Residual Void - PVR CPT Code: 83135-[id number] Void Residual by ultrasound ([id number])
== END 2023-11-13 12:16 | disposition home or self-care (01) ==
PROVIDERS: PCP Internal Medicine; Visit Provider Urology
DX: N40.1 Benign prostatic hyperplasia with lower urinary tract symptoms (principal); N13.8 Other obstructive and reflux uropathy; N32.81 Overactive bladder; R35.0 Frequency of micturition
CPT/HCPCS: 99213

== ENCOUNTER → 2023-11-13 11:17 | Outpatient (BNVA) | payer MEDICARE, MEDICAID, SELFPAY | PROVIDERS: PCP Internal Medicine; Visit Provider Urology | DX: N40.1 Benign prostatic hyperplasia with lower urinary tract symptoms (principal); N32.81 Overactive bladder; N13.8 Other obstructive and reflux uropathy; R39.15 Urgency of urination | CPT/HCPCS: 51798; 99212 ==

== ENCOUNTER 2023-11-30 08:35 | Outpatient (AMB) | payer MEDICARE, MEDICAID, SELFPAY ==
--- NOTE | 2023-11-30 09:05 | A.OFFPC_ITS ---
Vital Signs 11/30/23 09:06 Height 6 ft Weight 255 lb BMI 34.6 BP 130/76 Blood Pressure Location Lt brachial Position Sitting Pulse 107 H Pulse Source Pulse Oximeter Pulse Oximetry (%) 95 Oxygen Delivery Method Room Air Intake Visit Reasons: PE Intake Note: Pt is here today for his PE: last colonoscopy 04/30/20 Allergies Penicillins Allergy (Mild, Verified 11/30/23 09:41) RASH haloperidol [From Haldol] Adverse Reaction (Severe, Verified 11/30/23 09:41) OVER SEDATION Medication List - Last Reviewed 11/30/23 by Bianca Lanza CMA acetaminophen 500 mg PO Q8H PRN ammonium lactate 12% 1 appl topical BID PRN 24 days ascorbic acid (vitamin C) (Vitamin C) 500 mg PO BID betamethasone, augmented 0.05 % (Diprolene (augmented)) 1 appl topical DAILY PRN 10 days cholecalciferol (vitamin D3) 25 mcg PO DAILY citalopram 40 mg PO DAILY clozapine 100 mg PO BID divalproex ER 1,000 mg PO BID ferrous fumarate 324 mg PO DAILY lactase (Lactaid) 3,000 units PO TID PRN loperamide (Imodium A-D) 2 mg PO Q8H PRN lorazepam 1 mg PO BID magnesium hydroxide (Milk of Magnesia) 15 mL PO DAILY PRN metoprolol tartrate 12.5 mg (1/2 x 25 mg) PO BEDTIME omega 7-vpk-ooz-fish oil 1,200 (144-216) mg (Fish Oil) 2 caps PO QPM terazosin 10 mg PO BEDTIME 90 days therapeutic multivitamin 1 tab PO QAM trazodone 100 mg PO BEDTIME PRN vibegron 75 mg PO DAILY 90 days Tobacco use date assessed: 11/30/23 Dental Screening Dental Screen Date: 11/30/23 HPI PE HPI Details 58-year-old male with history of schizop hrenia, developmental disability, currently followed by psychiatry, has normocytic normochromic anemia, has chronic venous insufficiency of lower extremity, impaired fasting glucose, history of adenomatous polyp in colon, hypertension, hypertriglyceridemia history of detrusor instability of bladder, here today for physical exam. He is accompanied today by his caregiver, patient however not very cooperative during history taking and physical exam, and most of the history is obtained from his caregiver. Patient also insisting not to touch his feet. As per caregiver however he has been having recurrent swelling in his right lower extremity, worse towards the end of the day. He had a screening colonoscopy done in [address] Sparks with removal of hyperplastic polyp and tubular adenoma, and recommended to have it repeated again in 2 years. Patient however refuses to have it done and does not want to do Cologuard testing [facility] Medical History (Updated 11/30/23 @ 10:03 by Pauline Valladares MD) Stasis dermatitis of right lower extremity due to peripheral venous hypertension Unsteady gait Normocytic normochromic anemia Right leg swelling Disability, developmental History of developmental disability COVID-19 vaccine administered COVID-19 Right fibular fracture Urinary incontinence Stasis dermatitis of both legs Chronic venous insufficiency of lower extremity Impaired fasting glucose Tubular adenoma of colon Essential hypertension Hypertriglyceridemia BPH (benign prostatic hyperplasia) Surgical History Hx of cystoscopy History of esophagogastroduodenoscopy (EGD) (~12/23/11) History of colonoscopy (~09/30/11) Family History Father No problems noted. Mother No problems noted. Social History Household Members: Other Housing: Assisted Living Facility Housing Other:: jail Are you a primary residential care officer to a significant other at home: No Do you presently have visiting nurse or other home services: Yes (jail staff) Alcohol intake: never Patient Tobacco Use Status: Never used Tobacco e-Cigarette/Vaping Use: Never Used Second Hand Smoke Exposure: No service: No Current occupational status: disabled Cognitive needs: Yes Hearing needs: No Vision needs: No Questionnaire PHQ-9 Over the last 2 weeks, how often have you been bothered by any of the following problems? 43795 - PHQ-9 Billing: Patient declined-do not bill Source: Developed by Drs. Henrik Hook, Phuong Pollock, Kei Jett and colleagues, with an educational chin from [employer]. Thrive Questionnaire Date Thrive assessed: 11/30/23 I am a: Parent/Caregiver What is your living situation today?: I have a steady place to live Within the past 12 months, did the food you bought not last and you didn't have the money to get more?: Never true Within the past 12 months, did you worry whether your food would run out before you got money to buy more?: Never true Do you have trouble paying for medicines?: No Do you have trouble getting transportation to medical appointments?: No Do you have trouble paying your heating and electricity bill?: No Do you have trouble taking care of your child, family member or friend?: No Do you have trouble with day-to-day activities such as bathing, preparing meals, shopping, managing finances, etc.?: No Are you interested in more education?: No Please select the resources that you would like help with: None Currently or been in a relationship where the following occur: No concerns reported THRIVE Score: 0 AUDIT C Alcohol Use Questionnaire (AUDIT-C) 1. How often do you have a drink containing alcohol?: Never Total Score: 0 NANNETTE-7 AMB Questionnaire NANNETTE-7 Date NANNETTE - 7 assessed: 11/30/23 Source: Developed by Drs. Henrik Hook, Phuong Pollock, Kei Jett and colleagues, with an educational chin from [employer]. NANNETTE-7 Assessment Billing NANNETTE-7 Assessment Tool: pt declined-do not bill Review of Systems Const Denies chills, Denies fever(s), Reports frequent falls, Denies weakness and Reports weight gain Eyes Reports no additional complaints ENT Reports no additional complaints Card Denies chest pain, Denies leg edema, Denies lightheadedness, Denies palpi tations, Denies dyspnea and Denies dyspnea on exertion Resp Denies cough, Denies dyspnea and Denies dyspnea on exertion GI Denies abdominal pain, Denies melena, Denies hematochezia and Denies change in bowel habits Musc Reports abnormal gait, Denies radiating pain into limb, Reports stiffness and Reports tingling Skin/Breast Reports erythema (Lower half of right lower leg) Neuro Reports abnormal gait, Reports frequent falls, Reports tingling and Denies weakness Endo Reports no additional complaints and Denies palpitations Willie/Lymph Reports no additional complaints Aller/Immun Reports no additional complaints Physical exam (Primary Care) Vital Signs: Last Vital Signs Pulse 107 H 11/30/23 09:06 BP 130/76 11/30/23 09:06 Pulse Ox 95 11/30/23 09:06 Oxygen Delivery Method Room Air 11/30/23 09:06 BMI result Body Mass Index 34.6 BMI Assessment/Plan discussion: High BMI High, discussed plan: lifestyle, weight reduction, dietary and physical activity Tobacco/Smoking Status: Tobacco use Status Tobacco use date assessed 11/30/23 11/30/23 09:07 Patient Tobacco Use Status Never used Tobacco 11/30/23 09:07 e-Cigarette/Vaping Use Never Used 11/30/23 09:07 Thrive Assessment: Date of Thrive Assessment Date Thrive assessed 11/30/23 11/30/23 09:07 Currently or been in a relationship where the following occur: No concerns reported Const Other: Agitated, walks with a stiff unsteady gait General: awake Nutritional Appearance: obese HENMT Other: Normocephalic , atraumatic Face and sinus: Yes face symmetric Mouth: Normal oral and palatal mucosa present and moist mucous membranes Eyes General: appearance normal, both eyes and all related structures Conjunctivae: conjunctivae normal Sclerae: sclerae normal Neck Other: Supple, no lymphadenopathy Resp Effort & Inspection: normal respiratory effort and able to speak in complete sentences Auscultation: clear to auscultation bilaterally Cardio Other: S1-S2 present regular in rhythm GI Other: Obese, firm, normal bowel sounds nontender, no mass palpated Other: Refused exam General: Yes no CVA tenderness Back/Spine/Pelvis Back: no CVA tenderness Skin Other: Diffuse erythema on lower half of right lower leg with tight skin noted Extrem Other: Patient refusing to have foot examined Psych Appearance: disheveled Speech and movement: Echolalia present (Psych) and Psychomotor agitation in speech present Affect: Irritable affect present Attitude: Belligerent attititude/behavior present Coding Level of Care Code Est Pt Prev Care 40-64y(75739) Diagnoses Annual visit for general adult medical examination with abnormal findings Z00.01 Unsteady gait R26.81 Detrusor instability of bladder N32.81 Right leg swelling M79.89 Normocytic normochromic anemia D64.9 Bifascicular block I45.2 Disability, developmental F89 BPH w urinary obs/LUTS N40.1; N13.8 Schizophrenia, unspecified type F20.9 Schizophrenia type: unspecified Tubular adenoma of colon D12.6 Essential hypertension I10 Chronic venous insufficiency of lower extremity I87.2 Hypertriglyceridemia E78.1 Stasis dermatitis of right lower extremity due to peripheral venous hypertension I87.321
[2023-11-30 09:06] VITALS: BP 130/76; PULSE 107; O2SAT 95; BMI 34.6
== END 2023-11-30 10:38 | disposition home or self-care (01) ==
PROVIDERS: PCP Internal Medicine; Visit Provider Internal Medicine
DX: Z00.00 Encounter for general adult medical examination without abnormal findings (principal); F20.9 Schizophrenia, unspecified; R26.81 Unsteadiness on feet; N32.81 Overactive bladder; M79.89 Other specified soft tissue disorders; D64.9 Anemia, unspecified; I45.2 Bifascicular block; F89 Unspecified disorder of psychological development; N40.1 Benign prostatic hyperplasia with lower urinary tract symptoms; N13.8 Other obstructive and reflux uropathy; D12.6 Benign neoplasm of colon, unspecified

== ENCOUNTER → 2023-11-30 08:35 | Outpatient (BNVA) | payer MEDICARE, MEDICAID, SELFPAY | PROVIDERS: PCP Internal Medicine; Visit Provider Internal Medicine | DX: Z00.01 Encounter for general adult medical examination with abnormal findings (principal); R26.81 Unsteadiness on feet; N32.81 Overactive bladder; M79.89 Other specified soft tissue disorders; D64.9 Anemia, unspecified; I45.2 Bifascicular block; F89 Unspecified disorder of psychological development; N40.1 Benign prostatic hyperplasia with lower urinary tract symptoms; N13.8 Other obstructive and reflux uropathy; F20.9 Schizophrenia, unspecified; D12.6 Benign neoplasm of colon, unspecified; I10 Essential (primary) hypertension; I87.2 Venous insufficiency (chronic) (peripheral); E87.1 Hypo-osmolality and hyponatremia; I87.321 Chronic venous hypertension (idiopathic) with inflammation of right lower extremity | CPT/HCPCS: 99396 ==

== ENCOUNTER 2023-12-14 08:33 | Outpatient (REF) | payer MEDICARE, MEDICAID, SELFPAY ==
[2023-12-14 10:02] LABS: MANUAL DIFF FLAG NO
[2023-12-14 10:12] LABS: Basophils Percent Auto 0.7 % (0-2); Eosinophils Absolute Auto 0.3 X10*3/uL (0.0-0.4); Hematocrit 34.1 % (42.0-52.0); Hemoglobin 11.9 g/dl (14.0-18.0); Imm Gran Abs Auto 0.02 X10*3/uL (0.00-0.03); Imm Gran Pct Auto 0.4 % (0.0-0.4); Lymphocytes Absolute Auto 1.7 X10*3/uL (1.2-4.9); Mean Corpuscular HGB Conc 34.9 g/dl (31.0-36.0); Mean Corpuscular Hemoglobin 30.4 pg (27.0-33.0); Mean Platelet Volume 10.7 fL (9.4-12.4); Monocytes Absolute Auto 0.6 X10*3/uL (0.1-1.2); Monocytes Percent Auto 11.4 % (2-11); Neutrophils Absolute Auto 2.8 x10*3/uL (2.0-8.3); Neutrophils Percent Auto 50.5 % (45-73); Platelet Count 186 X10*3/uL (160-400); Red Blood Count 3.92 X10*6/uL (4.60-5.80); Red Cell Distribution Width 12.6 % (11.0-16.0); White Blood Count 5.4 X10*3/uL (4.8-10.8)
[2023-12-14 10:44] LABS: Alanine Aminotransferase 21 U/L (0-40); Anion Gap 14 (12-20); Aspartate Amino Transferase 23 U/L (5-37); Blood Urea Nitrogen 9 mg/dL (9-16); Calcium 9.7 mg/dL (8.4-10.2); Carbon Dioxide 28 mmol/L (22-29); Chloride 92 mmol/L (96-108); Cholesterol 131 mg/dL (<200); Estimated Glomerular Filt Rate > 60; Glucose Fasting 106 mg/dL (60-99); HDL Cholesterol 49 mg/dL (>40); Iron 93 mcg/dL (45-160); LDL Cholesterol Calculated 72 mg/dL (<100); Percent Iron Saturation 32 % (15-50); Potassium 3.9 mmol/L (3.3-5.1); Sodium 130 mmol/L (135-145); Total Iron Binding Capacity 294 mcg/dL (228-428); Triglycerides 54 mg/dL (<150); Unsaturated Iron Binding 201 ug/dL
[2023-12-14 10:51] LABS: Ferritin 182 ng/mL (20-250)
== END 2023-12-14 08:34 | disposition home or self-care (01) ==
LOC: HO.HMGCLDS 08:33
PROVIDERS: PCP Internal Medicine; Visit Provider Internal Medicine
DX: D64.9 Anemia, unspecified (principal); M79.89 Other specified soft tissue disorders; R73.01 Impaired fasting glucose; I10 Essential (primary) hypertension; D12.6 Benign neoplasm of colon, unspecified; E78.1 Pure hyperglyceridemia
CPT/HCPCS: 36415; 80048; 80061; 82728; 83540; 84450; 84460; 85025

== ENCOUNTER 2024-01-19 09:47 | Outpatient (AMB) | payer MEDICARE, MEDICAID, SELFPAY ==
--- NOTE | 2024-01-19 09:51 | A.OFFVIS_ITS ---
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 Pain and swelling in right leg. 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 Spencer is able to answer questions; however, he appears very impatient, asking about when the visit will be over. Complaints include pain in his right lower extremity, swelling of lower extremities, mostly right, cramping, fatigue, and heaviness of the lower extremities. It has been af fecting their daily activities including walking and standing. It is noted more so in right leg. Patient is s/p left GSV Venaseal [place] [address] Alberto Patient denies any history of DVT/ PE. Patient denies any history of phlebitis. Trial of compression includes - elevation. Compression stockings with noncompliance They now present for vascular evaluation regarding their varicose veins. [facility] Medical History Stasis dermatitis of right lower extremity due to peripheral venous hypertension Unsteady gait Normocytic normochromic anemia Right leg swelling Disability, developmental History of developmental disability COVID-19 vaccine administered COVID-19 Right fibular fracture Urinary incontinence Stasis dermatitis of both legs Chronic venous insufficiency of lower extremity Impaired fasting glucose Tubular adenoma of colon Essential hypertension Hypertriglyceridemia BPH (benign prostatic hyperplasia) Surgical History Hx of cystoscopy History of esophagogastroduodenoscopy (EGD) (~12/23/11) History of colonoscopy (~09/30/11) Family History Father No problems noted. Mother No problems noted. Social History Household Members: Other Housing: Assisted Living Facility Housing Other:: long-term Are you a primary healthcare or medical to a significant other at home: No Do you presently have visiting nurse or other home services: Yes (long-term staff) Alcohol intake: never Patient Tobacco Use Status: Never used Tobacco e-Cigarette/Vaping Use: Never Used Second Hand Smoke Exposure: No service: No Current occupational status: disabled Cognitive needs: Yes Hearing needs: No Vision needs: No Review of Systems Const Reports as per HPI and Denies weakness ENT Reports Normal hearing present and Denies dizziness Card Reports as per HPI, Denies chest pain, Denies chest pain at rest, Denies chest pain with activity, Denies dyspnea and Denies dyspnea on exertion Resp Reports as per HPI, Denies cough, Denies dyspnea and Denies dyspnea on exertion GI Reports as per HPI, Denies abdominal pain, Denies nausea and Denies vomiting Musc Denies numbness Skin/Breast Reports as per HPI, Denies erythema and Denies wounds Neuro Reports Normal hearing present, Denies dizziness, Denies numbness, Denies Sensory deficit (Neuro) and Denies weakness Psych Reports no additional complaints Endo Reports no additional complaints Physical Exam Const General: healthy appearing and no acute distress Orientation/consciousness: patient oriented x3 HEENT Head: Yes normal to inspection Ears: hearing grossly normal bilaterally Mouth: Normal oral and palatal mucosa present Resp Effort & Inspection: normal respiratory effort and able to speak in complete sentences Auscultation: clear to auscultation bilaterally Cardio Jugular venous distension: no JVD Rate: regular rate Rhythm: regular rhythm Heart sounds: S1 normal heart sound present and S2 normal heart sound present Bruits: no abdominal aortic bruits, no carotid bruits, no femoral bruits and no renal bruits Peripheral pulses: Peripheral pulses 2+ throughout GI Inspection: Yes normal to inspection Palpation (GI): No Abdominal aortic bruit present Skin General skin exam: no rashes or lesions noted Wounds: no wounds Hair: normal Neuro General: patient oriented x3 Cranial nerves: Yes Normal hearing present Cognition (Neuro): normal cognition Gait exam (Neuro): Normal gait present Motor exam (neuro): 5/5 motor strength present throughout Sensory Exam: No Sensory deficit (Neuro) Extrem Other: Right lower extremity: 1+ edema noted. Palpable DP pulses. No varicosities noted; however, pt would not pull up pant legs and would not change into shorts. Left lower extremity: trace edema noted. CEAP: C - 3 E - primary A - superficial P - reflux General: Yes normal to inspection, Yes full ROM, Yes capillary refill normal and Yes normal gait Assessment & Plan Assessment & Plan (1) Varicose veins of both lower extremities with inflammation: Code(s): I83.11 - Varicose veins of right lower extremity with inflammation; I83.12 - Varicose veins of left lower extremity with inflammation Category: Medical Plan: Spencer is presenting today with a caregiver for concerns of right lower extremity swelling with pain. He has had a venous procedure, left venaseal, in 2019 and the caregiver states the pt has had no difficulties since. In short, the patient has evidence of venous insufficiency. I have discussed the pathophysiology with the patient. In addition I have provided informational material regarding venous disease to the patient. We have discussed conservative measures including compression, elevation, and exercise. The pt has not tolerated compression stockings in the past; we discussed to have him try them again. I have taken the liberty of ordering venous insufficiency testing with the patient. They will follow up with me after testing. The patient and caregiver had an opportunity to ask questions regarding the treatment plan. All questions were answered. No major barriers to understanding were identified. The patient expressed understanding and agreement with the above treatment plan. The patient is aware they should contact our office by phone for worsening of the current condition or the appearance of new symptoms. Thank you for allowing me to participate in the vascular care of this patient. If you have any questions or concerns regarding the treatment for the above condition please do not hesitate to contact me. The office telephone contact is [phone]. This note is constructed using voice recognition software. While every effort has been made to ensure accuracy, college archivist errors may have been included. Thank you for allowing me to participate in the care of your patient. Yours sincerely, MIGUEL Barry Orders: Orders US venous duplex LE BI 1 Week I83.11 - Varicose veins of right lower extremity with inflammation, I83.12 - Varicose veins of left lower extremity with inflammation Coding Level of Care Code New Pt Level 4 (98182) Diagnoses Varicose veins of both lower extremities with inflammation I83.11; I83.12
== END 2024-01-19 10:07 | disposition home or self-care (01) ==
PROVIDERS: PCP Internal Medicine; Visit Provider Physician Assistant Surgical
DX: I83.11 Varicose veins of right lower extremity with inflammation (principal); I83.12 Varicose veins of left lower extremity with inflammation
CPT/HCPCS: 99204

== ENCOUNTER → 2024-01-19 09:47 | Outpatient (BNVA) | payer MEDICARE, MEDICAID, SELFPAY | PROVIDERS: PCP Internal Medicine; Visit Provider Physician Assistant Surgical | DX: I83.11 Varicose veins of right lower extremity with inflammation (principal); I83.12 Varicose veins of left lower extremity with inflammation | CPT/HCPCS: 99202 ==

== ENCOUNTER 2024-02-05 10:10 | Outpatient (REF) | payer MEDICARE, MEDICAID, SELFPAY | END 2024-02-05 10:11 | disposition home or self-care (01) | LOC: HO.US 10:10 | PROVIDERS: PCP Internal Medicine; Visit Provider Physician Assistant Surgical | DX: I83.11 Varicose veins of right lower extremity with inflammation (principal); I83.12 Varicose veins of left lower extremity with inflammation | CPT/HCPCS: 93971 ==

== ENCOUNTER → 2024-02-05 10:14 | Outpatient (BNV) | payer MEDICARE, MEDICAID, SELFPAY | PROVIDERS: PCP Internal Medicine; Visit Provider Radiology Diagnostic Radiology | DX: I83.11 Varicose veins of right lower extremity with inflammation (principal) | CPT/HCPCS: 93971 ==

== ENCOUNTER 2024-02-18 10:47 | Outpatient (AMB) | payer MEDICARE, MEDICAID, SELFPAY ==
--- NOTE | 2024-02-18 10:51 | MHC.OFFVIS ---
Intake Visit Reasons: follow up s/p US 02/05/24 Intake Note: Patient presents for US. Accompanied by: Guardian Allergies Penicillins Allergy (Mild, Verified 02/18/24 10:54) RASH haloperidol [From Haldol] Adverse Reaction (Severe, Verified 02/18/24 10:54) OVER SEDATION HPI HPI follow up s/p US 02/05/24: Details: Spencer is presenting today for a follow up to his US performed on 02/05/24. The US tech was unable to complete the US; the pt became uncooperative and agitated while attempting to finish the RLE. The LLE was unable to be done at all. The pt continues with RLE swelling and pain. He is non-compliant with elevation and compression stockings. [facility] Medical History Stasis dermatitis of right lower extremity due to peripheral venous hypertension Unsteady gait Normocytic normochromic anemia Right leg swelling Disability, developmental History of developmental disability COVID-19 vaccine administered COVID-19 Right fibular fracture Urinary incontinence Stasis dermatitis of both legs Chronic venous insufficiency of lower extremity Impaired fasting glucose Tubular adenoma of colon Essential hypertension Hypertriglyceridemia BPH (benign prostatic hyperplasia) Surgical History Hx of cystoscopy History of esophagogastroduodenoscopy (EGD) (~12/23/11) History of colonoscopy (~09/30/11) Family History Father No problems noted. Mother No problems noted. Social History Household Members: Other Housing: Assisted Living Facility Housing Other:: prison Are you a primary senior care manager to a significant other at home: No Do you presently have visiting nurse or other home services: Yes (prison staff) Alcohol intake: never Patient Tobacco Use Status: Never used Tobacco e-Cigarette/Vaping Use: Never Used Second Hand Smoke Exposure: No service: No Current occupational status: disabled Cognitive needs: Yes Hearing needs: No Vision needs: No Review of Systems Const Reports as per HPI and Denies weakness ENT Reports Normal hearing present and Denies dizziness Card Reports as per HPI, Denies chest pain, Denies chest pain at rest, Denies chest pain with activity, Denies dyspnea and Denies dyspnea on exertion Resp Reports as per HPI, Denies cough, Denies dyspnea and Denies dyspnea on exertion GI Reports as per HPI, Denies abdominal pain, Denies nausea and Denies vomiting Musc Denies numbness Skin/Breast Reports as per HPI, Denies erythema and Denies wounds Neuro Reports Normal hearing present, Denies dizziness, Denies numbness, Denies Sensory deficit (Neuro) and Denies weakness Psych Reports no additional complaints Endo Reports no additional complaints Physical Exam Const General: healthy appearing and no acute distress Orientation/consciousness: patient oriented x3 HEENT Head: Yes normal to inspection Ears: hearing grossly normal bilaterally Mouth: Normal oral and palatal mucosa present Resp Effort & Inspection: normal respiratory effort and able to speak in complete sentences Auscultation: clear to auscultation bilaterally Cardio Jugular venous distension: no JVD Rate: regular rate Rhythm: regular rhythm Heart sounds: S1 normal heart sound present and S2 normal heart sound present Bruits: no abdominal aortic bruits, no carotid bruits, no femoral bruits and no renal bruits Peripheral pulses: Peripheral pulses 2+ throughout GI Inspection: Yes normal to inspection Palpation (GI): No Abdominal aortic bruit present Skin General skin exam: no rashes or lesions noted Wounds: no wounds Hair: normal Neuro General: patient oriented x3 Cranial nerves: Yes Normal hearing present Cognition (Neuro): normal cognition Gait exam (Neuro): Normal gait present Motor exam (neuro): 5/5 motor strength present throughout Sensory Exam: No Sensory deficit (Neuro) Extrem Other: Right lower extremity: 1+ edema noted. Palpable DP pulses. No varicosities noted; however, pt would not pull up pant legs and would not change into shorts. Left lower extremity: trace edema noted. General: Yes normal to inspection, Yes full ROM, Yes capillary refill normal and Yes normal gait Results Reviewed Results Reviewed: Brief summary of venous insufficiency testing is as follows: right great saphenous vein: negative right small saphenous vein: negative right accessory vein: none present left extremity: not done Please note there is no evidence of any venous aneurysms or significant tortuosity Assessment & Plan Assessment & Plan (1) Varicose veins of both lower extremities with inflammation: Code(s): I83.11 - Varicose veins of right lower extremity with inflammation; I83.12 - Varicose veins of left lower extremity with inflammation Category: Medical Plan: Spencer is presenting today for a follow up to US on 02/04. He is presenting with Finn, whom works with him. Spencer is very impatient again. We discussed that what we got from the reveals no venous insufficiency. We discussed that there was not a complete test, so if he continues with symptoms, we may need to repeat the testing. In the meantime we continue to recommend elevation, compression stockings, and physical activity. The pt is usually non-compliant with treatment but we discussed to continue to encourage it if possible. If symptoms worsen or change, we advised them to reach back out to us. if there are any questions or concerns, please do not hesitate to reach out to us. Coding Level of Care Code Est Pt Level 4 (66572) Diagnoses Varicose veins of both lower extremities with inflammation I83.11; I83.12 Comment review of US
== END 2024-02-18 11:10 | disposition home or self-care (01) ==
PROVIDERS: PCP Internal Medicine; Visit Provider Physician Assistant Surgical
DX: I83.11 Varicose veins of right lower extremity with inflammation (principal); I83.12 Varicose veins of left lower extremity with inflammation
CPT/HCPCS: 99214

== ENCOUNTER → 2024-02-18 10:47 | Outpatient (BNVA) | payer MEDICARE, MEDICAID, SELFPAY | PROVIDERS: PCP Internal Medicine; Visit Provider Physician Assistant Surgical | DX: I83.11 Varicose veins of right lower extremity with inflammation (principal); I83.12 Varicose veins of left lower extremity with inflammation | CPT/HCPCS: 99212 ==

== ENCOUNTER 2024-08-22 10:51 | Outpatient (AMB) | payer MEDICARE, MEDICAID, SELFPAY ==
--- NOTE | 2024-08-22 11:01 | MHC.OFFVIS ---
Vital Signs 08/22/24 11:02 Height 6 ft Weight 236 lb 5.369 oz BMI 32.0 BP 110/60 Blood Pressure Location Lt brachial Position Sitting Pulse 91 Pulse Source Monitor Intake Visit Reasons: 1 year fu Intake Note: 1 yr f/up Ambulatory Care Coordinator Required: No Accompanied by: Self / Same As Patient Allergies Penicillins Allergy (Mild, Verified 04/13/24 16:13) RASH haloperidol (From Haldol) Adverse Reaction (Severe, Verified 04/13/24 16:13) OVER SEDATION Medication List - Last Reconciled 08/22/24 by Chau Fam MD acetaminophen 500 mg PO Q8H PRN ammonium lactate 12% 1 appl topical BID PRN 24 days ascorbic acid (vitamin C) (Vitamin C) 500 mg PO BID betamethasone, augmented 0.05 % (Diprolene (augmented)) 1 appl topical DAILY PRN 10 days cholecalciferol (vitamin D3) 25 mcg PO DAILY citalopram 40 mg PO DAILY clozapine 100 mg PO BID clozapine 150 mg PO BEDTIME divalproex ER 1,000 mg PO BID ferrous fumarate 324 mg PO DAILY lactase (Lactaid) 3,000 units PO TID PRN loperamide (Imodium A-D) 2 mg PO Q8H PRN lorazepam 1 mg PO BID magnesium hydroxide (Milk of Magnesia) 15 mL PO DAILY PRN metoprolol tartrate 12.5 mg (1/2 x 25 mg) PO BEDTIME multivitamin with folic acid 400 mcg (Thera) 1 tab PO DAILY omega 0-qpa-ets-fish oil 1,200 (144-216) mg (Fish Oil) 2 caps PO QPM terazosin 10 mg PO BEDTIME 90 days trazodone 100 mg PO BEDTIME PRN vibegron 75 mg PO DAILY 90 days HPI Comments Details: [age] year gentleman who is here for follow-up. He has bifascicular block on EKG and schizophrenia. He has been following with us for few years. He continues to have bifascicular block on the EKG but has never reported any symptoms. History is limited because of schizophrenia. [facility] Medical History Stasis dermatitis of right lower extremity due to peripheral venous hypertension Unsteady gait Normocytic normochromic anemia Right leg swelling Disability, developmental History of developmental disability COVID-19 vaccine administered COVID-19 Right fibular fracture Urinary incontinence Stasis dermatitis of both legs Chronic venous insufficiency of lower extremity Impaired fasting glucose Tubular adenoma of colon Essential hypertension Hypertriglyceridemia BPH (benign prostatic hyperplasia) Surgical History Hx of cystoscopy History of esophagogastroduodenoscopy (EGD) (~12/23/11) History of colonoscopy (~09/30/11) Family History Father No problems noted. Mother No problems noted. Social History Household Members: Other Housing: Assisted Living Facility Housing Other:: long term Are you a primary daytime caregiver to a significant other at home: No Do you presently have visiting nurse or other home services: Yes (long term staff) Alcohol intake: never Patient Tobacco Use Status: Never used Tobacco e-Cigarette/Vaping Use: Never Used Second Hand Smoke Exposure: No service: No Current occupational status: disabled Cognitive needs: Yes Hearing needs: No Vision needs: No Review of Systems Const Denies chills, Denies fatigue, Denies fever(s), Denies frequent falls, Denies weakness, Denies weight gain and Denies weight loss ENT Denies dizziness Card Denies chest pain, Denies leg edema, Denies lightheadedness, Denies palpitations, Denies dyspnea and Denies dyspnea on exertion Resp Denies cough, Denies dyspnea and Denies dyspnea on exertion GI Denies hematochezia Musc Denies abnormal gait, Denies muscle weakness, Denies numbness, Denies radiating pain into limb and Denies tingling Neuro Denies abnormal gait, Denies dizziness, Denies frequent falls, Denies numbness, Denies tingling and Denies weakness Endo Denies fatigue and Denies palpitations Physical Exam Vital Signs: Last Vital Signs Pulse 91 08/22/24 11:02 BP 110/60 08/22/24 11:02 BMI result Body Mass Index 32.0 GENERAL APPEARANCE: in no acute distress. NECK/THYROID: no carotid bruit, no jugular venous distention. SKIN: no suspicious lesions, warm and dry. HEART: no murmurs, regular rate and rhythm, S1, S2 normal. LUNGS: clear to auscultation bilaterally. ABDOMEN: normal, bowel sounds present, soft, nontender, nondistended. PERIPHERAL PULSES: equal. NEUROLOGIC: alert and following commands. Moving all extremities. Office Procedures EKG Details: Sinus rhythm 91 beats per minute, right bundle-branch block, left anterior fascicular block, left ventricular hypertrophy, QTC 506 milliseconds. [id number], Complete Assessment & Plan Assessment & Plan (1) Essential hypertension: Code(s): I10 - Essential (primary) hypertension Category: Medical (2) Bifascicular block: Code(s): I45.2 - Bifascicular block Category: Medical Plan [age] year gentleman who is here for follow-up. He has schizophrenia and bifascicular block. He also has hypertension. His blood pressure is well controlled currently. Continues to have bifascicular block on EKG but no history of syncope or dizziness. He will see us back in 1 year. Thank you for allowing me to participate in the care of your patient. Please feel free to contact me if you have any questions. Coding Level of Care Code Est Pt Level 3 (15670) Diagnoses Essential hypertension I10 Bifascicular block I45.2 CPT Codes EKG - CPT: 30306-[id number], Complete ([id number])
[2024-08-22 11:02] VITALS: BP 110/60; PULSE 91; BMI 32.0
--- OUTSIDE RECORDS SUMMARY | 2024-08-22 12:17 | XMS_ITS ---
Author Organization [facility] Care Team Providers Care Clinical Rn Liaison Name Role Phone Leann Jesus Unavailable Unavailable Chikis Adorno Unavailable Unavailable Catrina Mike Unavailable Unavailable Ileana Paige Unavailable Unavailable Allergies and adverse reactions Code CodeSystem Substance Reaction Severity StartDate Concern Status poison sumac Unknown 01/06/2020 active poison brian Unknown 01/06/2020 active 7984 RXNORM Penicillin Unknown 01/06/2020 active Care Team Name Role Address Phone Organization Dates Chikis Adorno PCP [address] [place] [address] (Office): : [facility] 01/07/2020 - 02/04/2020 Leann Jesus [address] [place] [address] (Office): : [phone] [facility] 01/07/2020 - 02/04/2020 Catrina Mike [address] [place] [address] (Office): : [facility] 01/07/2020 - 02/04/2020 Ileana Paige [address] [place] [address], [facility] (Office): : [facility] 01/07/2020 - 02/04/2020 Goals Section Goals Description Status Target Date I will enjoy participating i n a satisfying activity program through the next review date. Active 04/08/2020 I will maintain my current l evel of ADL self care through next care review. Active 04/08/2020 Will have intake >75% of barron ls W ill have stable weights W ill tolerate diet Active 04/08/2020 Mental Status Section Date Assessment Total Score Description 02/04/2020 CAM 0 No delirium ind icated 01/12/2020 BIMS 12 moderate cognit aston impairment CAM 0 No delirium ind icated PHQ-9 01 minimal depress ion Problems Problem # Description Date of onset Resolved Date Code CodeSystem Concern Status 1 UNSTEADINESS ON FEET 01/25/[address] active 2 COVID-19 01/19/[address] active 3 BENIGN PROSTATIC HYPERPLASIA WITH LOWER URINARY TRACT SYMPTOMS 01/06/[address] active 4 BIFASCICULAR BLOCK 01/06/[address] active 5 FALL FROM BED, SEQUELA 01/06/[address] active 6 OTHER ABNORMALITIES OF GAIT AND MOBILITY 01/06/[address] active 7 REPEATED FALLS 01/06/[address] ac tive 8 RHABDOMYOLYSIS 01/06/[address] ac tive 9 SCHIZOPHRENIA, UNSPECIFIED 01/06/[address] active 10 WEAKNESS 01/06/[address] active Reason for Referral No Reasons for Referral Entered Social History Social History Observation Description Start Date End Date Code Code System Current Smoking Status Tobacco smoking consumption unknown 803417991 SNOMED CT Sex Assigned At Male 1965 36613-4 [facility] Gender Identity Vital Signs Code Code System Vitals Name Values and Units Timing Information 9279-1 [facility] Respiratory Rate Value=18.0 Units=/m in 02/04/2020 8462-4 LOINC Blood Pressure-Diastolic Value=78 Un its=mmHg 02/04/2020 8480-6 LOINC Blood Pressure-Systolic Iicng=789 Un its=mmHg 02/04/2020 8310-5 [facility] Body Temperature Value=96.9 Units= F 02/04/2020 8867-4 [facility] Heart rate Dholu=456.0 Units=/min 02/04/2020 97036-2 LOINC O2 % BldC Oximetry Value=94.0 Units= % 02/04/2020 8302-2 LOINC Height Value=68.0 Units=Inches 01/17/2020 79519-1 LOINC Weight Zuwmz=401.3 Units=Lbs 01/2020
== END 2024-08-22 11:19 | disposition home or self-care (01) ==
LOC: HO.HCS 10:52
PROVIDERS: PCP Internal Medicine; Visit Provider Internal Medicine Cardiovascular Disease
DX: I10 Essential (primary) hypertension (principal); I45.2 Bifascicular block
CPT/HCPCS: 93010; 99213

== ENCOUNTER → 2024-08-22 10:51 | Outpatient (BNVA) | payer MEDICARE, MEDICAID, SELFPAY | PROVIDERS: PCP Internal Medicine; Visit Provider Internal Medicine Cardiovascular Disease | DX: I10 Essential (primary) hypertension (principal); I45.2 Bifascicular block; I51.7 Cardiomegaly; R94.31 Abnormal electrocardiogram [ECG] [EKG] | CPT/HCPCS: 93005; 99212 ==

== ENCOUNTER 2024-11-11 11:36 | Outpatient (AMB) | payer MEDICARE, MEDICAID, SELFPAY ==
--- NOTE | 2024-11-11 11:44 | MHC.OFFVIS ---
Intake Visit Reasons: 1y/PVR Intake Note: Patient is Present for 1 yr follow up Urology Med: Terazosin, VIBEGRON (Insurance no longer covering Myrbetriq) Antibiotic Allergy: Penicillins Blood Thinner:none TODAY'S PVR: 104ML'S Recruiting Operations Consultant Required: No Accompanied by: DAMEON Allergies Penicillins Allergy (Mild, Verified 11/11/24 11:54) RASH haloperidol (From Haldol) Adverse Reaction (Severe, Verified 11/11/24 11:54) OVER SEDATION HPI Comments Details: Spencer is a pleasant male. He is a patient of Dr. Valladares. Resident of a [facility]. Accompanied by caregiver. He is seen for the following urologic issue - Lower Urinary Tract Symptoms - weak stream Accompanied by hardware sales assistant from [facility]pc Gemtessa plus terazosin continue to prove effective Vitamin-C 1000 mg daily Low PVR Does have occasional accidents at day program Recommend timed voiding Q 3 hour particularly during the day at day program - this would require day program to place him on toilet for 2 minutes every 3 hours Lower urinary tract symptoms Longstanding Secondary to psychiatric medications side effects Current medications - terazosin and Gemtesa Prior medications Flomax and Detrol LA Good effect with minimal accidents PSA 07/19 0.3, 02/21 0.3 PFSH Medical History Stasis dermatitis of right lower extremity due to peripheral venous hypertension Unsteady gait Normocytic normochromic anemia Right leg swelling Disability, developmental History of developmental disability COVID-19 vaccine administered COVID-19 Right fibular fracture Urinary incontinence Stasis dermatitis of both legs Chronic venous insufficiency of lower extremity Impaired fasting glucose Tubular adenoma of colon Essential hypertension Hypertriglyceridemia BPH (benign prostatic hyperplasia) Surgical History Hx of cystoscopy History of esophagogastroduodenoscopy (EGD) (~12/23/11) History of colonoscopy (~09/30/11) Family History Father No problems noted. Mother No problems noted. Social History Household Members: Other Housing: Assisted Living Facility Housing Other:: [facility]pc Are you a primary cardiac care unit nurse to a significant other at home: No Do you presently have visiting nurse or other home services: Yes ([facility] staff) Alcohol intake: never Patient Tobacco Use Status: Never used Tobacco e-Cigarette/Vaping Use: Never Used Second Hand Smoke Exposure: No service: No Current occupational status: disabled Cognitive needs: Yes Hearing needs: No Vision needs: No Review of Systems Const Denies chills and Denies fever(s) Card Reports no additional complaints and Denies syncope Resp Denies cough GI Denies abdominal pain and Denies heartburn Reports as per HPI and Denies change in libido Neuro Denies syncope Psych Denies change in libido Endo Denies change in libido Physical Exam Const General: cooperative, healthy appearing, comfortable and no acute distress Orientation/consciousness: patient oriented x3 HEENT Face and sinus: Yes normal facial exam Mouth: moist mucous membranes Neck Neck: Yes normal visual inspection, Yes full ROM and Yes trachea midline Chest Chest palpation & inspection: normal inspection of the chest Resp Effort & Inspection: normal respiratory effort, able to speak in complete sentences and no respiratory distress GI Inspection: Yes normal to inspection Back/Spine/Pelvis Cervical Spine: normal cervical lordosis Thoracic/Lumbar Spine: thoracic and lumbar spine normal to inspection Skin General skin exam: no rashes or lesions noted Neuro General: patient oriented x3, gait normal, tone normal and moves all extremities Extrem General: Yes normal to inspection and Yes capillary refill normal Office Procedures Post Void Residual Post Residual Void Post Void Residual (PVR): 104 [id number] Void Residual by ultrasound Assessment & Plan Assessment & Plan (1) Overactive bladder: Code(s): N32.81 - Overactive bladder Category: Medical (2) Detrusor instability of bladder: Code(s): N32.81 - Overactive bladder Category: Medical (3) BPH w urinary obs/LUTS: Code(s): N40.1 - Benign prostatic hyperplasia with lower urinary tract symptoms; N13.8 - Other obstructive and reflux uropathy Category: Medical Plan 12 month follow-up Continue medications Orders: Orders AMB Post Void Residual by ultrasound 11/11/24 N13.8 - Other obstructive and reflux uropathy, N40.1 - Benign prostatic hyperplasia with lower urinary tract symptoms Medications: Refilled terazosin 10 mg PO BEDTIME 90 caps 3RF 90 days N13.8 - Other obstructive and reflux uropathy, N40.1 - Benign prostatic hyperplasia with lower urinary tract symptoms, R35.0 - Frequency of micturition vibegron 75 mg PO DAILY 90 tabs 3RF 90 days N32.81 - Overactive bladder Patient Instructions: This note is constructed using voice recognition software. While every effort has been made to ensure accuracy rotor balancer errors may have been included. Imaging studies, laboratory and physical exam results were discussed and reviewed in detail. No major barriers to patient understanding were identified. An opportunity to ask questions regarding the treatment plan was provided. All questions were answered. The patient expressed understanding and agreement with the above treatment plan. The patient is aware they should contact our office by phone for worsening of their current condition or the appearance of new urologic symptoms. Compliance is encouraged with any medications and followup testing that is ordered. It is a privilege to participate in the urologic care of your patient. If you have any questions or concerns regarding treatment for the above conditions, or other urologic issues, please do not hesitate to contact me. The office telephone contact is [phone]. Sincerely, Dr Kirk Barrera MD, [facility] - Urology Compassionate Specialist Care for the Genitourinary System Coding Level of Care Code Est Pt Level 4 (52119) Complex EM visit Add On G2211 Diagnoses Overactive bladder N32.81 Detrusor instability of bladder N32.81 BPH w urinary obs/LUTS N40.1; N13.8 CPT Codes Post Residual Void - PVR CPT Code: 26639-Zraw Void Residual by ultrasound ([id number])
== END 2024-11-11 12:10 | disposition home or self-care (01) ==
LOC: HO.HUSH 11:38
PROVIDERS: PCP Internal Medicine; Visit Provider Urology
DX: N32.81 Overactive bladder (principal); N40.1 Benign prostatic hyperplasia with lower urinary tract symptoms; N13.8 Other obstructive and reflux uropathy
CPT/HCPCS: 99214; G2211

== ENCOUNTER → 2024-11-11 11:36 | Outpatient (BNVA) | payer MEDICARE, MEDICAID, SELFPAY | PROVIDERS: PCP Internal Medicine; Visit Provider Urology | DX: N32.81 Overactive bladder (principal); N40.1 Benign prostatic hyperplasia with lower urinary tract symptoms; N13.8 Other obstructive and reflux uropathy | CPT/HCPCS: 51798; 99212 ==

== ENCOUNTER 2024-12-12 14:48 | Outpatient (AMB) | payer MEDICARE, MEDICAID, SELFPAY ==
--- OUTSIDE RECORDS SUMMARY | 2024-12-12 14:51 | XMS_ITS | Patient Health Record ---
Author Organization [facility] Address [address] [place] [address] Care Team Providers Care Ecommerce Project Manager Name Role Phone Blaine MOSLEY, Pauline Primary Care Provider Jerardo Montano Jr Unavailable Allergies Allergen (clinical drug ingredient) Drug/Non Drug Allergy documented on EMR Reaction Allergy Type Onset Date Status Penicillin (uncoded) Unknown Allergy Active Haldol (uncoded) Unknown Allergy Act aston Reason For Referral No Information Medications Medication SIG (Take, Route, Frequency, Duration) Notes Start Date End Date Status Senna 17.2 1 tablet Orally prn Active Clozaril 75 mg 1 tablet Orally once a day Active Lactaid 3000 UNIT 1 tablet Orally prn Active Magnesium Hydroxide 15 ml 15 ml as needed Orally prn Active oxyBUTYnin Chloride ER 10 MG 1 tablet Orally Once a day A ctive Metoprolol Tartrate 12.5 mg 1 tablet Orally qhs Active Ativan 1 MG 1 tablet as needed O rally Twice a day Active Multi Vitamin/Minerals 1 1 Orally qd Active CeleXA 40 MG 0.5 tablet Orally On ce a day Active cloZAPine 100 MG 1 tablet Orally Once a day Active Colyte with Flavor Packs 240 GM As directed Orally Over the specified time.; Duration: 1 day(s) 03/30/2015 Active Tactinal Extra Strength 500 MG 1 tablet as needed Orally every 6 hrs/prn Active Imodium A-D 2 MG 1 tablet Orally 8 ti me(s) a day/prn Active Vitamin C 500 MG 2 tablet Orally Once a day Active Depakote ER 500 MG 2 Orally qd Active Vitamin D 1000 UNIT 1 tablet Orally Once a day Active Depakote 375 mg 1 tablet Orally Once a day Active Immunizations Vaccine Route Administration Date Status Comme nts Flu vaccine no Preserv 3 and > Unknown 11/21/2014 Admin istered Problems Problem Type SNOMED Code ICD Code Onset Dates Problem Status W/U Status Risk Notes Problem Colon cancer screening (985651016) Colon cancer screening (Z12.11) Active confirmed Problem Anxiety disorder (982616676) Anxiety disorder, unspecified (F41.9) Active confirmed Problem Bipolar disorder (83452992) Bipolar affective disorder, remission status unspecified (F31.9) Active confirmed Problem Schizophrenia (88627643) Schizophrenia, unspecified type (F20.9) Active confirmed Plan Of Treatment Future Test Test Name Order Date COLONOSCOPY 03/30/2015 Insurance Providers Payer Name Payer Address Payer Phone Subscriber Number Group Number Insured Name Patient Relationship to Insured Coverage Start Date Coverage End Date MEDICARE OF [place] [address] [place] [id number] [phone] [id number] [id number] ELLIOTT Self - patient is the insured MEDICAID OF [facility] [address] [place] [address] [id number] ELLIOTT Self - patient is the insured Medical (General) History Medical History History ICD Code Past Abnormal liver function test Fecal incontience Drop Foot Deep vein thrombosis Anxiety Bipolar disorder Edema Question of Anemia Urinary incontinence Denies NC,DM,CVA,Lung disease,renal dise ase
[2024-12-12 15:08] VITALS: BP 120/70; PULSE 77; RESP 16; TEMP 36.4; O2SAT 96; BMI 33.8
--- NOTE | 2024-12-12 15:08 | A.OFFPC_ITS ---
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 Required: No Allergies Penicillins Allergy (Mild, Verified 12/12/24 15:29) RASH haloperidol (From Haldol) Adverse Reaction (Severe, Verified 12/12/24 15:29) OVER SEDATION Medication List - Last Reconciled 12/12/24 by Pauline Valladares MD acetaminophen 500 mg PO Q8H PRN ammonium lactate 12% 1 appl topical BID PRN 24 days ascorbic acid (vitamin C) (Vitamin C) 500 mg PO BID betamethasone, augmented 0.05 % (Diprolene (augmented)) 1 appl topical DAILY PRN 10 days cholecalciferol (vitamin D3) 25 mcg PO DAILY citalopram 40 mg PO DAILY clozapine 100 mg PO BID clozapine 150 mg PO BEDTIME divalproex ER 1,000 mg PO BID ferrous fumarate 324 mg PO DAILY lactase (Lactaid) 3,000 units PO TID PRN loperamide (Imodium A-D) 2 mg PO Q8H PRN lorazepam 1 mg PO BID magnesium hydroxide (Milk of Magnesia) 15 mL PO DAILY PRN metoprolol tartrate 12.5 mg (1/2 x 25 mg) PO BEDTIME multivitamin with folic acid 400 mcg (Thera) 1 tab PO DAILY omega 3-jve-dbg-fish oil 1,200 (144-216) mg (Fish Oil) 2 caps PO QPM terazosin 10 mg PO BEDTIME 90 days trazodone 100 mg PO BEDTIME PRN vibegron 75 mg PO DAILY 90 days Tobacco use date assessed: 12/12/24 Dental Screening Dental Screen Date: 12/12/24 Did you have a dental visit in the last 12 months?: Yes Did you have a dental problem in the last 6 months where you did not have access to dental care?: No Was dental information given to patient?: Patient has dentist [facility] Medical History Stasis dermatitis of right lower extremity due to peripheral venous hypertension Unsteady gait Normocytic normochromic anemia Right leg swelling Disability, developmental History of developmental disability COVID-19 vaccine administered COVID-19 Right fibular fracture Urinary incontinence Stasis dermatitis of both legs Chronic venous insufficiency of lower extremity Impaired fasting glucose Tubular adenoma of colon Essential hypertension Hypertriglyceridemia BPH (benign prostatic hyperplasia) Surgical History Hx of cystoscopy History of esophagogastroduodenoscopy (EGD) (~12/23/11) History of colonoscopy (~09/30/11) Family History Father No problems noted. Mother No problems noted. Social History Household Members: Other Housing: Assisted Living Facility Housing Other:: care home Are you a primary manager care management to a significant other at home: No Do you presently have visiting nurse or other home services: Yes (care home [facility]) Alcohol intake: never Patient Tobacco Use Status: Never used Tobacco e-Cigarette/Vaping Use: Never Used Second Hand Smoke Exposure: No service: No Current occupational status: disabled Cognitive needs: Yes Hearing needs: No Vision needs: No Questionnaire PHQ-9 Over the last 2 weeks, how often have you been bothered by any of the following problems? 1. Little interest or pleasure in doing things: more than half the days 2. Feeling down, depressed, or hopeless: not at all 3. Trouble falling or staying asleep, or sleeping too much: not at all 4. Feeling tired or having little energy: not at all 5. Poor appetite or overeating: not at all 6. Feeling bad about yourself - or that you are a failure or have let yourself or your family down: not at all 7. Trouble concentrating on things, such as reading the newspaper or watching television: not at all 8. Moving or speaking so slowly that other people could have noticed. Or the opposite - being so fidgety or restless that you have been moving around a lot more than usual: not at all 9. Thoughts that you would be better off or of hurting yourself in some way: not at all Total score: 2 Source: Developed by Drs. Henrik Hook, Phuong Pollock, Kei Jett and colleagues, with an educational chin from [employer]. Thrive Questionnaire Date Thrive assessed: 11/30/23 I am a: Parent/Caregiver What is your living situation today?: I have a steady place to live Within the past 12 months, did the food you bought not last and you didn't have the money to get more?: Never true Within the past 12 months, did you worry whether your food would run out before you got money to buy more?: Never true Do you have trouble paying for medicines?: No Do you have trouble getting transportation to medical appointments?: I choose not to answer this question Do you have trouble paying your heating and electricity bill?: I choose not to answer this question Do you have trouble taking care of your child, family member or friend?: I choose not to answer this question Do you have trouble with day-to-day activities such as bathing, preparing meals, shopping, managing finances, etc.?: I choose not to answer this question Are you currently unemployed and looking for a job?: I choose not to answer this question Are you interested in more education?: I choose not to answer this question Please select the resources that you would like help with: None Currently or been in a relationship where the following occur: No concerns reported THRIVE Score: 0 AUDIT C Alcohol Use Questionnaire (AUDIT-C) 1. How often do you have a drink containing alcohol?: Never Total Score: 0 NANNETTE-7 AMB Questionnaire NANNETTE-7 Date NANNETTE - 7 assessed: 11/30/23 Feeling nervous, anxious, or on edge: 0 = Not at all Not being able to stop or control worryin = Not at all Worrying too much about different things: 0 = Not at all Trouble relaxin = Not at all Being so restless that it is hard to sit still: 0 = Not at all Becoming easily annoyed or irritable: 0 = Not at all Feeling afraid as if something awful might happen: 0 = Not at all Total NANNETTE-7 score (0-4 normal; 5-9 mild; 10-14 moderate; 15-21 severe): 0 Source: Developed by Phuong Rojo Kurt Kroenke and colleagues, with an educational chin from [employer]. Physical exam (Primary Care) Vital Signs: Last Vital Signs Temp 97.6 F 12/12/24 15:08 Pulse 77 12/12/24 15:08 Resp 16 12/12/24 15:08 BP 120/70 12/12/24 15:08 Pulse Ox 96 12/12/24 15:08 Oxygen Delivery Method Room Air 12/12/24 15:08 BMI result Body Mass Index 33.8 Tobacco/Smoking Status: Tobacco use Status Tobacco use date assessed 12/12/24 12/12/24 15:10 Patient Tobacco Use Status Never used Tobacco 12/12/24 15:10 e-Cigarette/Vaping Use Never Used 12/12/24 15:10 PHQ-9: PHQ-9 Score PHQ-9: Total score 2 12/12/24 15:35 Thrive Assessment: Date of Thrive Assessment Date Thrive assessed 11/30/23 12/12/24 15:10 Currently or been in a relationship where the following occur: No concerns reported Office Procedures Flu Questionnaire Does the patient have a severe egg allergy?: No Does the patient have severe life threatening allergies?: No Does the patient have a fever or illness today?: No Has the patient ever had Guillain-Shalimar Syndrome?: No Has the patient ever had any past reaction to a flu shot?: No Immunizations Fluarix [id number] (PF) 45 mcg (15 mcg x 3)/0.5 mL IM syringe Performing Provider: Pauline Valldaares MD Performing Location: [facility] [place] [facility] Administered by: Bianca Lanza CMA on 12/12/24 16:03 Dose Route Admin Location Dispensed Lot Number Expiration Date [facility] Presiding Judge 0.5 mL IM Right Deltoid 0.5 mL [id number] 08/29/25 [id number] [employer] VIS Given Date VIS Provided VIS Publication Date 12/12/24 Single Vaccine 24 Eligibility Eligibility Date Funding Source Not [facility] Eligible 12/12/24 Private Coding Diagnoses Schizophrenia, unspecified type F20.9 Schizophrenia type: unspecified Hypertriglyceridemia E78.1 Essential hypertension I10 Tubular adenoma of colon D12.6 Impaired fasting glucose R73.01 Chronic venous insufficiency of lower extremity I87.2 BPH w urinary obs/LUTS N40.1; N13.8 Normocytic normochromic anemia D64.9 Elevated vitamin B12 level R79.89 Annual visit for general adult medical examination with abnormal findings Z. Assessment & Plan Assessment & Plan (1) Schizophrenia: Code(s): F20.9 - Schizophrenia, unspecified Category: Medical Qualifiers: Schizophrenia type: unspecified Qualified Code(s): F20.9 - Schizophrenia, unspecified (2) Hypertriglyceridemia: Code(s): E78.1 - Pure hyperglyceridemia Category: Medical (3) Essential hypertension: Code(s): I10 - Essential (primary) hypertension Category: Medical (4) Tubular adenoma of colon: Code(s): D12.6 - Benign neoplasm of colon, unspecified Category: Medical (5) Impaired fasting glucose: Code(s): R73.01 - Impaired fasting glucose Category: Medical (6) Chronic venous insufficiency of lower extremity: Code(s): I87.2 - Venous insufficiency (chronic) (peripheral) Category: Medical (7) BPH w urinary obs/LUTS: Code(s): N40.1 - Benign prostatic hyperplasia with lower urinary tract symptoms; N13.8 - Other obstructive and reflux uropathy Category: Medical (8) Normocytic normochromic anemia: Code(s): D64.9 - Anemia, unspecified Category: Medical (9) Elevated vitamin B12 level: Code(s): R79.89 - Other specified abnormal findings of blood chemistry (10) Annual visit for general adult medical examination with abnormal findings: Code(s): Z00. - Encounter for general adult medical examination with abnormal findings Orders: Orders Ferritin Today D12.6 - Benign neoplasm of colon, unspecified, D64.9 - Anemia, unspecified, E78.1 - Pure hyperglyceridemia, F20.9 - Schizophrenia, unspecified, I10 - Essential (primary) hypertension, I87.2 - Venous insufficiency (chronic) (peripheral), N13.8 - Other obstructive and reflux uropathy, N40.1 - Benign p rostatic hyperplasia with lower urinary tract symptoms, R73.01 - Impaired fasting glucose Complete Blood Count Auto Diff Today D12.6 - Benign neoplasm of colon, unspecified, D64.9 - Anemia, unspecified, E78.1 - Pure hyperglyceridemia, F20.9 - Schizophrenia, unspecified, I10 - Essential (primary) hypertension, I87.2 - Venous insufficiency (chronic) (peripheral), N13.8 - Other obstructive and reflux uropathy, N40.1 - Benign prostatic hyperplasia with lower urinary tract symptoms, R73.01 - Impaired fasting glucose Lipid Panel Today D12.6 - Benign neoplasm of colon, unspecified, D64.9 - Anemia, unspecified, E78.1 - Pure hyperglyceridemia, F20.9 - Schizophrenia, unspecified, I10 - Essential (primary) hypertension, I87.2 - Venous insufficienc y (chronic) (peripheral), N13.8 - Other obstructive and reflux uropathy, N40.1 - Benign prostatic hyperplasia with lower urinary tract symptoms, R73.01 - Impaired fasting glucose Alanine Aminotransferase Today D12.6 - Benign neoplasm of colon, unspecified, D64.9 - Anemia, unspecified, E78.1 - Pure hyperglyceridemia, F20.9 - Schizophrenia, unspecified, I10 - Essential (primary) hypertension, I87.2 - Venous insufficiency (chronic) (peripheral), N13.8 - Other obstructive and reflux uropathy, N40.1 - Benign prostatic hyperplasia with lower urinary tract symptoms, R73.01 - Impaired fasting glucose Vitamin B12 and Folate Today D64.9 - Anemia, unspecified, R73.01 - Impaired fasting glucose, R79.89 - Other specified abnormal findings of blood chemistry IRON PROFILE Today D12.6 - Benign neoplasm of colon, unspecified, D64.9 - Anemia, unspecified, E78.1 - Pure hyperglyceridemia, F20.9 - Schizophrenia, unspecified, I10 - Essential (primary) hypertension, I87.2 - Venous insufficiency (chronic) (peripheral), N13.8 - Other obstructive and reflux uropathy, N40.1 - Benign prostatic hyperplasia with lower urinary tract symptoms, R73.01 - Impaired fasting glucose Basic Metabolic Panel Fasting Today D12.6 - Benign neoplasm of colon, unspecified, D64.9 - Anemia, unspecified, E78.1 - Pure hyperglyceridemia, F20.9 - Schizophrenia, unspecified, I10 - Essential (primary) hypertension, I87.2 - Venous insufficiency (chronic) (peripheral), N13.8 - Other obstructive and reflux uropathy, N40.1 - Benign prostatic hyperplasia with lower urinary tract symptoms, R73.01 - Impaired fasting glucose Aspartate Amino Transferase Today D12.6 - Benign neoplasm of colon, unspeci fied, D64.9 - Anemia, unspecified, E78.1 - Pure hyperglyceridemia, F20.9 - Schizophrenia, unspecified, I10 - Essential (primary) hypertension, I87.2 - Venous insufficiency (chronic) (peripheral), N13.8 - Other obstructive and reflux uropathy, N40.1 - Benign prostatic hyperplasia with lower urinary tract symptoms, R73.01 - Impaired fasting glucose Vitamin D 25-OH Total Today D12.6 - Benign neoplasm of colon, unspecified, D64.9 - Anemia, unspecified, E78.1 - Pure hyperglyceridemia, F20.9 - Schizophrenia, unspecified, I10 - Essential (primary) hypertension, I87.2 - Veno us insufficiency (chronic) (peripheral), N13.8 - Other obstructive and reflux uropathy, N40.1 - Benign prostatic hyperplasia with lower urinary tract symptoms, R73.01 - Impaired fasting glucose PSA,Total (Free>4and<10) Today D12.6 - Benign neoplasm of colon, unspecified, D64.9 - Anemia, unspecified, E78.1 - Pure hyperglyceridemia, F20.9 - Schizophrenia, unspecified, I10 - Essential (primary) hypertension, I87.2 - Venous insufficiency (chronic) (peripheral), N13.8 - Other obstructive and reflux uropathy, N40.1 - Benign prostatic hyperplasia with lower urinary tract symptoms, R73.01 - Impaired fasting glucose Influenza [id number] Immunization Today Z23 - Encounter for immunization Referrals Gastroenterology Referral D12.6 - Benign neoplasm of colon, unspecified
== END 2024-12-12 15:55 | disposition home or self-care (01) ==
LOC: HO.HMCC 14:49
PROVIDERS: PCP Internal Medicine; Visit Provider Internal Medicine
DX: Z23 Encounter for immunization (principal)

== ENCOUNTER → 2024-12-12 14:48 | Outpatient (BNVA) | payer MEDICARE, MEDICAID, SELFPAY | PROVIDERS: PCP Internal Medicine; Visit Provider Internal Medicine | DX: Z00.01 Encounter for general adult medical examination with abnormal findings (principal); F20.9 Schizophrenia, unspecified; R79.89 Other specified abnormal findings of blood chemistry; E78.1 Pure hyperglyceridemia; I10 Essential (primary) hypertension; R73.01 Impaired fasting glucose; I87.2 Venous insufficiency (chronic) (peripheral); N40.1 Benign prostatic hyperplasia with lower urinary tract symptoms; N13.8 Other obstructive and reflux uropathy; D64.9 Anemia, unspecified; Z23 Encounter for immunization; Z86.0100 Personal history of colon polyps, unspecified | CPT/HCPCS: 90471; 90656; 99396 ==

== ENCOUNTER 2024-12-24 07:41 | Outpatient (REF) | payer MEDICARE, MEDICAID, SELFPAY ==
--- OUTSIDE RECORDS SUMMARY | 2024-12-24 07:44 | XMS_ITS | Patient Health Record ---
Author Organization [facility] Address [address] [place] [address] Care Team Providers Care Senior Front End Engineer Name Role Phone Blaine MOSLEY, Pauline Primary [...] Status Risk Notes Problem Colon cancer screening (126957056) Colon cancer screening (Z12.11) Active confirmed Problem Anxiety disorder (736778988) Anxiety disorder, unspecified (F41.9) Active confirmed Problem Bipolar disorder (54747017) Bipolar affective disorder, remission status unspecified (F31.9) Active confirmed Problem Schizophrenia (57867360) Schizophrenia, unspecified type (F20.9) Active confirmed Plan Of Treatment Future Test Test Name Order Date COLONOSCOPY 03/30/2015 Insurance Providers Payer Name Payer Address Payer Phone Subscriber Number Group Number Insured Name Patient Relationship to Insured Coverage Start Date Coverage End Date MEDICARE OF [place] [address] [place] [id number] ELLIOTT Self - patient is the insured MEDICAID OF [facility] [address] [place] [address] [id number] ELLIOTT Self - patient is the insured Medical (General) History Medical History History ICD Code Past Abnormal liver function test Fecal incontience Drop Foot Deep vein thrombosis Anxiety Bipolar disorder Edema Question of Anemia Urinary incontinence Denies IA,DM,CVA,Lung disease,renal dise ase
[2024-12-24 11:10] LABS: MANUAL DIFF FLAG NO
[2024-12-24 11:15] LABS: Hematocrit 37.3 % (42.0-52.0); Hemoglobin 12.5 g/dl (14.0-18.0); Imm Gran Abs Auto 0.01 X10*3/uL (0.00-0.03); Imm Gran Pct Auto 0.1 % (0.0-0.4); Lymphocytes Absolute Auto 2.6 X10*3/uL (1.2-4.9); Mean Corpuscular HGB Conc 33.5 g/dl (31.0-36.0); Mean Corpuscular Hemoglobin 30.7 pg (27.0-33.0); Mean Corpuscular Volume 91.6 fL (80.0-98.0); NRBC Abs Auto 0.000 X10*3/uL (0.0-0.012); NRBC Pct Auto 0.0 /100WBC (0.0-0.2); Platelet Count 177 X10*3/uL (160-400); Red Blood Count 4.07 X10*6/uL (4.60-5.80); White Blood Count 6.8 X10*3/uL (4.8-10.8)
[2024-12-24 11:39] LABS: Alanine Aminotransferase 30 U/L (0-40); Anion Gap 12 (12-20); Aspartate Amino Transferase 29 U/L (5-37); Blood Urea Nitrogen 15 mg/dL (9-16); Calcium 9.3 mg/dL (8.4-10.2); Carbon Dioxide 30 mmol/L (22-29); Chloride 101 mmol/L (96-108); Cholesterol 143 mg/dL (<200); Estimated Glomerular Filt Rate > 60; HDL Cholesterol 48 mg/dL (>40); Iron 74 mcg/dL (45-160); Percent Iron Saturation 25 % (15-50); Potassium 4.0 mmol/L (3.3-5.1); Sodium 139 mmol/L (135-145); Total Iron Binding Capacity 299 mcg/dL (228-428); Triglycerides 84 mg/dL (<150); Unsaturated Iron Binding 225 ug/dL
[2024-12-24 11:44] LABS: PSA,Total (Free>4and<10) 0.34 ng/mL (0.00-4.00)
[2024-12-24 11:55] LABS: Ferritin 157 ng/mL (20-250)
[2024-12-24 12:44] LABS: Folate 13.9 ng/mL (> or = 4.0); Vitamin B12 948 pg/mL (200-900)
== END 2024-12-24 07:42 | disposition home or self-care (01) ==
LOC: HO.HMGCLDS 07:41
PROVIDERS: PCP Internal Medicine; Visit Provider Internal Medicine
DX: Z12.5 Encounter for screening for malignant neoplasm of prostate (principal); I10 Essential (primary) hypertension; I87.2 Venous insufficiency (chronic) (peripheral); E78.1 Pure hyperglyceridemia; R73.01 Impaired fasting glucose; D12.6 Benign neoplasm of colon, unspecified; N40.1 Benign prostatic hyperplasia with lower urinary tract symptoms; N13.8 Other obstructive and reflux uropathy; F20.9 Schizophrenia, unspecified; D64.9 Anemia, unspecified; R79.89 Other specified abnormal findings of blood chemistry
CPT/HCPCS: 36415; 80048; 80061; 82306; 82607; 82728; 82746; 83540; 84153; 84450; 84460; 85025